=== PATIENT | male | born 1940 | race Caucasian/White ===

== ENCOUNTER 2018-09-08 11:14 | Outpatient (REF) | payer MEDICARE, OTHER, SELFPAY ==
[2018-09-09 11:05] LABS: Campylobacter PCR SEE COMMENTS; Salmonella PCR SEE COMMENTS; Shiga Toxin PCR SEE COMMENTS; Shigella/Enteroinvasive Ecoli SEE COMMENTS
== END 2018-09-08 11:34 ==
LOC: LBN 11:14
PROVIDERS: Visit Provider Nurse Practitioner Family
DX: R19.4 Change in bowel habit (principal)
CPT/HCPCS: 87329; 87505; 87177; 87324

== ENCOUNTER 2018-10-10 08:54 | Outpatient (CLI) | payer MEDICARE, OTHER, SELFPAY ==
[2018-10-13 11:29] LABS: PSA, Diagnostic 9.3 ng/ml (0-6.5)
== END 2018-10-10 09:14 ==
PROVIDERS: Visit Provider Urology
DX: R97.20 Elevated prostate specific antigen [PSA] (principal)
CPT/HCPCS: 36415; 99213; 84153

== ENCOUNTER 2019-03-31 01:48 | Outpatient (CLI) | payer MEDICARE, OTHER, SELFPAY ==
[2019-03-31 11:11] LABS: ALT 17 U/L (12-78); AST 13 U/L (15-37); Albumin 3.5 g/dL (3.4-5.0); Alkaline Phosphatase 67 U/L (46-116); Anion Gap 10.4 mmol/L (3-11); BUN 14 mg/dL (7-18); Bilirubin, Total 0.5 mg/dL (0.2-1.0); CO2 25.6 mmol/L (21.0-32.0); CREATININE 0.67 mg/dL (0.70-1.30); Calcium 8.9 mg/dL (8.5-10.1); Chloride 106 mmol/L (98-107); Glucose 98 mg/dL (70-100); Potassium 4.3 mmol/L (3.5-5.1); Sodium 142 mmol/L (136-145); Total Protein 6.4 g/dL (6.4-8.2)
[2019-03-31 14:25] LABS: Calculated LDL 131; Cholesterol 202 mg/dL (50-200); HDL Cholesterol 41 mg/dL (40-60); Triglyceride 150 mg/dL (30-150)
[2019-04-01 09:40] LABS: PSA, Diagnostic 9.1 ng/ml (0-6.5)
== END 2019-03-31 02:08 ==
PROVIDERS: Urology
DX: E78.5 Hyperlipidemia, unspecified (principal); K21.9 Gastro-esophageal reflux disease without esophagitis; M17.12 Unilateral primary osteoarthritis, left knee; R97.20 Elevated prostate specific antigen [PSA]
CPT/HCPCS: 36415; 80053; 80061; 83721; 84153

== ENCOUNTER → 2019-05-12 13:58 | Outpatient (BNVA) | payer MEDICARE, OTHER, SELFPAY | PROVIDERS: Visit Provider Urology | DX: R97.20 Elevated prostate specific antigen [PSA] (principal); N40.0 Benign prostatic hyperplasia without lower urinary tract symptoms | CPT/HCPCS: 99213 ==

== ENCOUNTER 2019-11-06 11:03 | Outpatient (CLI) | payer MEDICARE, OTHER, SELFPAY ==
[2019-11-09 10:28] LABS: PSA, Diagnostic 9.6 ng/mL (0.0-6.5)
== END 2019-11-06 11:23 ==
PROVIDERS: Visit Provider Urology
DX: R97.20 Elevated prostate specific antigen [PSA] (principal)
CPT/HCPCS: 36415; 84153

== ENCOUNTER → 2019-11-13 07:54 | Outpatient (BNVA) | payer MEDICARE, OTHER, SELFPAY | PROVIDERS: Referring Provider Family Medicine; Visit Provider Urology | DX: R97.20 Elevated prostate specific antigen [PSA] (principal); R39.15 Urgency of urination; R35.0 Frequency of micturition | CPT/HCPCS: 99213 ==

== ENCOUNTER 2020-05-10 01:43 | Outpatient (CLI) | payer MEDICARE, SELFPAY ==
[2020-05-11 09:56] LABS: PSA, Diagnostic 8.3 ng/mL (0.0-6.5)
== END 2020-05-10 02:03 ==
PROVIDERS: PCP Family Medicine; Visit Provider Urology
DX: R97.20 Elevated prostate specific antigen [PSA] (principal)
CPT/HCPCS: 36415; 84153

== ENCOUNTER → 2020-05-13 07:53 | Outpatient (BNVA) | payer MEDICARE, OTHER, SELFPAY | PROVIDERS: PCP Family Medicine; Visit Provider Urology | DX: R39.15 Urgency of urination (principal); R97.20 Elevated prostate specific antigen [PSA] | CPT/HCPCS: 99213 ==

== ENCOUNTER 2020-11-03 03:19 | Outpatient (CLI) | payer MEDICARE, OTHER, SELFPAY ==
[2020-11-03 21:52] LABS: PSA, Diagnostic 10.6 ng/mL (0.0-6.5)
== END 2020-11-03 03:39 ==
PROVIDERS: PCP Family Medicine; Visit Provider Urology
DX: R97.20 Elevated prostate specific antigen [PSA] (principal)
CPT/HCPCS: 36415; 84153

== ENCOUNTER → 2020-11-11 07:48 | Outpatient (BNVA) | payer MEDICARE, OTHER, SELFPAY | PROVIDERS: PCP Family Medicine; Referring Provider Family Medicine; Visit Provider Urology | DX: R35.1 Nocturia (principal); R97.20 Elevated prostate specific antigen [PSA] | CPT/HCPCS: 99213; 99214 ==

== ENCOUNTER 2021-01-16 09:18 | Outpatient (CLI) | payer MEDICARE, OTHER, SELFPAY ==
--- NOTE | 2021-01-16 09:00 | DI.RAD_ITS ---
EXAM: XR SHOULDER LT COMPLETE 2+V CLINICAL HISTORY: pain. TECHNIQUE: 2D digital imaging was performed. COMPARISON: CR RIGHT SHOULDER COMPLETE from 03/11/2017 FINDINGS: Limited two view study of the left shoulder reveals no evidence of fracture. There is slight upward subluxation of the humeral head in the glenoid fossa which may be associated with significant rotator cuff pathology. There also degenerative subarticular cysts in the lateral aspect of the humeral hea d. Moderate degenerative changes are noted in the glenohumeral joint. There are no calcifications i n the subacromial space. There appears to be a deformity in the clavicle which is probably healed fr acture site. The AC joint is not distracted. IMPRESSION: DATA REPOSITORY: RADIATION DOSE DELIVERED:
--- NOTE | 2021-01-16 09:00 | DI.RAD_ITS ---
EXAM: XR KNEE LT 1V CLINICAL HISTORY: preop. TECHNIQUE: 2D digital imaging was performed. COMPARISON: CR LEFT KNEE 3 VIEW COMPLETE from 10/15/2016 FINDINGS: Single lateral view of the left knee compared to 10/15/2016. Narrowing of the medial joint spaces again noted. On this lateral view there is a thin linear wire d ensity measuring 3 cm in length located behind the distal femur as seen on this single lateral view, not evident in October 2018. Additional views are recommended. IMPRESSION: As above. Probable wire like foreign body. Additional views recommended. DATA REPOSITORY: RADIATION DOSE DELIVERED:
--- NOTE | 2021-01-16 09:00 | DI.RAD_ITS ---
EXAM: XR STANDING ALIGNMENT CLINICAL HISTORY: preop. TECHNIQUE: 2D digital imaging was performed. COMPARISON: CR LEFT KNEE 3 VIEW COMPLETE from 10/15/2016 FINDINGS: There is advanced gdgv-so-ijuy narrowing of the medial compartment of the left knee. Small degenerat shreya subarticular cysts are noted in the medial femoral condyle at this level. Lateral compartment of the left knee exhibits normal height. In the opposite knee there is only mild narrowing of the medi al compartment. Moderate degenerative changes are noted in both hips. Ankles appear unremarkable. No osseous lesion s. However, there is a wire like foreign body measuring 3 cm in length located in the soft tissues m edial to the left knee. Additional views recommended. This finding was not evident on left knee ezio in films performed October 2016 IMPRESSION: Advanced narrowing medial compartment of left knee. Wire like foreign body medial aspect left knee level which was not evident in 2017. Additional views recommended. DATA REPOSITORY: RADIATION DOSE DELIVERED:
== END 2021-01-16 09:19 | disposition home or self-care (01) ==
LOC: DIORS 09:18
PROVIDERS: PCP Family Medicine; Referring Provider Family Medicine; Visit Provider Student in an Organized Health Care Education/Training Program
DX: M17.12 Unilateral primary osteoarthritis, left knee (principal); M25.512 Pain in left shoulder; M75.102 Unspecified rotator cuff tear or rupture of left shoulder, not specified as traumatic; M25.312 Other instability, left shoulder
CPT/HCPCS: 99213; 73030; 73560; 77073

== ENCOUNTER 2021-01-23 09:04 | Outpatient (CLI) | payer MEDICARE, OTHER, SELFPAY ==
[2021-01-23 11:14] LABS: HCT 30.6 % (40.0-50.0); HGB 8.2 g/dL (13.5-17.5); MCH 19.1 pg (27.0-33.0); MCHC 26.8 % (32.0-36.0); MCV 71.2 fL (80-95); MPV 10.3 fL (8.0-11.0); Platelet Count 287 10^3/uL (130-400); RDW 18.7 % (11.8-14.1); RDW-SD 47.8 fL; WBC 2.91 10^3/uL (4.4-10.8)
[2021-01-23 11:31] LABS: Anion Gap 8.4 mmol/L (3-11); BUN 16 mg/dL (7-18); CO2 28.6 mmol/L (21.0-32.0); CREATININE 0.7 mg/dL (0.70-1.30); Calcium 9.1 mg/dL (8.5-10.1); Chloride 106 mmol/L (98-107); Glucose 86 mg/dL (74-106); Potassium 4.5 mmol/L (3.5-5.1); Sodium 143 mmol/L (136-145)
[2021-01-23 11:33] LABS: Source Nasal/Nares
[2021-01-23 16:34] LABS: Absolute Basophil Count 0.02 10^3/uL (0.0-0.2); Absolute Eosinophil Count 0.14 10^3/uL (0.0-0.7); Absolute Lymphocyte Count 0.63 10^3/uL (1.2-3.4); Absolute Monocyte Count 0.28 10^3/uL (0.1-0.8); Absolute Neutrophil Count 1.75 10^3/uL (1.2-6.7); Basophils % 0.7; Lymphocytes % 22.3; Monocytes % 9.9; Neutrophils % 62.1
[2021-01-23 16:35] LABS: Iron 20 ug/dL (65-175); Total Iron Binding Capacity 429 ug/dL (250-450); Transferrin Sat 5 % (20-55)
[2021-01-23 16:51] LABS: Ferritin 4 ng/mL (26-388)
[2021-01-23 20:06] LABS: COVID-19 PCR Negative (Negative)
[2021-01-23 21:45] LABS: PSA, Diagnostic 10.7 ng/mL (0.0-6.5)
[2021-01-25 10:36] LABS: ALT 16 U/L (16-63); AST 10 U/L (15-37); Alkaline Phosphatase 64 U/L (46-116); Bilirubin, Direct 0.1 mg/dL (0.0-0.2); Bilirubin, Total 0.3 mg/dL (0.2-1.0); Total Protein 6.6 g/dL (6.4-8.2)
== END 2021-01-23 09:05 | disposition home or self-care (01) ==
LOC: LBO 09:05
PROVIDERS: Urology; PCP Family Medicine; Visit Provider Student in an Organized Health Care Education/Training Program
DX: M25.562 Pain in left knee (principal); M17.12 Unilateral primary osteoarthritis, left knee; D72.819 Decreased white blood cell count, unspecified; D64.9 Anemia, unspecified; R97.20 Elevated prostate specific antigen [PSA]; Z20.822 Contact with and (suspected) exposure to COVID-19; Z01.818 Encounter for other preprocedural examination; Z01.812 Encounter for preprocedural laboratory examination
CPT/HCPCS: 36415; 80048; 80076; 85027; 87635; 82728; 83540; 83550; 84153; 85007; 85025

== ENCOUNTER 2021-01-23 10:21 | Outpatient (CLI) | payer MEDICARE, OTHER, SELFPAY | END 2021-01-23 10:22 | disposition home or self-care (01) | PROVIDERS: PCP Family Medicine; Visit Provider Student in an Organized Health Care Education/Training Program | DX: Z01.818 Encounter for other preprocedural examination (principal); M17.12 Unilateral primary osteoarthritis, left knee ==

== ENCOUNTER 2021-01-24 22:47 | Outpatient (REF) | payer MEDICARE, OTHER, SELFPAY ==
[2021-01-24 23:23] LABS: HCT 30.9 % (40.0-50.0); HGB 8.3 g/dL (13.5-17.5); MCH 19.4 pg (27.0-33.0); MCHC 26.9 % (32.0-36.0); MCV 72.2 fL (80-95); MPV 10.9 fL (8.0-11.0); Platelet Count 303 10^3/uL (130-400); RBC 4.28 10^6/uL (4.36-5.78); RDW 18.5 % (11.8-14.1); WBC 2.96 10^3/uL (4.4-10.8)
== END 2021-01-24 22:48 | disposition home or self-care (01) ==
LOC: LBN 22:47
PROVIDERS: PCP Family Medicine; Visit Provider Family Medicine
DX: D64.9 Anemia, unspecified (principal)
CPT/HCPCS: 85027

== ENCOUNTER 2021-02-01 01:25 | Outpatient (CLI) | payer MEDICARE, OTHER, SELFPAY ==
--- NOTE | 2021-02-01 08:45 | DI.MRI_ITS ---
EXAM: MR UPPER JOINT LT WO CLINICAL HISTORY: LT SHOULDER PAIN AFTER TRAUMA, M25.519,M25.512 TECHNIQUE: Multiplanar multisequence MRI of the shoulder was performed. COMPARISON: CR XR SHOULDER LT COMPLETE 2+V from 01/16/2021 FINDINGS: MARROW:There is no evidence of fracture nor Hill-Sachs deformity. In large degenerative subarticular cysts noted in the lateral aspect the humeral head measuring approximately 3 cm by 2.4 cm. ROTATOR CUFF MECHANISM: AC JOINT/ACROMIUM: Degenerative changes with impingement.. There is no evidence of os acromiale. Supraspinatus: There is a large full-thickness tear with retraction of the musculotendinous junction to the mid aspect of the humeral head. Moderate atrophy. Infraspinatus: Prominent tendinosis signal. Partial tearing at the musculotendinous junction. Howev er, there is no full-thickness tear. Teres Minor: Intact. No evidence of tear nor muscle atrophy. Subscapularis/anterior cuff: Tendinitis signal. No full-thickness tear. No prominent atrophy BICEPS TENDON: Evident within the intertubercular groove but exhibits tearing and the biceps anchor i s not visualized and presumed torn. LABRUM: In superior labrum there is intrasubstance signal abnormality consistent degenerative change, most prominent and anterior oasis superiorly. There is also some tearing of the anterior labrum. A lso tearing of the posterior labrum. Inferior labrum appears relatively intact GLENOHUMERAL JOINT: Small amount of increased joint fluid. There is fluid in the subacromial bursa. Mild degenerative cartilage changes. No osteophytes. Small degenerative subarticular cysts noted i n the superior osseous glenoid. Inferior glenohumeral ligament is intact. QUADRILATERAL SPACE: No evidence of mass in the region of the axillary nerve and dorsal circumflex hu meral vessels. Visualized triceps muscle at this level appears unremarkable. IMPRESSION: 1. High-grade full-thickness tear of the supraspinatus rotator cuff with retraction musculotendinous junction to the mid humeral head level. Moderate muscle atrophy. There is fluid in the subacromial bursa. There is some pinch mint at the level of the AC joint and acromion. 2. Prominent tendinosis signal in the infraspinatus but without a full-thickness tear. Prominent deg enerative subarticular cyst in the greater tuberosity and posterior lateral aspect of the humeral hea d subjacent to the infraspinatus attachment. Tendinosis signal in the anterior cuff-subscapularis. 3. Biceps tendon tear and multilevel labral tears. 4. Degenerative changes in the glenohumeral joint. No osteophytes. DATA REPOSITORY:
== END 2021-02-01 01:45 ==
PROVIDERS: PCP Family Medicine; Visit Provider Student in an Organized Health Care Education/Training Program
DX: M25.512 Pain in left shoulder (principal); M75.102 Unspecified rotator cuff tear or rupture of left shoulder, not specified as traumatic; S46.212A Strain of muscle, fascia and tendon of other parts of biceps, left arm, initial encounter; M19.012 Primary osteoarthritis, left shoulder
CPT/HCPCS: 73221

== ENCOUNTER → 2021-02-02 11:13 | Outpatient (BNVA) | payer MEDICARE, OTHER, SELFPAY | PROVIDERS: PCP Family Medicine; Referring Provider Family Medicine; Visit Provider Surgery | DX: D50.9 Iron deficiency anemia, unspecified (principal); D72.819 Decreased white blood cell count, unspecified; K21.9 Gastro-esophageal reflux disease without esophagitis; G47.33 Obstructive sleep apnea (adult) (pediatric) | CPT/HCPCS: 99213; 99215 ==

== ENCOUNTER 2021-02-02 13:08 | Outpatient (REF) | payer MEDICARE, OTHER, SELFPAY ==
[2021-02-02 14:42] LABS: HCT 31.5 % (40.0-50.0); HGB 8.5 g/dL (13.5-17.5); MCH 19.5 pg (27.0-33.0); MCV 72.2 fL (80-95); MPV 10.5 fL (8.0-11.0); Platelet Count 236 10^3/uL (130-400); RBC 4.36 10^6/uL (4.36-5.78); RDW-SD 49.8 fL; Reticulocyte 2.2 % (0.5-2.4); WBC 3.58 10^3/uL (4.4-10.8)
[2021-02-02 14:45] LABS: Iron 134 ug/dL (65-175); Total Iron Binding Capacity 419 ug/dL (250-450); Transferrin Sat 32 % (20-55)
[2021-02-02 14:53] LABS: Prothrombin Time 9.6 sec (9.3-11.0)
[2021-02-02 14:56] LABS: ALT 17 U/L (16-63); AST 9 U/L (15-37); Albumin 3.8 g/dL (3.4-5.0); Alkaline Phosphatase 68 U/L (46-116); Anion Gap 11.1 mmol/L (3-11); BUN 14 mg/dL (7-18); Bilirubin, Total 0.4 mg/dL (0.2-1.0); C-Reactive Protein 0.23 mg/dL (0.0-0.3); CO2 26.9 mmol/L (21.0-32.0); CREATININE 0.7 mg/dL (0.70-1.30); Calcium 8.9 mg/dL (8.5-10.1); Chloride 105 mmol/L (98-107); Glucose 110 mg/dL (74-106); Potassium 4.1 mmol/L (3.5-5.1); Sodium 143 mmol/L (136-145); Total Protein 7.2 g/dL (6.4-8.2)
[2021-02-02 15:35] LABS: Ferritin 6 ng/mL (26-388); Folate 17.4 ng/mL (8.6-20.0); Vitamin B12 179 pg/mL (193-986)
== END 2021-02-02 13:09 | disposition home or self-care (01) ==
LOC: LBN 13:08
PROVIDERS: PCP Family Medicine; Visit Provider Surgery
DX: R73.01 Impaired fasting glucose (principal); D50.9 Iron deficiency anemia, unspecified; D64.9 Anemia, unspecified; D72.819 Decreased white blood cell count, unspecified; E78.5 Hyperlipidemia, unspecified; K21.9 Gastro-esophageal reflux disease without esophagitis; G47.33 Obstructive sleep apnea (adult) (pediatric); N40.0 Benign prostatic hyperplasia without lower urinary tract symptoms
CPT/HCPCS: 80053; 85027; 82607; 82728; 82746; 83540; 83550; 85045; 85610; 86140

== ENCOUNTER 2021-02-08 04:14 | Outpatient (CLI) | payer MEDICARE, OTHER, SELFPAY ==
[2021-02-08 10:53] LABS: Source Nasal/Nares
[2021-02-08 15:50] LABS: COVID-19 PCR Negative (Negative)
== END 2021-02-08 04:15 | disposition home or self-care (01) ==
LOC: LBO 04:14
PROVIDERS: PCP Family Medicine; Visit Provider Surgery
DX: Z20.822 Contact with and (suspected) exposure to COVID-19 (principal)
CPT/HCPCS: 87635

== ENCOUNTER 2021-02-10 09:05 | Day surgery (SDC) | payer MEDICARE, OTHER, SELFPAY ==
--- NOTE | 2021-02-10 | DI.CT_ITS ---
Exam(s) CT ABDOMEN PELVIS W EXAM: CT ABDOMEN PELVIS W CLINICAL HISTORY: Fe defn anemia TECHNIQUE: Imaging Protocol: Axial computed tomography images with coronal and sagittal reformatted images were created and reviewed CONTRAST MATERIAL: Intravenous: Omnipaque 350 Contrast volume:100 mL Oral: yes / no COMPARISON: No exams were available for comparison FINDINGS: ABDOMEN: Lung Bases: There is scarring or atelectasis in the lung bases. Liver: Normal density. No measurable mass. Portal, Superior Mesenteric, and Splenic Veins: Unremarkable. Gallbladder and Biliary Tract: No radiodense calculus or dilation. Pancreas: Normal density, no abnormal calcifications or inflammatory process. Spleen: Normal. Adrenals: No masses seen. Kidneys: Normal size, contour and axis. No radiodense stones or obstructive uropathy. Numerous bilate ral renal cysts. The largest is in the superior pole of the right kidney and measures 10.0 x 10.3 x 8.3 cm. Abdominal Aorta: Abdominal portion non-dilated. Mild to moderate atherosclerosis. Bowel: No obstruction or bowel wall thickening. Appendix is unremarkable. Diverticulosis of the sigmo id colon is noted but no acute diverticulitis. There is a large hiatal hernia with a large portion o f the stomach above the diaphragm. Peritoneal Cavity: No ascites, collection or mesenteric inflammatory response. No free air. Lymph Nodes: Within normal limits. Bones: Moderately severe degenerative changes are seen in the lumbar spine. Soft Tissues: Unremarkable. PELVIS: Bladder: Symmetric distention, no gross wall thickening. Reproductive Organs: The prostate gland is markedly enlarged measuring 7.1 x 7.2 x 8 cm. Lymph Nodes: Within normal limits. Bones: Degenerative changes in the lumbar spine. IMPRESSION: 1. Polycystic kidneys. 2. Sigmoid diverticulosis but no evidence of acute diverticulitis. 3. Large hiatal hernia. 4. Marked enlarged prostate gland. RADIATION DOSE DELIVERED: 859.25mGy.cm Total DLP DATA REPOSITORY: All CT scans at this facility are submitted to the National Radiology Data Registry (NRDR) Dose Index Registry (DIR) with the [employer] (A[employer]). RADIATION OPTIMIZATION: All CT scans at this facility use at least one of these dose optimization te chniques: automated exposure control; mA and/or kV adjustment per patient size (includes targeted exa ms where dose is matched to clinical indication); or iterative reconstruction.
--- NOTE | 2021-02-10 09:04 | ANES.PREOP_ITS ---
General Info Date of Service Date Performed: 02/10/21 Height: 5 ft 8 in Weight: 79.889 kg Body Mass Index (BMI): 26.7 Surgical Procedure: Operation Date: 02/10/21 09:50 Proposed Procedures Side Surgeon p Colonoscopy/Gastroscopy Janessa Elizalde, DO Meds Allergies and Home Medications Allergies Allergy/AdvReac Type Severity Reaction Status Date / Time No Known Allergies Allergy Verified 02/07/21 14:34 Home Medication Medication Instructions Recorded acetaminophen 1 tab PO PRN 02/05/18 ferrous sulfate 65 mg PO DAILY 02/07/21 vitamin [id number]-[id number] acid 1 tab SUBLINGUAL DAILY 02/07/21 Current Visit Medications: Current Medications Generic Name Dose Route Start Last Admin Trade Name Freq PRN Reason Stop Dose Admin Iron Sucrose 200 mg/ Sodium 110 mls @ 400 mls/hr 02/10/21 06:00 Chloride IVPB 02/10/21 18:00 DIRECTED XAVIER Ringer's Solution 1,000 mls @ 80 mls/hr 02/10/21 06:00 IV 03/11/21 23:59 INFUSION [facility] IV Miscellaneous Supplies 1 each 02/10/21 06:00 Iv Access IV 03/11/21 23:59 DIRECTED XAVIER Sodium Chloride 0 ml 02/10/21 06:00 Normal Saline Flush 10 Ml Syr IV 03/11/21 23:59 PRN PRN Sodium Chloride 0 ml 02/10/21 06:00 Normal Saline 10 Ml Vial IJ 03/11/21 23:59 DIRECTED PRN Sterile Water 0 ml 02/10/21 06:00 Water,Injection,Sterile 10 Ml Vial IJ 03/11/21 23:59 DIRECTED PRN PFSH Active Problems Active Problems: Problem Status Onset Code Fe deficiency anemia D50.9 Leukopenia D72.819 Anemia D64.9 Advanced directives, counseling/discussion Z71.89 Encounter for [employer] (FAA) examination Z02.9 Onychomycosis B35.1 Pain of shoulder after trauma M25.519 Osteoarthritis of left knee M17.12 Rotator cuff tear, left M75.102 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 Bilateral carpal tunnel syndrome G56.03 Closed fracture of clavicle S42.009A Clostridium difficile diarrhea 08/11/15 A04.72 Enteritis due to Giardia species 11/05/15 A07.1 Sciatica of right side 02/05/17 M54.31 Primary osteoarthritis of left knee 10/15/16 M17.12 Obstructive sleep apnea syndrome G47.33 Inflammatory polyps of colon 01/06/16 K51.40 Impaired fasting glucose 10/20/15 R73.01 Hyperlipidemia 06/16/13 E78.5 Hives 08/11/15 L50.9 Hemorrhoids K64.9 Gastroesophageal reflux disease 06/16/13 K21.9 Elevated PSA 09/23/17 R97.20 Degeneration of intervertebral disc Calcaneal spur, right 10/15/16 M77.31 BPH without urinary obstruction N40.0 Medical History Medical History (Updated 02/10/21 @ 09:18 by Matthew Flores) Bilateral carpal tunnel syndrome BPH without urinary obstruction ?of nodule; increasing PSA; S/P biopsy 2006; FM HX-prostate CA Calcaneal spur, right (10/15/16) Carpal tunnel syndrome on both sides Closed fracture of clavicle Clostridium difficile diarrhea (08/11/15) 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 changes; L5-S-1 spondylolithesis Elevated PSA (09/23/17) Enteritis due to Giardia species (08/11/15) Gastroesophageal reflux disease (06/16/13) HH with reflux, s/p dilitation of esophagus Hemorrhoids Hives (08/11/15) ? due to shrimp Hyperlipidemia (06/16/13) Impaired fasting glucose (10/20/15) Inflammatory polyps of colon (01/06/16) [facility] [place]; TRANSVERSE COLON Obstructive sleep apnea syndrome oral appliance uvulopalatopharyngoplasty Primary osteoarthritis of left knee (10/15/16) Sciatica of right side (02/05/17) Surgical History Surgical History (Updated 02/10/21 @ 09:18 by Matthew Flores) Biopsy, Temporal Artery (12/27/11) History of biopsy Hx of tonsillectomy PANCREATIC BIOPSY X 3 pt. states he is un aware of this. UPPP (Uvulopalatopharyngoplasty) Tobacco Smoking/Tobacco Use Status: Never Passive smoking exposure: No Alcohol Alcohol Intake: current Alcohol intake frequency: holidays/special occasions only Substance Use Substance use: Never Substance use type: does not use Vital Signs and Lab Results Lab Results Blood Type / Crossmatch: No Data to Display Complete Blood Count: White Blood Count 3.58 10^3/uL (4.4-10.8) L 02/02/21 12:30 02/02/21 Red Blood Count 4.36 10^6/uL (4.36-5.78) 02/02/21 12:30 02/02/21 Hemoglobin 8.5 g/dL (13.5-17.5) L 02/02/21 12:02/02/21 Hematocrit 31.5 % (40.0-50.0) L 02/02/21 12:02/02/21 Platelet Count 236 10^3/uL (130-400) 02/02/21 12:30 02/02/21 Complete Metabolic Panel: Sodium Level 143 mmol/L (136-145) 02/02/21 12:30 02/02/21 Potassium Level 4.1 mmol/L (3.5-5.1) 02/02/21 12:02/02/21 Chloride Level 105 mmol/L (98-107) 02/02/21 12:02/02/21 Carbon Dioxide Level 26.9 mmol/L (21.0-32.0) 02/02/21 12:02/02/21 Blood Urea Nitrogen 14 mg/dL (7-18) 02/02/21 12:30 02/02/21 Creatinine 0.7 mg/dL (0.70-1.30) 02/02/21 12:30 02/02/21 Magnesium Level 2.0 mg/dL (1.8-2.4) 12/18/11 01:55 12/18/11 Calcium Level 8.9 mg/dL (8.5-10.1) 02/02/21 12:02/02/21 Albumin 3.8 g/dL (3.4-5.0) 02/02/21 12:02/02/21 Glucose Level 110 mg/dL (74-106) H 02/02/21 12:30 02/02/21 C-Reactive Protein 0.23 mg/dL (0.0-0.3) 02/02/21 12:30 02/02/21 Liver Function Panel: Alanine Aminotransferase (ALT/SGPT) 17 U/L (16-63) 02/02/21 12:30 02/02/21 Aspartate Amino Transf (AST/SGOT) 9 U/L (15-37) L 02/02/21 12:30 02/02/21 Coagulation Panel: INR International Normalized Ratio 1.0 (0.9-1.1) 02/02/21 12:30 02/02/21 Prothrombin Time 9.6 sec (9.3-11.0) 02/02/21 12:30 02/02/21 Cardiac Panel: Troponin I < 0.04 ng/mL (0.00-0.06) 12/18/11 01:55 12/18/11 Arterial Blood Gas: No Data to Display Venous Blood Gas: No Data to Display Pancreas Panel: No Data to Display Thyroid Panel: No Data to Display Infectious Disease: Coronavirus (COVID-19)(PCR) Negative (Negative) 02/08/21 10:34 02/08/21 Coronavirus 2019 Source Nasal/nares 02/08/21 10:34 02/08/21 Blood Cultures: No Data to Display Toxicology Panel: No Data to Display Anesthesia Assessment and Plan Anesthesia History Personal History: No History of Anesthesia Complications Family History: No Family History of Anesthesia Complications Exercise Tolerance Exercise Tolerance: Metabolic Equivalents>4 Pertinent Negatives Pertinent Negatives: No Symptoms of GERD, No Major Cardiovascular Symptoms or Complaints, No Major Pulmonary Symptoms or Complaints and No History of CVA/TIA Cardiac & Pulmonary Exam Cardiac Exam: Normal S1/S2 Heart Sounds Pulmonary Exam: Clear Bilateral Breath Sounds Airway Exam Known Difficult Airway: No Mallampati Class: 1 Mouth Opening: Normal (> 3cm) Thyromental Distance: Greater than 3 cm Neck Range of Motion: Full ROM Neck Circumference: Normal Teeth Condition: Normal Dentition Tooth Numberin. Missing ASA Classification ASA Score: ASA 2 Emergency Case?: No NPO Status NPO Status: NPO Clears >2 hours, Solids >8 hours Anesthesia Plan Anesthesia Technique: General Anesthesia Airway Planned: Natural Airway Monitors Used: Standard Monitors
[2021-02-10 09:21] VITALS: BP 120/71; PULSE 65; RESP 16; TEMP 36.4; O2SAT 99
--- NOTE | 2021-02-10 09:42 | W.COLOREPORT ---
Date of service: 02/10/21 Time of Service: 09:42 Colonoscopy Report Date of procedure: 02/10/21 Pre-op diagnosis general: iron defn anemia Surgeon: Janessa Elizalde Anesthesia Type: General:No Airway Complications: None Disposition: same day Prep: Miralax/Dulcolax Retraction Time: 8 Procedure Description: After informed consent was obtained the patient was taken to the procedure room and placed in a left decubitous position. Monitors were applied and a time out was done. The patients name, date of , procedure, allergies to medications and metal in their body was reviewed. The patient was then sedated. Once sedated and comfortable a rectal exam was done. External exam was normal. Internal exam revealed a normal sphincter tone and no palpable masses. The scope was then introduced and retrofelexed. no internal hemorrhoids were identified. His colon is very tortuous. It is also quite floppy and has poor tone. The scope was then advanced to the cecum. I Was unable to drop the scope into the cecum itself. However I could see down into the cecum and there were no abnormalities. Multiple maneuvers were attempted including prone positioning and abdominal pressure, but the scope could not be advanced into the cecum.. The TI and appendiceal orifice were identified. The prep was good. The scope was then slowly retracted over 8 minutes back into the rectum. There are no polyps or masses. He does have minor diverticula confined in the sigmoid colon with no signs of active bleeding or infection. There are no AVMs. There are no masses or other abnormalities to account for his anemia. The scope was removed and the patient was woken up and taken back to Same day surgery in stable condition. The patient tolerated the procedure well and there were no immediate complications. Follow up: The patient should does not require any further colonoscopies, unless they develop changes in bowel habits or other new gastrointestinal complaints.
[2021-02-10] MEDS: Lactated Ringers 1,000 ML 80 ML IV (09:43)
--- NOTE | 2021-02-10 09:43 | ENDO_ITS ---
Date of service: 02/10/21 Time of Service: 09:43 Endoscopy Report DATE OF PROCEDURE: 02/10/21 PRE-OP DIAGNOSIS: anemia POST-OP DIAGNOSIS: other (duodenitis and hiatal hernia ) SURGEON: Janessa Elizalde ANESTHESIA TYPE: General:No Airway ESTIMATED BLOOD LOSS: 0 PATHOLOGY: other COMPLICATIONS: None DISPOSITION: same day PREP: Miralax/Dulcolax PROCEDURE DESCRIPTION: After informed consent was obtained the patient was take to the procedure room and placed in a supine position. Monitors were applied and a time out was done. The patients name, date of , procedure type, allergies to medications and metal in their body was reviewed. A bite block was placed and the patient was sedated. Once sedated and comfortable the gastroscope was advanced through the oropharynx which was grossly normal into the esophagus. The proximal and mid-esophagus were nl. In the distal esophagus there is no esophageal erosions, varices, diverticula or strictures apparent. The esophagus is very tortuous. There is some mild gastritis in the dependent portion/greater curvature. the scope was advanced into the stomach and through the pylorus into the 3rd portion of the duodenum. The duodenum was noted:mild duodenitis. Biopsies were done. All specimens are retrieved and no bleeding is noted. The scope was retracted back into the stomach and biopsies were done to rule out H. pylori. There were no ulcers. The scope was retroflexed. The cardia and fundus were noted to be normal. There moderate/4cm a hiatal hernia noted. The scope was retracted back into the esophagus and biopsies were done of the GE junction to rule out Pickering's. The Z line was regular. The GE junction was at 38 cm. The scope was removed and the patient was woken up and taken back to [facility] in stable condition. Follow up:
--- NOTE | 2021-02-10 09:49 | DSE_ITS ---
Date of service: 02/10/21 Time of Service: 09:49 DS: Diagnosis Discharge Diagnosis (1) Fe deficiency anemia: Status: Acute Discharge Plan Discharge Details Attending Provider: Janessa Elizalde Primary Care Provider: Lobo Mc Home Meds and New Rx's Prescriptions: No Action acetaminophen 500 MG tablet 1 tab PO PRN RF: 0 ferrous sulfate 325 mg (65 mg iron) Tablet 65 mg PO DAILY RF: 0 vitamin W35-aivdx acid 1,000-400 mcg Tablet, Sublingual 1 tab SUBLINGUAL DAILY RF: 0 DS: Data Vitals/I&O Vitals and I&O: Vital Signs Temperature 36.4 C L 02/10/21 09:21 Pulse 65 02/10/21 09:21 Pulse Rhythm Regular 02/10/21 09:21 Respiratory Rate 16 02/10/21 09:21 Respiratory Depth Normal 02/10/21 09:21 Blood Pressure 120/71 02/10/21 09:21 Pulse Oximetry 99 02/10/21 09:21 Oxygen Delivery Method Room Air 02/10/21 09:21 Oxygen Flow Rate 0 02/10/21 09:21 Pain Level 0 02/10/21 09:21 Intake & Output 02/09/21 02/09/21 02/10/21 11:59 23:59 11:59 Weight 79 kg Data Completed and Pending Labs on day of discharge: Labs from last 24 hours 02/10/21 02/10/21 09:22 09:21 Haptoglobin Pending Total Protein (PEP) Pending Albumin % (PEP) Pending [id number] (%) Pending [id number] (%) Pending Beta Globulins (%) Pending Gamma Globulins (%) Pending M-Clayton % Pending PEP Comment Pending [facility] Medical History (Updated 02/10/21 @ 09:18 by Matthew Flores) Bilateral carpal tunnel syndrome BPH without urinary obstruction ?of nodule; increasing PSA; S/P biopsy 2005; FM HX-prostate CA Calcaneal spur, right (10/15/16) Carpal tunnel syndrome on both sides Closed fracture of clavicle Clostridium difficile diarrhea (08/11/15) 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 changes; L5-S-1 spondylolithesis Elevated PSA (09/23/17) Enteritis due to Giardia species (08/11/15) Gastroesophageal reflux disease (06/16/13) HH with reflux, s/p dilitation of esophagus Hemorrhoids Hives (08/11/15) ? due to shrimp Hyperlipidemia (06/16/13) Impaired fasting glucose (10/20/15) Inflammatory polyps of colon (01/06/16) [facility]; TRANSVERSE COLON Obstructive sleep apnea syndrome oral appliance uvulopalatopharyngoplasty Primary osteoarthritis of left knee (10/15/16) Sciatica of right side (02/05/17) Surgical History (Updated 02/10/21 @ 09:18 by Matthew Flores) Biopsy, Temporal Artery (12/27/11) History of biopsy Hx of tonsillectomy PANCREATIC BIOPSY X 3 pt. states he is un aware of this. UPPP (Uvulopalatopharyngoplasty) Family History Mother , 87 Heart disease Hyperlipidemia Stroke Father , 87 Hyperlipidemia Stroke Skin cancer Brother Hyperlipidemia Asthma Brother , 79 Hyperlipidemia Throat cancer Prostate cancer Depression Hypertension Maternal Grandfather No problems noted. Paternal Grandfather No problems noted. Maternal Grandmother No problems noted. Paternal Grandmother No problems noted. Son No problems noted. Son No problems noted. Social History Smoking/Tobacco Use Status: Never Smoking risk assessment performed?: Yes Alcohol Intake: current Alcohol Intake frequency: holidays/special occasions only Drug use: Never Substance use type: does not use Caregiver/Support person: No Household members: spouse Housing: house Communication Needs: None Do you need help understanding health information?: Rarely Pets and animals: No Sexually active: Yes Do you think of yourself as: straight/heterosexual Current gender identity: male What is your relationship status?: How often do you talk on the phone with friends or family?: once per week How often do you get together with friends or relatives?: once per week How often do you attend denominational or sikhism services?: 1-3 times per year Do you belong to any clubs or organized social groups?: yes Panel score (0-1 are the most socially isolated patients): 2 What type of physical activity do you participate in: other Details: yard and house work Duration: > 90 minutes/day Frequency: daily Charley/Congregational: [employer] Special charley needs: No Seatbelt use: always Helmet use: Yes Helmet use: always Drive intox or ride w/intox compressed air pile driver operator: No Do you feel safe at home: Yes Do you feel safe in your relationship?: Yes
--- NOTE | 2021-02-10 09:52 | PDOC.DSDIS_ITS ---
Discharge Plan Disposition Patient Disposition: HOME Condition: Good Discharge Details Reason For Visit: endoscopy Attending Provider: Janessa Elizalde Primary Care Provider: Lobo Mc Home Meds and New Rx's Prescriptions: No Action acetaminophen 500 MG tablet 1 tab PO PRN RF: 0 ferrous sulfate 325 mg (65 mg iron) Tablet 65 mg PO DAILY RF: 0 vitamin J98-[id number] acid 1,000-400 mcg Tablet, Sublingual 1 tab SUBLINGUAL DAILY RF: 0 Discharge Instructions Additional Instructions: DSU Colonoscopy Post- Op Instructions Instructions for Everyone who is given Anesthesia: For your safety, please do the following for the next twenty-four (24) hours: *Do Not operate a motor vehicle (car, truck, motorcycle, etc.) *Do Not drink alcoholic beverages or use any recreational drugs for the first 24 hours or while taking pain medications. The medications in your body may have a reaction that can be dangerous. *Do Not make any important decisions or sign any important papers. Findings:hiatal hernia/mild duodenitis diverticula Follow up: 02/16 1pm w/ Dr. Elizalde 1. No lifting over 20 pounds or strenuous activity for the first 24 hours after your procedure. After 24 hours there are no restrictions on your activity but you may feel fatigued for a few days. 2. After you arrive home you may have a light meal and return to your normal diet as you can tolerate it without feeling sick to your stomach. 3. You may have a bloated, gaseous feeling in your belly (abdomen) after a colonoscopy. Passing gas and belching will help. Walking or lying down on your left side with your knees flexed may relieve the discomfort. Call the office at [phone] (Office) or [phone] (Hospital) right away if you notice any of the following: a.Vomiting of blood or ?coffee ground stools?. b.Rectal bleeding 1Tbsp, blood clots or continuous bleeding. c.Severe belly (abdominal) pain. d.A hard distended belly (abdomen) and an inability to pass gas. 4. Please don?t expect to have a normal BM (bowel movement) for 2-3 days after your procedure. 5. If there are questions regarding the findings of your procedure, please contact your doctor 6. If you are unable to contact your doctor with a problem, contact the [facility] at [phone]. 7. Continue all your regular medications unless directed otherwise. I understand the above instructions and have no questions. Signature of Patient or Adult Escort Name of Responsible Adult Escort Signature of Nurse Date/Time Activity:: as above Diet:: as above Discharge Orders Discharge Orders: Discharge Order (Routine); Ordered 02/09/21 Ordered By: Janessa Elizalde DS: Diagnosis Discharge Diagnosis (1) Fe deficiency anemia: Status: Acute
--- NOTE | 2021-02-10 10:05 | STOM_PTH ---
PATIENT: Jed Carbajal LOC: [facility] U#:[id number] AGE/SX: 80/M ROOM: RE02/10/[address]: Janessa Elizalde : 1940 BED: DIS: 02/10/2021 SPEC #: [id number] RECD: 02/10/21 12:51 STATUS: KARLA RE #: [id number] TREASURE: 02/10/21 10:[address]: Janessa Elizalde DEPT: Surgical Specimen RECD BY: Fadia Lei ENTERED: 02/10/21 12:55 SP TYPE: STOMACH OTHR DR: Lobo Mc MD Tissues: 1 - BIOPSY BOWEL 2 - BIOPSY BOWEL 3 - STOMACH BIOPSY 4 - STOMACH BIOPSY 5 - ESOPHAGUS BIOPSY 6 - ESOPHAGUS BIOPSY Procedures: GROSS AND MICRO LEVEL 4 Comments: [id number]
[2021-02-10 10:28] VITALS: BMI 26.7
[2021-02-10 10:45] VITALS: BP 89/56; PULSE 65; RESP 20; TEMP 36.3; O2SAT 89
--- NOTE | 2021-02-10 10:46 | W.ANESPOSTOP ---
Postoperative Evaluation Date, Time and Location Date Performed: 02/10/21 Time Performed: 10:47 Patient Location: Day Surgery Unit Vital Signs Most Recent Imported Vital Signs: Most Recent Vital Signs Temp Pulse Resp BP Pulse Ox 36.4 C L 65 16 120/71 99 02/10/21 09:21 02/10/21 09:21 02/10/21 09:21 02/10/21 09:21 02/10/21 09:21 Most Recent Manually Entered Vital Signs: Adult Blood Pressure: 103/71 Heart Rate: 66 Respirations: 16 Oxygen Saturation (%): 92 Temperature (C): 36.3 C Pain Score (0-10 Scale): 0 Pain Score Most Recent Pain Score: Most Recent Pain Score Pain Level 0 02/10/21 09:21 Assessment Mental Status: Arousable with meaningful communication Airway and Respiratory Function: Patent airway with normal (patient baseline) respiratory exam Cardiovascular Function: Hemodynamically Stable Hydration Status: Adequately Hydrated Nausea & Vomiting: No Nausea or Vomiting Pain: Pt. Denies Any Pain Peripheral Nerve Block: Patient did not receive a nerve block
[2021-02-10 10:52] VITALS: BP 103/71; PULSE 66; RESP 16; TEMPC 36.3; O2SAT 92
[2021-02-10 10:54] VITALS: BP 103/71; PULSE 58; RESP 14; O2SAT 91
[2021-02-10] MEDS: Breeza Beverage 473 ML BTL PO ×2 (10:57→10:58)
[2021-02-10] MEDS: Omnipaque 350 MG/ML 50 ML BTL PO (10:58)
[2021-02-10 11:01] VITALS: BP 101/60; PULSE 60; RESP 14; O2SAT 93
[2021-02-10] MEDS: IRON SUCROSE COMPLEX 200 MG in Normal Saline 100 ML 400 MG IVPB (11:09)
[2021-02-10 11:12] VITALS: BP 101/49; PULSE 60; RESP 14; TEMP 36.4; O2SAT 96
[2021-02-10 12:45] LABS: HCT 31.9 % (40.0-50.0); HGB 8.7 g/dL (13.5-17.5)
[2021-02-10] MEDS: Omnipaque 350 MG/ML 100 ML BTL IJ (13:51)
[2021-02-10] MEDS: Normal Saline - Diluent 50 ML VIAL IV (13:52)
--- NOTE | 2021-02-10 14:01 | NUR.NOTE ---
To CT and back tolerated well. Up to BR independently. IV access discontinued. Awaiting discharge order.Nursing Note:
[2021-02-13 09:23] LABS: Haptoglobin 163 mg/dL (32-197)
[2021-02-13 14:33] LABS: Albumin 59.9 % (55.8-66.1); Total Protein 6.2 g/dL (6.3-8.2)
== END 2021-02-10 15:00 | disposition home or self-care (01) ==
PROVIDERS: PCP Family Medicine; Visit Provider Surgery
PROC: (CPT 43239; principal; 2021-02-10 09:45)
DX: D50.9 Iron deficiency anemia, unspecified (principal); K29.70 Gastritis, unspecified, without bleeding; K29.80 Duodenitis without bleeding; K44.9 Diaphragmatic hernia without obstruction or gangrene
CPT/HCPCS: 43239; 45378; 88305; 74177; 83010; 84165; 85014; 85018; J1756; J2001; J3490; Q9967

== ENCOUNTER → 2021-02-16 13:05 | Outpatient (BNVA) | payer MEDICARE, OTHER, SELFPAY | PROVIDERS: PCP Family Medicine; Referring Provider Family Medicine; Visit Provider Surgery | DX: Z48.815 Encounter for surgical aftercare following surgery on the digestive system (principal); D51.9 Vitamin B12 deficiency anemia, unspecified; D50.9 Iron deficiency anemia, unspecified; D72.819 Decreased white blood cell count, unspecified | CPT/HCPCS: 99213; 99214 ==

== ENCOUNTER 2021-03-01 02:54 | Outpatient (RCR) | payer MEDICARE, OTHER, SELFPAY ==
[2021-02-23] MEDS: Normal Saline Flush 10 ML SYR IVP (09:34)
[2021-02-23] MEDS: IRON SUCROSE COMPLEX 300 MG in Normal Saline 250 ML 176.667 MG IVPB (09:42)
[2021-03-01] MEDS: IRON SUCROSE COMPLEX 300 MG in Normal Saline 250 ML 176.667 MG IVPB (07:03)
[2021-03-01] MEDS: Normal Saline Flush 10 ML SYR IVP (07:04)
== END 2021-03-06 23:59 | disposition home or self-care (01) ==
LOC: INF 02:54
PROVIDERS: PCP Family Medicine; Visit Provider Surgery
DX: D50.9 Iron deficiency anemia, unspecified (principal)
CPT/HCPCS: 96365; 96366; J1756

== ENCOUNTER 2021-03-08 02:54 | Outpatient (RCR) | payer MEDICARE, OTHER, SELFPAY ==
[2021-03-08] MEDS: Normal Saline Flush 10 ML SYR IVP (07:01)
[2021-03-08] MEDS: IRON SUCROSE COMPLEX 300 MG in Normal Saline 250 ML 176.667 MG IVPB (07:01)
== END 2021-04-05 23:59 | disposition home or self-care (01) ==
LOC: INF 02:54
PROVIDERS: PCP Family Medicine; Visit Provider Surgery
DX: D50.9 Iron deficiency anemia, unspecified (principal)
CPT/HCPCS: 96365; J1756

== ENCOUNTER 2021-03-28 03:14 | Outpatient (CLI) | payer MEDICARE, OTHER, SELFPAY ==
[2021-03-28 10:26] LABS: Abs Immature Grans 0.01 10^3/uL (0.0-0.06); Absolute Basophil Count 0.02 10^3/uL (0.0-0.2); Absolute Eosinophil Count 0.19 10^3/uL (0.0-0.7); Absolute Lymphocyte Count 0.66 10^3/uL (1.2-3.4); Absolute Monocyte Count 0.22 10^3/uL (0.1-0.8); Absolute Neutrophil Count 1.64 10^3/uL (1.2-6.7); Basophils % 0.7; Eosinophils % 6.9; HCT 42.5 % (40.0-50.0); Immature Grans % 0.4; Lymphocytes % 24.1; MCH 25.3 pg (27.0-33.0); MCHC 30.6 % (32.0-36.0); MCV 82.7 fL (80-95); MPV 9.8 fL (8.0-11.0); Neutrophils % 59.9; Nucleated RBC 0 %; Platelet Count 189 10^3/uL (130-400); RBC 5.14 10^6/uL (4.36-5.78); RDW 24.7 % (11.8-14.1); RDW-SD 72.8 fL; WBC 2.74 10^3/uL (4.4-10.8)
[2021-03-28 11:04] LABS: Anisocytosis 1+
[2021-03-28 11:05] LABS: Microcytosis 1+; Polychromasia Present
[2021-03-28 13:53] LABS: Iron 101 ug/dL (65-175); Total Iron Binding Capacity 314 ug/dL (250-450); Transferrin Sat 32 % (20-55)
== END 2021-03-28 03:15 | disposition home or self-care (01) ==
LOC: LBO 03:14
PROVIDERS: PCP Family Medicine; Visit Provider Surgery
DX: D50.9 Iron deficiency anemia, unspecified (principal)
CPT/HCPCS: 36415; 83540; 83550; 85025

== ENCOUNTER → 2021-03-29 09:19 | Outpatient (BNVA) | payer MEDICARE, OTHER, SELFPAY | PROVIDERS: PCP Family Medicine; Referring Provider Family Medicine; Visit Provider Surgery | DX: D51.9 Vitamin B12 deficiency anemia, unspecified (principal); D72.819 Decreased white blood cell count, unspecified; D50.9 Iron deficiency anemia, unspecified | CPT/HCPCS: 99212; 99213 ==

== ENCOUNTER → 2021-05-12 07:54 | Outpatient (BNVA) | payer MEDICARE, OTHER, SELFPAY | PROVIDERS: PCP Family Medicine; Referring Provider Family Medicine; Visit Provider Urology | DX: R39.15 Urgency of urination (principal); R97.20 Elevated prostate specific antigen [PSA] | CPT/HCPCS: 36415; 99213; 99214 ==

== ENCOUNTER 2021-05-12 08:41 | Outpatient (REF) | payer MEDICARE, OTHER, SELFPAY ==
[2021-05-12 18:22] LABS: PSA, Diagnostic 10.7 ng/mL (0.0-6.5)
== END 2021-05-12 08:42 | disposition home or self-care (01) ==
LOC: LBN 08:41
PROVIDERS: PCP Family Medicine; Visit Provider Urology
DX: R97.20 Elevated prostate specific antigen [PSA] (principal)
CPT/HCPCS: 84153

== ENCOUNTER 2021-08-16 13:18 | Outpatient (CLI) | payer MEDICARE, OTHER, SELFPAY ==
[2021-08-16 13:25] LABS: Abs Immature Grans 0.01 10^3/uL (0.0-0.06); Absolute Basophil Count 0.02 10^3/uL (0.0-0.2); Absolute Eosinophil Count 0.18 10^3/uL (0.0-0.7); Absolute Lymphocyte Count 0.96 10^3/uL (1.2-3.4); Absolute Monocyte Count 0.25 10^3/uL (0.1-0.8); Absolute Neutrophil Count 2.72 10^3/uL (1.2-6.7); Basophils % 0.5; Eosinophils % 4.3; HCT 46.2 % (40.0-50.0); Immature Grans % 0.2; Lymphocytes % 23.2; MCH 30.6 pg (27.0-33.0); MCHC 32.5 % (32.0-36.0); MCV 94.3 fL (80-95); MPV 9.9 fL (8.0-11.0); Neutrophils % 65.8; Nucleated RBC 0 %; Platelet Count 211 10^3/uL (130-400); RDW 13.6 % (11.8-14.1); RDW-SD 47.4 fL; WBC 4.14 10^3/uL (4.4-10.8)
[2021-08-16 15:26] LABS: Iron 56 ug/dL (65-175); Total Iron Binding Capacity 215 ug/dL (250-450); Transferrin Sat 26 % (20-55)
[2021-08-16 16:20] LABS: Calcium 8.9 mg/dL (8.5-10.1); Glucose 151 mg/dL (74-106)
[2021-08-16 16:21] LABS: Albumin 3.8 g/dL (3.4-5.0); Alkaline Phosphatase 79 U/L (46-116); BUN 16 mg/dL (7-18); Bilirubin, Total 0.4 mg/dL (0.2-1.0); CREATININE 0.8 mg/dL (0.70-1.30); Chloride 106 mmol/L (98-107); Potassium 3.9 mmol/L (3.5-5.1); Sodium 145 mmol/L (136-145); Total Protein 6.8 g/dL (6.4-8.2)
[2021-08-16 16:22] LABS: ALT 19 U/L (16-63); AST 12 U/L (15-37); Anion Gap 12.3 mmol/L (3-11); CO2 26.7 mmol/L (21.0-32.0); Ferritin 68 ng/mL (26-388); Folate 15.3 ng/mL (8.6-20.0); TSH (W/Ref FT4) 1.39 uIU/mL (0.36-3.74); Vitamin B12 590 pg/mL (193-986)
[2021-08-17 14:49] LABS: Hemoglobin A1C 5.6 % (<5.7)
== END 2021-08-16 13:19 | disposition home or self-care (01) ==
LOC: LBO 13:27
PROVIDERS: PCP Family Medicine; Visit Provider Family Medicine
DX: D72.819 Decreased white blood cell count, unspecified; D64.9 Anemia, unspecified; I10 Essential (primary) hypertension; K51.40 Inflammatory polyps of colon without complications; Z01.818 Encounter for other preprocedural examination
CPT/HCPCS: 36415; 80053; 82607; 82728; 82746; 83036; 83540; 83550; 84443; 85025

== ENCOUNTER 2021-08-21 12:21 | Outpatient (CLI) | payer MEDICARE, OTHER, SELFPAY | END 2021-08-21 12:22 | disposition home or self-care (01) | PROVIDERS: PCP Family Medicine; Visit Provider Family Medicine | DX: R69 Illness, unspecified (principal) ==

== ENCOUNTER → 2021-09-06 12:49 | Outpatient (BNVA) | payer MEDICARE, OTHER, SELFPAY | PROVIDERS: PCP Family Medicine; Referring Provider Family Medicine | DX: M17.12 Unilateral primary osteoarthritis, left knee (principal) | CPT/HCPCS: 99213 ==

== ENCOUNTER 2021-09-11 02:46 | Outpatient (CLI) | payer MEDICARE, OTHER, SELFPAY ==
[2021-09-11 09:04] LABS: HCT 45.3 % (40.0-50.0); HGB 14.6 g/dL (13.5-17.5); MCH 30.7 pg (27.0-33.0); MCHC 32.2 % (32.0-36.0); MCV 95.4 fL (80-95); Platelet Count 180 10^3/uL (130-400); RBC 4.75 10^6/uL (4.36-5.78); RDW 13.1 % (11.8-14.1); RDW-SD 45.9 fL; WBC 3.56 10^3/uL (4.4-10.8)
[2021-09-11 09:46] LABS: Anion Gap 6.9 mmol/L (3-11); BUN 14 mg/dL (7-18); CO2 30.1 mmol/L (21.0-32.0); CREATININE 0.7 mg/dL (0.70-1.30); Calcium 8.7 mg/dL (8.5-10.1); Chloride 104 mmol/L (98-107); Glucose 94 mg/dL (74-106); Potassium 4.4 mmol/L (3.5-5.1); Sodium 141 mmol/L (136-145)
== END 2021-09-11 02:47 | disposition home or self-care (01) ==
LOC: LBO 02:46
PROVIDERS: PCP Family Medicine; Visit Provider Student in an Organized Health Care Education/Training Program
DX: M17.12 Unilateral primary osteoarthritis, left knee; Z01.818 Encounter for other preprocedural examination
CPT/HCPCS: 36415; 80048; 85027

== ENCOUNTER 2021-09-11 03:01 | Outpatient (CLI) | payer MEDICARE, OTHER, SELFPAY ==
[2021-09-11 10:23] LABS: Source Nasal/Nares
[2021-09-11 14:19] LABS: COVID-19 PCR Negative (Negative)
== END 2021-09-11 03:02 | disposition home or self-care (01) ==
LOC: LBO 03:01
PROVIDERS: PCP Family Medicine; Visit Provider Student in an Organized Health Care Education/Training Program
DX: Z20.822 Contact with and (suspected) exposure to COVID-19 (principal)
CPT/HCPCS: 36415; 80048; 85027; 87635

== ENCOUNTER 2021-09-12 05:59 | Day surgery (SDC) | payer MEDICARE, OTHER, SELFPAY ==
[2021-09-12] VITALS (11 sets, daily range): BP systolic 108–132; BP diastolic 68–86; PULSE 50–76; RESP 10–17; TEMP 36.1–36.5; O2SAT 94–959; BMI 25.5
--- NOTE | 2021-09-12 05:00 | W.ANESPRE ---
General Info Date of Service Date Performed: 09/12/21 Height: 5 ft 9 in Weight: 78.471 kg Body Mass Index (BMI): 25.5 Surgical Procedure: Operation Date: 09/12/21 07:40 Proposed Procedures Side Surgeon p Knee Total Arthroplasty Left Richard Iglesias MD Meds Allergies and Home Medications Allergies Allergy/AdvReac Type Severity Reaction Status Date / Time No Known Allergies Allergy Verified 09/12/21 06:27 Home Medication Medication Instructions Recorded ferrous sulfate 65 mg PO DAILY 02/07/21 vitamin K24-wctqs acid 1 tab SUBLINGUAL DAILY 02/07/21 acetaminophen 1,000 mg PO Q8H PRN PRN #90 cap 09/12/21 aspirin 81 mg PO BID #60 tab 09/12/21 celecoxib [Celebrex] 200 mg PO BID #60 cap 09/12/21 gabapentin 300 mg PO QHS #14 cap 09/12/21 oxycodone 5 mg PO Q4H PRN #18 tab 09/12/21 pantoprazole [Protonix] 40 mg PO DAILY #30 tab 09/12/21 Current Visit Medications: Current Medications Generic Name Dose Route Start Last Admin Trade Name Freq PRN Reason Stop Dose Admin Acetaminophen 1,000 mg 09/12/21 06:00 Acetaminophen 500 Mg Tab PO 09/12/21 16:00 PREOP XAVIER Celecoxib 400 mg 09/12/21 06:00 Celecoxib 200 Mg Cap PO 09/12/21 16:00 PREOP XAVIER Gabapentin 300 mg 09/12/21 06:00 Gabapentin 300 Mg Cap PO 09/12/21 16:00 PREOP XAVIER Tranexamic Acid 1,000 mg/ 60 mls @ 360 mls/hr 09/12/21 06:00 Sodium Chloride IVPB 09/12/21 16:00 PREOP XAVIER Tranexamic Acid 1,000 mg/ 60 mls @ 360 mls/hr 09/12/21 06:00 Sodium Chloride IVPB 09/12/21 16:00 INFUSION XAVIER Cefazolin Sodium/Dextrose 2 gm in 50 mls @ 100 mls/hr 09/12/21 06:00 Ancef Duplex IVPB 09/12/21 16:00 PREOP XAVIER PFSH Active Problems Active Problems: Problem Status Onset Code B12 deficiency anemia D51.9 Advanced directives, counseling/discussion Z71.89 Encounter for Federal Aviation Administration (FAA) examination Z02.9 Onychomycosis B35.1 Pain of shoulder after trauma M25.519 Osteoarthritis of left knee M17.12 Rotator cuff tear, left M75.102 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 Anemia D64.9 Leukopenia D72.819 Fe deficiency anemia D50.9 Bilateral carpal tunnel syndrome G56.03 Closed fracture of clavicle S42.009A Clostridium difficile diarrhea 08/11/15 A04.72 Enteritis due to Giardia species 08/11/15 A07.1 Sciatica of right side 02/05/17 M54.31 Primary osteoarthritis of left knee 10/15/16 M17.12 Obstructive sleep apnea syndrome G47.33 Inflammatory polyps of colon 01/06/16 K51.40 Impaired fasting glucose 10/20/15 R73.01 Hyperlipidemia 06/16/13 E78.5 Hives 08/11/15 L50.9 Hemorrhoids K64.9 Gastroesophageal reflux disease 06/16/13 K21.9 Elevated PSA 09/23/17 R97.20 Degeneration of intervertebral disc Calcaneal spur, right 10/15/16 M77.31 BPH without urinary obstruction N40.0 Medical History Active Problem List B12 deficiency anemia (Acute) Advanced directives, counseling/discussion (Acute) Encounter for Federal Aviation Administration (FAA) examination (Acute) Onychomycosis (Acute) Pain of shoulder after trauma (Acute) Osteoarthritis of left knee (Acute) Rotator cuff tear, left (Acute) Rotator cuff insufficiency of left shoulder (Acute) Anemia (Chronic) Leukopenia (Acute) Fe deficiency anemia (Acute) Sciatica of right side (Chronic 02/05/17) Primary osteoarthritis of left knee (Acute 10/15/16) Obstructive sleep apnea syndrome (Chronic) Inflammatory polyps of colon (Chronic 01/06/16) Impaired fasting glucose (Chronic 10/20/15) Hyperlipidemia (Chronic 06/16/13) Gastroesophageal reflux disease (Chronic 06/16/13) Elevated PSA (Acute 09/23/17) Degeneration of intervertebral disc (Chronic) Calcaneal spur, right (Chronic 10/15/16) BPH without urinary obstruction (Acute) Medical History Carpal tunnel syndrome on both sides Surgical History Surgical History Biopsy, Temporal Artery (12/27/11) History of colonoscopy (~02/10/21) History of esophagogastroduodenoscopy (EGD) (~02/10/21) Hx of tonsillectomy PANCREATIC BIOPSY X 3 pt. states he is un aware of this. UPPP (Uvulopalatopharyngoplasty) Tobacco Smoking/Tobacco Use Status: Never Passive smoking exposure: No Alcohol Alcohol Intake: current Alcohol intake frequency: a few times a week Alcohol type: wine Substance Use Substance use: Never Substance use type: does not use Vital Signs and Lab Results Vital Signs Most Recent Vital Signs in EMR: Temp Pulse Resp BP Pulse Ox 36.5 C 64 16 120/84 98 09/12/21 06:09 09/12/21 06:09 09/12/21 06:09 09/12/21 06:09 09/12/21 06:09 Lab Results Blood Type / Crossmatch: No Data to Display Complete Blood Count: White Blood Count 3.56 10^3/uL (4.4-10.8) L 09/11/21 09:00 09/11/21 Red Blood Count 4.75 10^6/uL (4.36-5.78) 09/11/21 09:00 09/11/21 Hemoglobin 14.6 g/dL (13.5-17.5) 09/11/21 09:00 09/11/21 Hematocrit 45.3 % (40.0-50.0) 09/11/21 09:00 09/11/21 Platelet Count 180 10^3/uL (130-400) 09/11/21 09:00 09/11/21 Complete Metabolic Panel: Sodium Level 141 mmol/L (136-145) 09/11/21 09:00 09/11/21 Potassium Level 4.4 mmol/L (3.5-5.1) 09/11/21 09:00 09/11/21 Chloride Level 104 mmol/L (98-107) 09/11/21 09:00 09/11/21 Carbon Dioxide Level 30.1 mmol/L (21.0-32.0) 09/11/21 09:00 09/11/21 Blood Urea Nitrogen 14 mg/dL (7-18) 09/11/21 09:00 09/11/21 Creatinine 0.7 mg/dL (0.70-1.30) 09/11/21 09:00 09/11/21 Estimated GFR/1.73 m2 >= 60.00 (mL/min/1.73m2) 09/11/21 09:00 09/11/21 Calcium Level 8.7 mg/dL (8.5-10.1) 09/11/21 09:00 09/11/21 Albumin 3.8 g/dL (3.4-5.0) 08/16/21 13:22 08/16/21 Glucose Level 94 mg/dL (74-106) 09/11/21 09:00 09/11/21 Hemoglobin A1c 5.6 % (<5.7) 08/16/21 13:20 08/16/21 Liver Function Panel: Alanine Aminotransferase (ALT/SGPT) 19 U/L (16-63) 08/16/21 13:22 08/16/21 Aspartate Amino Transf (AST/SGOT) 12 U/L (15-37) L 08/16/21 13:22 08/16/21 Coagulation Panel: No Data to Display Cardiac Panel: No Data to Display Arterial Blood Gas: No Data to Display Venous Blood Gas: No Data to Display Pancreas Panel: No Data to Display Thyroid Panel: Thyroid Stimulating Hormone (TSH) 1.39 uIU/mL (0.36-3.74) 08/16/21 13:22 08/16/21 Infectious Disease: Coronavirus (COVID-19)(PCR) Negative (Negative) 09/11/21 09:43 09/11/21 Coronavirus 2019 Source Nasal/Nares 09/11/21 09:43 09/11/21 Blood Cultures: No Data to Display Toxicology Panel: No Data to Display Imaging and Studies Imaging and Studies Study information below may be from another EMR and interpreted by another provider. Please see original notes in EMR for more complete details. EKG Summary: 08/2021: Sinus rhythm.IVCD, consider RBBB. Anesthesia Assessment and Plan Anesthesia History Personal History: No History of Anesthesia Complications Family History: No Family History of Anesthesia Complications Exercise Tolerance Exercise Tolerance: Metabolic Equivalents>4 Cardiac & Pulmonary Exam Cardiac Exam: Normal S1/S2 Heart Sounds Pulmonary Exam: Clear Bilateral Breath Sounds Implantable Cardiac Device Does patient have a Pacemaker or an ICD?: No Airway Exam Known Difficult Airway: No Mallampati Class: 1 Mouth Opening: Normal (> 3cm) Thyromental Distance: Greater than 3 cm Neck Range of Motion: Full ROM Neck Circumference: Normal Teeth Condition: Normal Dentition ASA Classification ASA Score: ASA 2 Emergency Case?: No NPO Status NPO Status: NPO Clears >2 hours, Solids >8 hours Anesthesia Plan Resuscitation Status: Full Code Anesthesia Technique: Spinal Anesthesia Airway Planned: Natural Airway Monitors Used: Standard Monitors Preoperative Comments:: 81 yo male for left TKA. Sig PMHx: anemia, GERD (well controlled), denies any other major health history. Previous Anes: no issues. No previous airway history seen.
--- NOTE | 2021-09-12 06:29 | W.PM.DSUDISC ---
Documented by User: JAY Cabral 09/12/21 06:35 Discharge Plan Disposition Patient Disposition: HOME Condition: Good Discharge Details Reason For Visit: Left TKA Attending Provider: Richard Iglesias Primary Care Provider: Lobo Mc Home Meds and New Rx's Prescriptions: New celecoxib [Celebrex] 200 mg capsule 200 mg PO BID Qty: 60 RF: 0 aspirin 81 mg tablet,delayed release (DR/EC) 81 mg PO BID Qty: 60 RF: 0 pantoprazole [Protonix] 40 mg tablet,delayed release (DR/EC) 40 mg PO DAILY Qty: 30 RF: 0 gabapentin 300 mg capsule 300 mg PO QHS Qty: 14 RF: 0 oxycodone 5 mg tablet 5 mg PO Q4H PRNQty: 18 RF: 0 acetaminophen 500 mg capsule 1,000 mg PO Q8H PRN PRNQty: 90 RF: 0 Continued ferrous sulfate 325 mg (65 mg iron) Tablet 65 mg PO DAILY RF: 0 vitamin W53-otpns acid 1,000-400 mcg Tablet, Sublingual 1 tab SUBLINGUAL DAILY RF: 0 Discontinued acetaminophen 500 MG tablet 1 tab PO PRN RF: 0 Discharge Instructions Additional Instructions: Total Knee Discharge Instructions Activity: The most important activity is to walk. You should try to take short walks a few times a day. It is important that when resting you work on keeping the knee straight. Avoid putting a pillow behind the knee as this will encourage flexion. Work on range of motion exercises as provided by Physical Therapy. If you have the [employer] bike coming, this will be your primary tool for exercise after the knee replacement. You should use it and follow the directions for the knee. Utilize the other exercises sparingly based on your symptoms. - Start outpatient physical therapy within 2 weeks. - You should wear the PINKY hose on both legs for 2 weeks. You may remove these at night. You may also use any compression sock in place of the PINKY hose. - Utilize [employer] to review exercises, see videos on exercises and obtain basic information pertaining to your surgery and your recovery. Dressing: Remove the Ariel wrap by 2 days after your surgery and put on the PINKY stocking given to you from the hospital. Keep the surgical dressing (underneath the ARIEL wrap) in place for at least one week. After the first week it may be removed and replaced with light gauze and tape or nothing. The wound and dressing may get wet after 3 days but avoid soaking the dressing or otherwise it will need to be changed. Many people prefer covering the dressing with cling wrap (saran wrap) to minimize it from getting soaked. If it gets wet, just pat dry. If it starts to peel off then it will need to be changed. Medications: - You should take Tylenol and anti-inflammatory Celebrex as your primary pain control medications. If the Celebrex is too expensive or not covered, please call the office for another alternative (Advil/Ibuprofen or Naproxen/Aleve) - You have been prescribed a stronger pain medication Oxycodone for breakthrough pain, take as needed as prescribed. - You have also been prescribed a stomach acid reduction agent Pantoprozole to help reduce stomach acid and reflux. - You have been prescribed Gabapentin to take at night for restlessness and nerve pain. - You will be taking Aspirin 81mg twice a day for DVT prevention unless instructed otherwise. - If you have constipation you should take Colace or Miralax (both [id number]). It takes most people 3-4 days to have a bowel movement. Follow-up: 2 weeks If you have any acute concerns or questions, please do not hesitate to contact the office at [phone]. You may contact Dr. Iglesias with any questions after hours through the hospital at [phone] or on his cell phone at [phone]. Stand Alone Forms: Anesthesia Discharge Inst., Anes.Nerve Block Instructions Referrals: Richard Iglesias MD [ [facility] STAFF PHYSICIAN] - (Dr. Iglesias September 25 at 10:00 AM. Physical therapy September 25 at 2:00 PM. ) Equipment/Supplies: Walker Activity:: Activity as Tolerated Remove Dressings/Wound Care:: Do Not Remove Shower/Bathe:: 72 hours Diet:: As Tolerated Discharge Orders Discharge Orders: Discharge Order (Routine); Ordered 09/12/21 Ordered By: Dorene Miller DS: Diagnosis Discharge Diagnosis (1) Osteoarthritis of left knee: Status: Acute Documented by User: Richard Iglesias MD 09/12/21 12:16 Discharge Plan Disposition Patient Disposition: HOME Condition: Good Discharge Details Reason For Visit: Left TKA Attending Provider: Richard Iglesias Primary Care Provider: Lobo Mc Home Meds and New Rx's Prescriptions: New celecoxib [Celebrex] 200 mg capsule 200 mg PO BID Qty: 60 RF: 0 aspirin 81 mg tablet,delayed release (DR/EC) 81 mg PO BID Qty: 60 RF: 0 pantoprazole [Protonix] 40 mg tablet,delayed release (DR/EC) 40 mg PO DAILY Qty: 30 RF: 0 gabapentin 300 mg capsule 300 mg PO QHS Qty: 14 RF: 0 oxycodone 5 mg tablet 5 mg PO Q4H PRNQty: 18 RF: 0 acetaminophen 500 mg capsule 1,000 mg PO Q8H PRN PRNQty: 90 RF: 0 Continued ferrous sulfate 325 mg (65 mg iron) Tablet 65 mg PO DAILY RF: 0 vitamin A27-cldvd acid 1,000-400 mcg Tablet, Sublingual 1 tab SUBLINGUAL DAILY RF: 0 Discontinued acetaminophen 500 MG tablet 1 tab PO PRN RF: 0 Discharge Instructions Additional Instructions: Total Knee Discharge Instructions Activity: The most important activity is to walk. You should try to take short walks a few times a day. It is important that when resting you work on keeping the knee straight. Avoid putting a pillow behind the knee as this will encourage flexion. Work on range of motion exercises as provided by Physical Therapy. If you have the [employer] bike coming, this will be your primary tool for exercise after the knee replacement. You should use it and follow the directions for the knee. Utilize the other exercises sparingly based on your symptoms. - Start outpatient physical therapy within 2 weeks. - You should wear the PINKY hose on both legs for 2 weeks. You may remove these at night. You may also use any compression sock in place of the PINKY hose. - Utilize [employer] to review exercises, see videos on exercises and obtain basic information pertaining to your surgery and your recovery. Dressing: Remove the Ariel wrap by 2 days after your surgery and put on the PINKY stocking given to you from the hospital. Keep the surgical dressing (underneath the ARIEL wrap) in place for at least one week. After the first week it may be removed and replaced with light gauze and tape or nothing. The wound and dressing may get wet after 3 days but avoid soaking the dressing or otherwise it will need to be changed. Many people prefer covering the dressing with cling wrap (saran wrap) to minimize it from getting soaked. If it gets wet, just pat dry. If it starts to peel off then it will need to be changed. Medications: - You should take Tylenol and anti-inflammatory Celebrex as your primary pain control medications. If the Celebrex is too expensive or not covered, please call the office for another alternative (Advil/Ibuprofen or Naproxen/Aleve) - You have been prescribed a stronger pain medication Oxycodone for breakthrough pain, take as needed as prescribed. - You have also been prescribed a stomach acid reduction agent Pantoprozole to help reduce stomach acid and reflux. - You have been prescribed Gabapentin to take at night for restlessness and nerve pain. - You will be taking Aspirin 81mg twice a day for DVT prevention unless instructed otherwise. - If you have constipation you should take Colace or Miralax (both [id number]). It takes most people 3-4 days to have a bowel movement. Follow-up: 2 weeks If you have any acute concerns or questions, please do not hesitate to contact the office at [phone]. You may contact Dr. Iglesias with any questions after hours through the hospital at [phone] or on his cell phone at [phone]. Stand Alone Forms: Anesthesia Discharge Inst., Anes.Nerve Block Instructions Referrals: Richard Iglesias MD [ [facility] STAFF PHYSICIAN] - (Dr. Iglesias September 25 at 10:00 AM. Physical therapy September 25 at 2:00 PM. ) Equipment/Supplies: Walker Activity:: Activity as Tolerated Remove Dressings/Wound Care:: Do Not Remove Shower/Bathe:: 72 hours Diet:: As Tolerated Discharge Orders Discharge Orders: Discharge Order (Routine); Ordered 09/12/21 Ordered By: Dorene Miller
[2021-09-12] MEDS: Gabapentin 300 MG CAP PO (06:34)
[2021-09-12] MEDS: Acetaminophen 500 MG TAB 1000 MG PO (06:34)
[2021-09-12] MEDS: Celecoxib 200 MG CAP 400 MG PO (06:34)
[2021-09-12] MEDS: Lactated Ringers 1,000 ML 80 ML IV (06:46)
--- NOTE | 2021-09-12 07:20 | W.ANESNERVE ---
Nerve Block Single Injection Procedure Date and Time Date Performed: 09/12/21 Procedure Start: 07:12 Location Where Procedure Performed Procedure Location: Day Surgery Unit Reason Performed: Postoperative Analgesia Requesting Provider: Richard Iglesias Timeout Performed Timeout Performed: No Monitoring Used None Used Sterility Sterility: Hand Hygiene, Surgical Cap, Surgical Mask, Sterile Gloves and Chlorhexidine Sedation Given During Procedure Sedation Given (Indicate Dose Given): No Sedation given Patient Mental Status Patient Mental Status: Awake Nerve Block 1st Nerve Block: Laterality: Left Block Type: Adductor Canal Needle / Catheter Used: 100mm SonoPlex II Local Anesthetic Bolus (Indicate Dose Given): Lidocaine used for local infiltration of skin, Injected in 3-5ml increments after negative blood aspiration, Blood noted on aspiration and Bupivacaine 0.375% Dose:: 10 mL Additives (Indicate Dose Given): None Ultrasound: Sterile probe cover and gel used Ultrasound Image Saved?: Yes Nerve Stimulator: Not Used Paresthesia: None Procedure Tolerated: Patient did not tolerate well Procedure Outcome: Successful Procedure Comment: Significant movement/discomfort with skin local and block needle advancement. On insertion of block needle stated that he had a parasthesia, tip of needle was identified within the vastus medialis.Slow advancement was made to the adductor canal. injection was performed, no parasthesia was noted, but he did complain of pressure. He then stated that he felt like he was going to pass out, which he did. The block was complete at this time, his pulse was noted at ~20, a BP was taken and his MAP was ~80 mmHg. Over 20 seconds or so his HR came up to 30-40, no noted heart block, and MAP of 80, with profuse diaphoresis. after about 1 minute he was awake and conversant stating he felt better, just hot. No blood was noted during aspiration and good local anesthesia spread was noted next to the nerve and muscles - it is believe to be a vasovagal event related and not a LAST event. Of note: His femoral artery in the adductor canal had veins at the 9, 10, and 8 o'clock positions. Performed By: Devan Torres
--- NOTE | 2021-09-12 07:20 | NUR.NOTE ---
Episode of decreased HR and loss of conciousness resolving spontaneously immediately after nerve block. Anesthesia in attendance. See anesthesia note. VS stable at present. Nursing Note:
[2021-09-12] MEDS: ceFAZolin 2 GM/50 ML BAG IVPB (07:45)
[2021-09-12] MEDS: Bupivacaine 0.25% Pres-Free 30 ML VIAL (08:07)
[2021-09-12] MEDS: Ketorolac 30 MG/ML VIAL (08:07)
--- NOTE | 2021-09-12 10:29 | ROE_ITS ---
Date of service: 09/12/21 Time of Service: 09:11 Operative Note Operative Note DATE OF PROCEDURE: 09/12/21 PRE-OP DIAGNOSIS: Left Knee Osteoarthritis POST-OP DIAGNOSIS: same PROCEDURE: Left Total Knee Replacement SURGEON: Richard Iglesias [employer] WELLNESS COORDINATOR: Dorene Miller ANESTHESIA TYPE: Spinal Refer to Anesthesia Record ESTIMATED BLOOD LOSS: 200 PATHOLOGY: none sent TOURNIQUET TIME: 28 COMPLICATIONS: None Patient was transported to: PACU Patient's condition: stable Implants: 1. Depuy Attune Cruciate Retaining Femoral Component, Size 6 2. Depuy Attune Rotating Platform Tibial Component, Size 7 3. Depuy Attune 6x8mm CR,RP Poly 4. Depuy Attune Patellar Component, Size 38mm Indications: I have seen Jed in clinic for symptoms of knee arthritis, confirmed with radiographic findings. He has exhausted nonoperative methods and was having significant limitations in daily function and desired better function and less pain. I discussed the technical details of a knee replacement. I explained the risks of the procedure to include, but not limited to, bleeding, infection, pain, stiffness, fracture, damage to nerves and vessels, damage to muscles and tendons, loosening, need for repeat procedure, blood clot and cardiopulmonary demise. Despite these risks, Jed elected to proceed. Findings: There was significant signs of arthritis throughout the knee especially of the medial compartment. Procedure Description: Jed was greeted in the preoperative holding area where the correct side was identified and marked. The consent was reviewed with the patient and signed. The history and physical was updated. All questions were answered. Preoperative mediacations were administered: Acetaminophen 1000mg, Celebrex 400mg, and Gabapentin 300mg. An adductor canal block was then administered by the anesthesia team in the PACU. Jed was taken back to the operating room. A spinal anesthestic was then administered. The patient was placed into the supine position on the operating room table. A nonsterile tourniquet was placed high onto the leg but only used for cementing. Posts were placed for positioning during the procedure. All bony prominences were well padded. Prophylactic antibiotics in the form of Cefazolin were administered. 1g of Tranxemic Acid was given intravenously within 30 minutes of incision. The left leg was then prepped with Chloraprep and draped in a standard fashion with impervious stockinette and extremity drape. A second prep with Chloraprep was performed prior to placing Ioband. A timeout to confirm correct identity, side and site, procedure, allergies, anesthesia, and medical concerns was performed. With the knee in some flexion, a midline incision was made overlying the knee. Full thickness skin flaps were raised once the extensor mechanism was encountered. These were raised medially and laterally. Any bleeding was controlled with electrocautery. Once the extensor mechanism was fully exposed, a medial parapatellar arthrotomy was performed in a flexed position. All bleeding from the arthrotomy and the geniculate arteries was coagulated. A medial subperiosteal peel was performed with electrocautery to the midcoronal plane. The fat pad was removed while keeping the patellar tendon protected. The anterior distal femur synovium was removed for later visualization. The ACL and PCL were resected and the anterior horn of the lateral meniscus was transected. The knee was then flexed with the patella everted. Large osteophytes from the tibia were removed. Large osteophytes from the femur were removed. Using a step drill, and based on preoperative templating, the femoral canal was entered. This was done with a step drill without any difficulty. The intramedullary distal femoral cut guide was inserted, set to a 6 degree valgus cut and 9mm cut thickness. The distal femoral cut guide was then held in position and pinned. With the soft tissues protected, the distal cut was performed. This was passed over a few times to ensure a planar cut. I then turned attention to the tibia. The extramedullary guide was placed onto the leg. The distal aspect was slid medial to adjust for position of center of ankle and stay in line with shaft of the tibia. Approximately 3-5 degrees of posterior slope was kept in the proximal cutting guide. The center of the guide was aligned with the PCL. The stylus was used to assess cut thickness. The medial side, most involved side, was set for a 4mm cut. This was then held in position and pinned into place with 2 additional pins and a cross pin for stability. The medial and lateral collateral ligaments were protected and the cut was performed. With this completed, it was assessed and noted to be of appropriate dimensions. The guide was removed. A spacer block was inserted and the knee was brought into extension. The 7mm spacer block provided full extension, without hyperextension and with stability of both the medial and lateral collateral ligaments was assessed. The pins from the femur and the tibia were then removed. The distal femur was then sized. The anterior stylus was placed onto the lateral ridge of the anterior femur. This indicated a size 6 femur. The external rotation of the guide was adjusted to 3 degrees to match the epicondylar axis, perpendicular to Bollinger?s line. The 4-in-1 cutting guide was the placed. The posterior medial femur cut was evaluated and appeared of good thickness. The spacer block was inserted underneath the cutting guide and stability was confirmed in 90 degrees of flexion. An asmita wing was used to confirm appropriate position of the anterior cut to avoid notching. This cutting guide was ensured to be flush on the cut surface and then pinned into place with headed pins. While protecting the soft tissues, quad tendon, and collateral ligaments, the anterior and posterior cuts were performed with a saw. The central two pins were removed and the posterior and anterior chamfers were cut next. The notch-cutting guide was placed. This was pinned to lateralize the femoral component as much as possible while keeping it flush on the cut surface. This was then pinned into position. A reciprocating saw was used to make the small notch cut. A trial CR femoral component was then inserted, impacted down to the cut surfaces, and the lug holes were drilled. A provisional trial tibial component was placed and the knee was brought through range of motion. The polyethylene was trialed until there was good flexion and extension with excel lent stability to the medial and lateral collaterals. The patella was tracking without thumbs. The tibial cut surface was fully exposed. The medial and lateral menisci were removed. The tibia was then sized as a 7. The tibia had been previously marked during trialing to correspond to the center of the tibial component to help with rotation. The trial was aligned to this aaron, approximately rotated to the medial 1/3rd of the tibial tubercle. The trial was pinned into place. The tibia was prepared with a reamer and a keel punch. The knee was then brought into extension and the patella was measured as 26mm. Using the patellar clamp and cut guide, this was resected to a flat surface with at least 13mm of thickness remaining. The size 38 patella fit the best. This was oriented and then clamped into position. The lugs were drilled. The trial components were removed. The final components, except for the polyethylene were opened on the back table. The periosteal and capsular tissues, especially posteriorly, around the knee were then systematically injected with a periarticular cocktail consisting of 50cc 0.25% Marcaine, 30mg Ketorolac, 20cc of Exparal and 50cc of injectable saline. The tourniquet was then inflated to 275mmHg. The knee was thoroughly irrigated with a pulse lavage and dried. On the back table, with the implants opened, the cement was mixed. 2 batches of antibiotic laden medium viscosity cement were prepared with vacuum assistance. After the cement was ready it was placed on to the back side of the tibial component. A small amount was placed onto the posterior flange of the femur. Cement was manual pressurized and impregnated into the cut surface of the tibia. The tibial component was then inserted into the cut surface and impacted into position. Excess cement was removed and the component was reimpacted. Again, excess cement was removed and our attention was then turned to the femur. The femoral cut surface was once again dried and cement was manually impacted into the cut surface. The femoral component was lined with the lug holes and impacted. Excess cement was removed. It was ensured to be down against the cut surface. The trial polyethylene was then inserted and the leg was brought out into full extension for the duration of the cement curing process, approximately 18min. Cement was lastly manually impacted into the cut surface of the patella and the patellar button was clamped into position and held. During this process attention was turned to the gutters of the knee and for all interfaces for any excess cement. While the cement was hardening, the knee was irrigated with Irrisept chlorhexadine solution. It was allowed to sit in the knee for 3 minutes. After the cement had finally cured, approximately 18min, the clamp was removed from the patella and the knee was taken through range of motion. A size 8mm polyethylene component provided the best range of motion and stability with less than 2mm gapping with medial and lateral stress and full extension without significant hyperextension. The patella was tracking with a no-thumbs technique. The trial poly was removed and once again the knee was checked for any loose, excess, or errant cement. The poly component was then inserted into position after cleaning and drying the tibial tray. The capsule was then reapproximated with a No. 1 Vicryl at multiple locations. The capsule was finally closed with a No. 2 Stratafix, barbed suture. The tourniquet was then released and the arthrotomy appeared watertight without significant bleeding. The second dosing of 1g TXA was started. Deep tissues were then reapproximated with 0 Vicryl and 2-0 Vicryl. The skin was closed with a running 3-0 Monocryl in a subcuticular fashion. This was reinforced with skin glue. A Mepilex silver dressing was applied along with a [id number] MELY wrap. A CryoCuff was applied. Jed was transferred to the hospital bed without difficulty an suffering no apparent complication. Jed has a good prognosis. Physical therapy will start today and without restrictions, weight-bearing as tolerated. Aspirin 81mg BID will be used for DVT prophylaxis.
--- NOTE | 2021-09-12 11:52 | PT.INIE ---
PT Notes Visit Reasons: Left TKA Physical Therapy Inpatient Initial Evaluation Date: 09/12/21 Referring Doctor: Richard Iglesias MD PT Orders: PT CONSULT Precautions: Fall. Standard. Patient Profile/Admitting Diagnosis: L TKA PMHX: Active Problem List (Updated 08/21/21 @ 12:08 by Miguel Angel Jeong MD) B12 deficiency anemia (Acute) Advanced directives, counseling/discussion (Acute) Encounter for [employer] ([employer]) examination (Acute) Onychomycosis (Acute) Pain of shoulder after trauma (Acute) Osteoarthritis of left knee (Acute) Rotator cuff tear, left (Acute) Rotator cuff insufficiency of left shoulder (Acute) Anemia (Chronic) Leukopenia (Acute) Fe deficiency anemia (Acute) Sciatica of right side (Chronic 02/05/17) Primary osteoarthritis of left knee (Acute 10/15/16) Obstructive sleep apnea syndrome (Chronic) Inflammatory polyps of colon (Chronic 01/06/16) Impaired fasting glucose (Chronic 10/20/15) Hyperlipidemia (Chronic 06/16/13) Gastroesophageal reflux disease (Chronic 06/16/13) Elevated PSA (Acute 09/23/17) Degeneration of intervertebral disc (Chronic) Calcaneal spur, right (Chronic 10/15/16) BPH without urinary obstruction (Acute) Medical History (Updated 08/21/21 @ 12:08 by Miguel Angel Jeong MD) Carpal tunnel syndrome on both sides Surgical History (Updated 02/15/21 @ 13:14 by Cristina Garcia RN) Biopsy, Temporal Artery (12/27/11) History of colonoscopy (~02/10/21) History of esophagogastroduodenoscopy (EGD) (~02/10/21) Hx of tonsillectomy PANCREATIC BIOPSY X 3 pt. states he is un aware of this. UPPP (Uvulopalatopharyngoplasty) Social History/Home Situation: Pt lives in a two story home with his and dog Equipment Owned/DME: [employer] with [employer] Subjective: Cleared by nursing to see patient and patient is agreeable to PT. Patient received semi-fowlers in no acute distress. Objective: General Observation: Pt alert and reports fatigue. Mental Status: A&O x3 Pain: Pt report 0/10 pain at rest Vitals: BP: 132/84 semi-fowlers; post ambulation BP 123/79 HR: 87 SpO2: 97% ROM: Right Upper Extremity: Shoulder Flexion WFL. Shoulder abduction WFL. Elbow flexion WFL. Wrist flexion WFL. Opening and closing of hand WFL. Left Upper Extremity: Shoulder Flexion WFL. Shoulder abduction WFL. Elbow flexion WFL. Wrist flexion WFL. Opening and closing of hand WFL. Right Lower Extremity: Hip flexion WFL. Hip abduction WFL. Knee flexion WFL. Ankle dorsiflexion WFL. Ankle plantarflexion WFL. Left Lower Extremity: Hip flexion WFL. Hip abduction WFL. Knee flexion 110deg, knee extension to lacking 1deg. Ankle dorsiflexion WFL. Ankle plantarflexion WFL. Strength: Right Upper Extremity: Shoulder flexors WFL. Shoulder abductors WFL. Elbow flexors WFL. Elbow extensors WFL. [employer] Shift Supervisor strong. Left Upper Extremity: Shoulder flexors WFL. Shoulder abductors WFL. Elbow flexors WFL. Elbow extensors WFL. [employer] Shift Supervisor strong. Right Lower Extremity: Hip flexors 5/5. Hip abductors 5/5. Knee flexors 5/5. Knee extensors 5/5. Ankle dorsiflexors 5/5. Ankle plantarflexors 5/5. Left Lower Extremity: Hip flexors 5/5. Hip abductors 5/5. Knee flexors at least 3/5. Knee extensors at least 3/5. Ankle dorsiflexors 5/5. Ankle plantarflexors 5/5. Sensation: Intact as to pain and pressure on bilateral lower extremities. Bed Mobility/Transfers: Rolling: I Supine to sit: I Sit to supine: I Sit to stand: I Stand to sit: I Bed to chair: ND utilizing [facility] Chair to bed: ND utilizing [facility] Gait: Ambulated 2x40ft with FWW and antalgic gait with reduced stance time and heavy use of BUEs with LLE stance phase. Reciprocal gait pattern. Stairs: Ascent/descent of 12 stairs with B rails and instruction for completion in home environment with unilateral rail and cane. Balance: Static Sitting: WNL Dynamic Sitting: WNL Static Standing: NT Dynamic Standing: NT Special Tests: Mobility Limitations Standardized Measure [facility] 6 clicks Basic Mobility Inpatient Short Form: Raw Score: 24 CMS Score: 0% Informed Consent/Education: Patient instructed in purpose of PT consult and plan of care. Assessment: Patient presents with clinical signs and symptoms consistent with current/admitting diagnoses that have resulted to mobility limitations, gait instability, generalized weakness, and impairment of motor control as demonstrated by the following impairment level findings: 1. Decreased strength to LLE major muscle groups 2. Impaired activity tolerance 3. Limitation of joint range of motion in the LLE Impairments are contributing to the following functional limitations: 1. Inability to safely ambulate without assistive device and physical assistance 2. Increase completion time for mobility ADL performance Patient is assessed as a low complexity based on the following: History: 81 year old male identifying person with impairment level findings, functional limitations, and past medical history as indicated above Examination: Demonstrable impairment in strength and mobility level with underlying impairments and functional limitations as documented above Presentation: Pt presentation consistent with s/p day 0 L TKA without complication. Decision Making: low complexity Treatment ([id number] - 5min): Pt given verbal/visual/tactile cuing for the following exercises with written and visual instructions for HEP: Heel slides with AAROM using belt: 1x10 with 5s hold at end range flexion and 5s quad set at end range extension Knee extension stretch: 1x30s Knee flexion stretch seated: 1x30s DISCHARGE RECOMMENDATIONS: From a mobility perspective, pt is appropriate for DC to home environment with OP PT follow-up as scheduled. TREATMENT CODE/TIME: (35 minutes), [id number] Thank you for the opportunity to participate in the care of this patient.
--- NOTE | 2021-09-12 12:40 | W.ANESPOSTOP ---
Postoperative Evaluation Date, Time and Location Date Performed: 09/12/21 Time Performed: 12:40 Patient Location: Day Surgery Unit Vital Signs Most Recent Imported Vital Signs: Most Recent Vital Signs Temp Pulse Resp BP Pulse Ox 36.5 C 69 16 123/79 98 09/12/21 10:45 09/12/21 11:20 09/12/21 11:20 09/12/21 11:20 09/12/21 11:20 Pain Score Most Recent Pain Score: Most Recent Pain Score Pain Level 0 09/12/21 10:45 Assessment Mental Status: Awake (Alert & Oriented to Patient Baseline) Airway and Respiratory Function: Patent airway with normal (patient baseline) respiratory exam Cardiovascular Function: Hemodynamically Stable Hydration Status: Adequately Hydrated Nausea & Vomiting: No Nausea or Vomiting Pain: Pain is tolerable per patient Peripheral Nerve Block: Regional nerve block not resolved at time of post operative discharge
== END 2021-09-12 13:20 | disposition home or self-care (01) ==
PROVIDERS: PCP Family Medicine; Visit Provider Student in an Organized Health Care Education/Training Program
PROC: (CPT 27447; principal; 2021-09-12 07:30)
DX: M17.12 Unilateral primary osteoarthritis, left knee (principal); G47.33 Obstructive sleep apnea (adult) (pediatric); D50.9 Iron deficiency anemia, unspecified; R73.01 Impaired fasting glucose; G89.18 Other acute postprocedural pain
CPT/HCPCS: 27447; C1776; 76942; 97161; J0690; J1100; J1885; J2405

== ENCOUNTER 2021-09-25 10:14 | Outpatient (CLI) | payer MEDICARE, OTHER, SELFPAY ==
--- NOTE | 2021-09-25 09:45 | DI.RAD_ITS ---
Exam(s) XR KNEE LT 1V XR STANDING ALIGNMENT EXAM: XR STANDING ALIGNMENT CLINICAL HISTORY: 1ST POST OP L TKA. TECHNIQUE: 2D digital imaging was performed. Standing AP views were performed from the pelvis throu gh the ankles. COMPARISON: CR XR STANDING ALIGNMENT from 01/16/2021 FINDINGS: BONES: No acute fracture is present. No bony destructive lesion is seen. The left femoral head projec ts approximately 10 millimeters superior to the right. JOINTS: Knees: Left knee prosthesis.Mild degenerative changes medial femoral tibial joint space of th e right knee. The ankle joint show mild degenerative changes. There are moderate bilateral degenerative changes of both hips. SOFT TISSUE: Normal. IMPRESSION: Approximately 10 millimeter leg length discrepancy. DATA REPOSITORY: RADIATION DOSE DELIVERED:
== END 2021-09-25 10:15 | disposition home or self-care (01) ==
LOC: DIORS 10:14
PROVIDERS: PCP Family Medicine; Referring Provider Family Medicine; Visit Provider Physician Assistant Surgical
DX: Z96.652 Presence of left artificial knee joint (principal); Z47.1 Aftercare following joint replacement surgery
CPT/HCPCS: 73560; 77073

== ENCOUNTER → 2021-10-24 09:04 | Outpatient (BNVA) | payer MEDICARE, OTHER, SELFPAY | PROVIDERS: PCP Family Medicine; Referring Provider Family Medicine; Visit Provider Student in an Organized Health Care Education/Training Program | DX: Z47.1 Aftercare following joint replacement surgery (principal); Z96.652 Presence of left artificial knee joint ==

== ENCOUNTER → 2021-11-10 07:44 | Outpatient (BNVA) | payer MEDICARE, OTHER, SELFPAY | PROVIDERS: PCP Family Medicine; Visit Provider Urology | DX: R35.1 Nocturia (principal); R97.20 Elevated prostate specific antigen [PSA] | CPT/HCPCS: 99213 ==

== ENCOUNTER 2021-11-10 17:47 | Outpatient (REF) | payer MEDICARE, OTHER, SELFPAY ==
[2021-11-13 10:49] LABS: PSA, Diagnostic 11.7 ng/mL (0.0-6.5)
== END 2021-11-10 17:48 | disposition home or self-care (01) ==
LOC: LBN 17:47
PROVIDERS: PCP Family Medicine; Visit Provider Urology
DX: R97.20 Elevated prostate specific antigen [PSA] (principal)
CPT/HCPCS: 84153

== ENCOUNTER → 2021-12-07 09:22 | Outpatient (BNVA) | payer MEDICARE, OTHER, SELFPAY | PROVIDERS: PCP Family Medicine; Visit Provider Student in an Organized Health Care Education/Training Program | DX: Z96.652 Presence of left artificial knee joint (principal) ==

== ENCOUNTER → 2021-12-26 07:57 | Outpatient (BNVA) | payer MEDICARE, OTHER, SELFPAY | PROVIDERS: PCP Family Medicine; Visit Provider Urology | DX: R35.1 Nocturia (principal); R97.20 Elevated prostate specific antigen [PSA] | CPT/HCPCS: 99214 ==

== ENCOUNTER 2022-01-17 11:33 | Outpatient (CLI) | payer MEDICARE, OTHER, SELFPAY ==
--- NOTE | 2022-01-17 09:15 | DI.RAD_ITS ---
Exam(s) XR SHOULDER LT COMPLETE 2+V EXAM: XR SHOULDER LT COMPLETE 2+V CLINICAL HISTORY: left shoulder pain. TECHNIQUE: 2D digital imaging was performed. Two views. COMPARISON: CR XR SHOULDER LT COMPLETE 2+V from 01/16/2021 MR MR UPPER JOINT LT WO from 02/01/2021 FINDINGS: BONES: Old healed fracture deformity distal clavicle. Mild spurring at the tip of the acromion. Mil d spurring at the greater and lesser tuberosities and margin of the glenoid. No acute fracture is pr esent. No bony destructive lesion is seen. JOINTS: No dislocation present. Glenohumeral joint space is well maintained. SOFT TISSUE: Normal. IMPRESSION: Old distal clavicle fracture. Mild degenerative changes. DATA REPOSITORY: RADIATION DOSE DELIVERED:
--- NOTE | 2022-01-17 09:30 | DI.RAD_ITS ---
Exam(s) XR SHOULDER RT COMPLETE 2+V EXAM: XR SHOULDER RT COMPLETE 2+V CLINICAL HISTORY: right shoulder pain. TECHNIQUE: 2D digital imaging was performed. Two views. COMPARISON: CR RIGHT SHOULDER COMPLETE from 03/11/2017 FINDINGS: BONES: No acute fracture is present. No bony destructive lesion is seen. JOINTS: No dislocation present. Prominent spurring the AC joint, not optimally profiled. Findings a ppear more severe when compared with the previous exam. Glenohumeral joint space is well maintained. There is spurring at the greater and lesser tuberosities. SOFT TISSUE: Normal. IMPRESSION: Severe degenerative changes of the AC joint. DATA REPOSITORY: RADIATION DOSE DELIVERED:
== END 2022-01-17 11:34 | disposition home or self-care (01) ==
LOC: DIORS 11:33
PROVIDERS: PCP Family Medicine; Referring Provider Family Medicine; Visit Provider Student in an Organized Health Care Education/Training Program
DX: M12.812 Other specific arthropathies, not elsewhere classified, left shoulder (principal); M75.102 Unspecified rotator cuff tear or rupture of left shoulder, not specified as traumatic; M12.811 Other specific arthropathies, not elsewhere classified, right shoulder
CPT/HCPCS: 99214; 73030

== ENCOUNTER → 2022-03-02 07:57 | Outpatient (BNVA) | payer MEDICARE, OTHER, SELFPAY | PROVIDERS: PCP Family Medicine; Referring Provider Family Medicine; Visit Provider Urology | DX: R35.1 Nocturia (principal); R39.12 Poor urinary stream; R97.20 Elevated prostate specific antigen [PSA] | CPT/HCPCS: 51798; 99214 ==

== ENCOUNTER → 2022-05-15 15:32 | Outpatient (BNVA) | payer MEDICARE, OTHER, SELFPAY | PROVIDERS: PCP Family Medicine; Referring Provider Family Medicine; Visit Provider Urology | DX: N40.0 Benign prostatic hyperplasia without lower urinary tract symptoms (principal); R35.0 Frequency of micturition; R39.15 Urgency of urination; R35.1 Nocturia; R97.20 Elevated prostate specific antigen [PSA]; Z87.898 Personal history of other specified conditions | CPT/HCPCS: 36415; 99214 ==

== ENCOUNTER 2022-05-15 20:21 | Outpatient (REF) | payer MEDICARE, OTHER, SELFPAY ==
[2022-05-16 20:47] LABS: PSA, Diagnostic 12.9 ng/mL (<=6.5)
== END 2022-05-15 20:22 | disposition home or self-care (01) ==
LOC: LBN 20:21
PROVIDERS: PCP Family Medicine; Visit Provider Urology
DX: R97.20 Elevated prostate specific antigen [PSA] (principal)
CPT/HCPCS: 84153

== ENCOUNTER → 2022-05-17 00:22 | Outpatient (CLI) | payer MEDICARE, OTHER, SELFPAY ==
--- NOTE | 2022-05-17 13:20 | DI.CT_ITS ---
Exam(s) CT UPPER EXTREMITY LT WO EXAM: CT UPPER EXTREMITY LT WO CLINICAL HISTORY: Surgery planning,ROTATOR CUFF ARTHROPATHY,M12.812,M75.102 TECHNIQUE: Imaging Protocol: Axial computed tomography images with coronal and sagittal reformatted images were created and reviewed. CONTRAST MATERIAL: None COMPARISON: CR XR SHOULDER LT COMPLETE 2+V from 01/17/2022 CR XR SHOULDER RT COMPLETE 2+V from 01/17/2022 FINDINGS: No evidence of fracture. There is superior subluxation of the humeral head in the glenoid fossa with almost complete eliminati on of the subacromial space, these findings consistent with chronic full-thickness rotator cuff patho logy/tear. There are advanced osteoarthritic degenerative changes with narrowing of the glenohumeral joint space and degenerative subarticular cysts on both sides of the joint. The most prominent degenerative sub articular cysts in the humeral head are actually on the lateral aspect of the humeral head subjacent to the infraspinatus insertional aspect on the posterior greater tuberosity and posterolateral aspect of humeral head. Multiple small degenerative cysts are also seen at the subscapularis insertional a spect on the lesser tuberosity as well as within the osseous glenoid. There is no goddard-type osteoph yte on the inferior articular surface of the humeral head. There is mild-moderate degenerative raymond e in the AC joint . IMPRESSION: 1. Moderate degenerative changes in the glenohumeral joint. 2. Indirect evidence of chronic full-thickness tearing of the rotator cuff mechanism with upward subl uxation of the humeral head in the glenoid fossa and significant diminution of the subacromial space. 3. Confluent degenerative subarticular cysts in the lateral and posterolateral aspect of the humeral head. Smaller degenerative subarticular cysts in the lesser tuberosity as well as in the osseous gle noid. RADIATION DOSE DELIVERED: 712.39mGy.cm Total DLP DATA REPOSITORY: All CT scans at this facility are submitted to the National Radiology Data Registry (NRDR) Dose Index Registry (DIR) with the [employer] [place] [employer] ([employer]). RADIATION OPTIMIZATION: All CT scans at this facility use at least one of these dose optimization te chniques: automated exposure control; mA and/or kV adjustment per patient size (includes targeted exa ms where dose is matched to clinical indication); or iterative reconstruction.
== END ==
PROVIDERS: PCP Family Medicine; Visit Provider Student in an Organized Health Care Education/Training Program
DX: M19.012 Primary osteoarthritis, left shoulder (principal); M75.102 Unspecified rotator cuff tear or rupture of left shoulder, not specified as traumatic; S43.002A Unspecified subluxation of left shoulder joint, initial encounter; X58.XXXA Exposure to other specified factors, initial encounter
CPT/HCPCS: 73200

== ENCOUNTER → 2022-06-13 07:57 | Outpatient (BNVA) | payer MEDICARE, OTHER, SELFPAY | PROVIDERS: PCP Family Medicine; Referring Provider Family Medicine; Visit Provider Student in an Organized Health Care Education/Training Program | DX: M75.102 Unspecified rotator cuff tear or rupture of left shoulder, not specified as traumatic (principal); M12.812 Other specific arthropathies, not elsewhere classified, left shoulder | CPT/HCPCS: 99214 ==

== ENCOUNTER 2022-07-24 03:41 | Outpatient (CLI) | payer MEDICARE, OTHER, SELFPAY ==
[2022-07-24 09:17] LABS: Abs Immature Grans 0.01 10^3/uL (0.0-0.06); Absolute Basophil Count 0.01 10^3/uL (0.0-0.2); Absolute Eosinophil Count 0.24 10^3/uL (0.0-0.7); Absolute Lymphocyte Count 0.77 10^3/uL (1.2-3.4); Absolute Monocyte Count 0.25 10^3/uL (0.1-0.8); Absolute Neutrophil Count 2.58 10^3/uL (1.2-6.7); Basophils % 0.3; Eosinophils % 6.2; HCT 45.7 % (40.0-50.0); HGB 14.8 g/dL (13.5-17.5); Immature Grans % 0.3; Lymphocytes % 19.9; MCH 30.2 pg (27.0-33.0); MCHC 32.4 % (32.0-36.0); MCV 93 fL (80-95); Monocytes % 6.5; Neutrophils % 66.8; Platelet Count 200 10^3/uL (130-400); RDW-SD 44.3 fL; WBC 3.86 10^3/uL (4.4-10.8)
[2022-07-24 09:30] LABS: PTT Activated 26.3 sec (21.0-27.5); Prothrombin Time 9.8 sec (9.3-11.0)
[2022-07-24 09:51] LABS: ALT 16 U/L (16-63); AST 12 U/L (15-37); Albumin 3.7 g/dL (3.4-5.0); Alkaline Phosphatase 76 U/L (46-116); Anion Gap 5.2 mmol/L (3-11); BUN 18 mg/dL (7-18); Bilirubin, Total 0.7 mg/dL (0.2-1.0); CO2 28.8 mmol/L (21.0-32.0); CREATININE 0.7 mg/dL (0.70-1.30); Calcium 9.1 mg/dL (8.5-10.1); Chloride 105 mmol/L (98-107); Estimated GFR 93.73 (mL/min/1.73m2); Glucose 113 mg/dL (74-106); Potassium 4.1 mmol/L (3.5-5.1); Sodium 139 mmol/L (136-145); Total Protein 7.2 g/dL (6.4-8.2)
== END 2022-07-24 03:42 | disposition home or self-care (01) ==
LOC: LBO 03:41
PROVIDERS: PCP Family Medicine; Visit Provider Student in an Organized Health Care Education/Training Program
DX: M25.512 Pain in left shoulder (principal); M75.102 Unspecified rotator cuff tear or rupture of left shoulder, not specified as traumatic; M12.812 Other specific arthropathies, not elsewhere classified, left shoulder; L50.8 Other urticaria; K51.40 Inflammatory polyps of colon without complications; Z01.818 Encounter for other preprocedural examination; Z01.812 Encounter for preprocedural laboratory examination
CPT/HCPCS: 36415; 80053; 85025; 85610; 85730

== ENCOUNTER → 2022-09-11 08:12 | Outpatient (BNVA) | payer MEDICARE, OTHER, SELFPAY | PROVIDERS: PCP Family Medicine; Referring Provider Family Medicine; Visit Provider Student in an Organized Health Care Education/Training Program | DX: M75.102 Unspecified rotator cuff tear or rupture of left shoulder, not specified as traumatic (principal); M12.811 Other specific arthropathies, not elsewhere classified, right shoulder; M12.812 Other specific arthropathies, not elsewhere classified, left shoulder | CPT/HCPCS: 99214 ==

== ENCOUNTER 2022-09-21 08:49 | Outpatient (CLI) | payer MEDICARE, OTHER, SELFPAY ==
--- NOTE | 2022-09-21 08:15 | DI.RAD_ITS ---
Exam(s) XR KNEE LT 2V AP,LAT EXAM: XR KNEE LT 2V AP,LAT CLINICAL HISTORY: left knee f/u. TECHNIQUE: 2D digital imaging was performed. COMPARISON: CR XR KNEE LT 1V from 09/25/2021 FINDINGS: Two views: Stable position alignment of the components of the prosthesis. No fracture or loosening evident. Again noted is a thin long radiopaque foreign body in the posterior medial knee region. Unchanged in size and position. This measures 3 cm length by less than 1 millimeter diameter. IMPRESSION: DATA REPOSITORY: RADIATION DOSE DELIVERED:
== END 2022-09-21 08:50 | disposition home or self-care (01) ==
LOC: DIORS 08:50
PROVIDERS: PCP Family Medicine; Referring Provider Family Medicine; Visit Provider Student in an Organized Health Care Education/Training Program
DX: Z96.652 Presence of left artificial knee joint (principal)
CPT/HCPCS: 99213; 73560

== ENCOUNTER 2022-09-27 05:50 | Day surgery (SDC) | payer MEDICARE, SELFPAY ==
[2022-09-27] VITALS (17 sets, daily range): BP systolic 76–142; BP diastolic 53–92; PULSE 53–68; RESP 13–20; TEMP 36.2–36.7; O2SAT 94–99; BMI 24.7
--- NOTE | 2022-09-27 04:22 | W.ANESPRE ---
General Info Date of Service Date Performed: 09/27/22 Height: 5 ft 9.5 in Weight: 77 kg Body Mass Index (BMI): 24.7 Surgical Procedure: Operation Date: 09/27/22 07:40 Proposed Procedure Side Surgeon p Shoulder Reverse Total Arthroplasty, Bicep Tenodesis and any other indicated procedures Left Chinedu Baird MD Meds Allergies and Home Medications Allergies Allergy/AdvReac Type Severity Reaction Status Date / Time No Known Allergies Allergy Verified 09/21/22 08:59 Home Medication Medication Instructions Recorded vitamin B12 1,000 mcg-folic acid 1 tab sublingual DAILY 02/07/21 400 mcg sublingual tablet acetaminophen 500 mg capsule 1,000 mg PO Q8H PRN PRN #90 caps 09/12/21 Current Visit Medications: Current Medications Generic Name Dose Route Start Last Admin Trade Name Freq PRN Reason Stop Dose Admin Ringer's Solution 1,000 mls @ 30 mls/hr 09/27/22 06:00 IV 10/26/22 23:59 INFUSION XAVIER Cefazolin Sodium/Dextrose 2 gm in 50 mls @ 100 mls/hr 09/27/22 06:00 Ancef Duplex IVPB 10/26/22 23:59 PREOP XAVIER Tranexamic Acid 1,000 mg/ 60 mls @ 360 mls/hr 09/27/22 06:00 Sodium Chloride IVPB 09/27/22 18:00 PREOP XAVIER IV Miscellaneous Supplies 1 each 09/27/22 06:00 Iv Access IV 10/26/22 23:59 DIRECTED XAVIER Sodium Chloride 0 ml 09/27/22 06:00 Normal Saline Flush 10 Ml Syr IV 10/26/22 23:59 PRN PRN Sodium Chloride 0 ml 09/27/22 06:00 Normal Saline 10 Ml Vial IJ 10/26/22 23:59 DIRECTED PRN Sterile Water 0 ml 09/27/22 06:00 Water,Injection,Sterile 10 Ml Vial IJ 10/26/22 23:59 DIRECTED PRN PFSH Active Problems Active Problems: Problem Status Onset Code BPH without urinary obstruction N40.0 Calcaneal spur, right 10/15/16 M77.31 Degeneration of intervertebral disc Elevated PSA 09/23/17 R97.20 Gastroesophageal reflux disease 06/16/13 K21.9 Hemorrhoids K64.9 Hives 11/05/15 L50.9 Hyperlipidemia 06/16/13 E78.5 Impaired fasting glucose 10/20/15 R73.01 Inflammatory polyps of colon 01/06/16 K51.40 Obstructive sleep apnea syndrome G47.33 Primary osteoarthritis of left knee 10/15/16 M17.12 Sciatica of right side 02/05/17 M54.31 Enteritis due to Giardia species 08/11/15 A07.1 Clostridium difficile diarrhea 08/11/15 A04.72 Closed fracture of clavicle S42.009A Bilateral carpal tunnel syndrome G56.03 Advanced directives, counseling/discussion Z71.89 Encounter for Federal [employer] Administration (FAA) examination Z02.9 Onychomycosis B35.1 Anemia D64.9 Leukopenia D72.819 Fe deficiency anemia D50.9 B12 deficiency anemia D51.9 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 states he is un aware of this. UPPP (Uvulopalatopharyngoplasty) Tobacco Smoking/Tobacco Use Status: Never Passive smoking exposure: No Alcohol Alcohol Intake: current Alcohol intake frequency: a few times a week Alcohol type: wine Substance Use Substance use: Never Substance use type: does not use Vital Signs and Lab Results Vital Signs Most Recent Vital Signs in EMR: Temp Pulse Resp BP Pulse Ox 36.6 C 66 18 132/72 98 09/27/22 06:08 09/27/22 06:08 09/27/22 06:08 09/27/22 06:08 09/27/22 06:08 Lab Results Blood Type / Crossmatch: No Data to Display Complete Blood Count: No Data to Display Complete Metabolic Panel: No Data to Display Liver Function Panel: No Data to Display Coagulation Panel: No Data to Display Cardiac Panel: No Data to Display Arterial Blood Gas: No Data to Display Venous Blood Gas: No Data to Display Pancreas Panel: No Data to Display Thyroid Panel: No Data to Display Infectious Disease: No Data to Display Blood Cultures: No Data to Display Toxicology Panel: No Data to Display Imaging and Studies Imaging and Studies Study information below may be from another EMR and interpreted by another provider. Please see original notes in EMR for more complete details. EKG Summary: 08/2021: Sinus rhythm.IVCD, consider RBBB. Anesthesia Assessment and Plan Anesthesia History Personal History: No History of Anesthesia Complications Family History: No Family History of Anesthesia Complications Exercise Tolerance Exercise Tolerance: Metabolic Equivalents>4 Cardiac & Pulmonary Exam Cardiac Exam: Normal S1/S2 Heart Sounds Pulmonary Exam: Clear Bilateral Breath Sounds Implantable Cardiac Device Does patient have a Pacemaker or an ICD?: No Airway Exam Known Difficult Airway: No Mallampati Class: 1 Mouth Opening: Normal (> 3cm) Thyromental Distance: Greater than 3 cm Neck Range of Motion: Full ROM Neck Circumference: Normal Teeth Condition: Normal Dentition ASA Classification ASA Score: ASA 2 Emergency Case?: No NPO Status NPO Status: NPO Clears >2 hours, Solids >8 hours Anesthesia Plan Resuscitation Status: Full Code Anesthesia Technique: General Anesthesia Airway Planned: Endotracheal Tube Pain Management: Surgeon and patient request nerve block Monitors Used: Standard Monitors and Arterial Line (+/-) Preoperative Comments:: 81 yo male for reverse total shoulder. Sig PMHx: anemia, GERD (well controlled), BPH, DJD lumbar spine, JUAN, sciatica, never smoker, occ EtOH. Previous Anes: - 2011 temporal artery biopsy with igel 4 - Last anes here was spinal for TKA. intraop was unremarkable, however he states there was an issue with the nerve block. Nerve block note states Significant movement/discomfort with skin local and block needle advancement. On insertion of block needle stated that he had a parasthesia, tip of needle was identified within the vastus medialis. Slow advancement was made to the adductor canal. Injection was performed, no parasthesia was noted, but he did complain of pressure. He then stated that he felt like he was going to pass out, which he did. The block was complete at this time, his pulse was noted at ~20, a BP was taken and his MAP was ~80 mmHg. Over 20 seconds or so his HR came up to 30-40, no noted heart block, and MAP of 80, with profuse diaphoresis. after about 1 minute he was awake and conversant stating he felt better, just hot. No blood was noted during aspiration and good local anesthesia spread was noted next to the nerve and muscles - it is believe to be a vasovagal event related and not a LAST event.
[2022-09-27] MEDS: Lactated Ringers 1,000 ML 30 ML IV (07:01)
--- NOTE | 2022-09-27 07:02 | W.ANESNERVE ---
Nerve Block Single Injection Procedure Date and Time Date Performed: 09/27/22 Procedure Start: 07:15 Location Where Procedure Performed Procedure Location: Day Surgery Unit Reason Performed: Postoperative Analgesia Requesting Provider: Chinedu Baird Timeout Performed Timeout Performed: Yes Monitoring Used ECG, Blood Pressure and SpO2 Sterility Sterility: Hand Hygiene, Surgical Cap, Surgical Mask, Sterile Gloves and Chlorhexidine Sedation Given During Procedure Sedation Given (Indicate Dose Given): Versed IV Dose:: 0.5 mg and Ketamine IV Dose:: 5 mg Patient Mental Status Patient Mental Status: Awake Nerve Block 1st Nerve Block: Laterality: Left Block Type: Interscalene Needle / Catheter Used: 100mm SonoPlex II Local Anesthetic Bolus (Indicate Dose Given): Lidocaine used for local infiltration of skin, Bupivacaine 0.5% Dose:: 15 mL and Exparel Dose:: 10 mL Additives (Indicate Dose Given): None Ultrasound: Sterile probe cover and gel used Ultrasound Image Saved?: Yes Nerve Stimulator: Supplement to Ultrasound use and No twitch or parasthesia noted < 0.5 mA Paresthesia: None Procedure Tolerated: No Complications Procedure Outcome: Successful Performed By: Devan Torres
[2022-09-27] MEDS: ceFAZolin 2 GM/50 ML BAG IVPB (07:37)
[2022-09-27] MEDS: Norepinephrine in D5W 8 MG/250 ML BAG 7.219 MG IV (07:40)
--- NOTE | 2022-09-27 08:00 | ROE_ITS ---
Date of service: 09/27/22 Time of Service: 07:30 Operative Note Operative Note DATE OF PROCEDURE: 09/27/22 PRE-OP DIAGNOSIS: Left: 1. Rotator cuff arthropathy 2. Long head of the biceps tendinopathy POST-OP DIAGNOSIS: same PROCEDURE: Left: 1. Reverse total shoulder arthroplasty, CPT # 85699 2. Open biceps tenodesis, CPT # 76985 The design assistant was medically required as this procedure involves retraction, protection of neurovascular structures, and manipulation of multiple instruments and implants at the same time, which cannot be done without a skilled design assistant. SURGEON: Chinedu Baird MATERIAL HANDLING TECHNICIAN: Linette Savage ANESTHESIA TYPE: Local By Surgeon, General LMA/ETT and Primary Nerve Block Refer to Anesthesia Record ESTIMATED BLOOD LOSS: 75 COMPLICATIONS: None Patient was transported to: PACU Patient's condition: stable Implants: [employer] modular glenoid system baseplate 24 mm +2 lateralized [employer] modular glenoid system central post 20 mm [employer] modular glenoid system peripheral locking screws 32 mm inferior, 32 mm superior, 16 mm posterior, 16 mm anterior [employer] modular glenoid system glenosphere 42 +4 mm lateralized [employer] humeral stem 135 degrees size 9 [employer] suture cup size 42 posterior offset [employer] spacer size 42 +6 mm [employer] humeral insert size 42 +3 mm constrained Indications: Please see complete medical record for details. Findings: Significant long head biceps tenosynovitis and high-grade partial tearing at the joint, largely chronically deficient anterior, superior, and posterior rotator cuff, and anterior-superior escape Procedure Description: In the operating room, general anesthesia was induced. The patient was positioned beachchair on the operating room table. All bony prominences were well-padded. Preoperative antibiotics were administered. The shoulder was prepped and draped in the usual sterile fashion for shoulder arthroplasty. The correct patient, procedure, and side of the procedure were all verified prior to incision. The deltopectoral approach was taken to the anterior shoulder. Care was taken to bluntly dissect the interval between the deltoid and pectoralis major muscles and to identify the cephalic vein within its fat stripe. The the vein was mobilized laterally. Subdeltoid space and conjoined tendon were freed of adhesions. The long head of the biceps tendon was identified just lateral to the lesser tuberosity. The uppermost margin of the pectoralis major tendon was released from the proximal humerus. The long head of the biceps tendon was tenodesed in situ using SutureTape in a lairdq-hp-wdqbi fashion securing it superior margin the pectoralis major tendon. The biceps tendon was amputated and followed proximally to identify the rotator interval. There was significant scar tissue anteriorly and superiorly, but essentially completely devoid deficient rotator cuff. Bursitis and adhesions were removed exposing the glenohumeral joint. The greater tuberosity was debrided of remnant cuff and fibrinous material. Appropriate coagulation was achieved especially interiorly. The anatomic neck was cut using an oscillating saw with the humeral head bone brought back table in case there was a need for future bone grafting. The proximal humeral protection plate was used to provisionally confirm suture cup and glenosphere size. Attention was then turned to the glenoid and retractors were placed and a circumferential release performed using the long head of the biceps remnant to remove soft tissue about the glenoid rim. Care was taken inferiorly to work on bone only between 5 and 7:00 o'clock and bluntly elevate tissues inferiorly. The VIP guide was placed on the glenoid and used to confirm placement and trajectory of the central guidepin. The guidepin was inserted and advanced just through the far cortex ensuring adequate central fixation length. Depth gauge was used to confirm length. The glenosphere sizer was used to confirm positioning and glenosphere size. The backside of the baseplate reamer and underside of glenosphere reamers were then used. There was appropriate eccentric reaming inferiorly and anteriorly. The central post drill was used. The baseplate was impacted and fully compressed onto the glenoid surface. The locking guide was then used to drill and place appropriately lengthed inferior, superior, anterior, and posterior screws. The ymbc-brk-zkazwjwra reamer was used to confirm adequate peripheral reaming. The glenosphere was applied with the carbon sequestration plant engineer and then impacted to engage the Hernandez taper. It was then locked with appropriate countersinking of the setscrew. The glenosphere was inspected and found to have good fit, appropriate positioning, and no soft tissue or bony impingement. Attention was then turned back to the proximal humerus, which was delivered from the wound and maintained in external rotation. Reamers were started appropriately posterior to the bicipital groove taking care to maintain in line approach with the humeral canal. Sequential reaming was done from size 5 up to size 7. Next, the broaches were sequentially used to open the proximal humerus starting with a size 5 and going up to size 9 and sunk to the appropriate depth while maintaining approximately 30 degrees retroversion. There was good metaphyseal fit and rotational control of the proximal humerus with this size. The posterior offset guide was used to ream for the suture cup. The humeral trial cup was connected. Trialing was commenced with +3 mm liner. The shoulder was reduced and taken through range of motion. Trial components were built up to +6mm spacer and +3mm liner to achieve good stability and appropriate tension on the deltoid and conjoined tension. The trial components were removed from the proximal humerus. The wound was copiously irrigated with normal saline. The the proximal humeral stem and suture cup were assembled and brought over the proximal humerus. A small amount of vancomycin powder was distributed in the proximal humerus. The humeral component and suture cup were impacted into place. The trial spacer and liner were added, and the shoulder was reduced and range of motion, stability, and tension confirmed to be most appropriate with a constrained liner given the lack of soft tissue and rotator cuff stability and chronic superior migration. The final spacer and liner were then connected, and range of motion, stability, and tension confirmed. The shoulder was copiously irrigated with Betadine and normal saline. Vancomycin powder was distributed deeply about the shoulder and through subcutaneous tissues. The deltopectoral interval was well approximated. Subcutaneous tissue was irrigated then closed using 2-0 Monocryl in a buried interrupted fashion. Skin was closed using 3-0 Monocryl in a buried subcuticular fashion. Skin glue was applied to the incision. A silver impr egnated bandage was placed over the incision. The extremity was placed into a shoulder immobilizer. The patient awoke from anesthesia without complication and was taken to the recovery room in stable condition.
[2022-09-27] MEDS: Bupivacaine 0.25% Pres-Free W/EPI 30 ML VIAL (08:14)
--- NOTE | 2022-09-27 10:00 | DI.RAD_ITS ---
Exam(s) XR SHOULDER LT COMPLETE 2+V EXAM: XR SHOULDER LT COMPLETE 2+V CLINICAL HISTORY: Portable in PACU postop. TECHNIQUE: 2D digital imaging was performed. Three views. Portable COMPARISON: CT CT UPPER EXTREMITY LT WO from 05/17/2022 FINDINGS: The projections are somewhat limited due to upper right semi-erect technique. Patient is status post placement of a reverse shoulder prosthesis. The alignment appears satisfactory. DATA REPOSITORY: RADIATION DOSE DELIVERED:
--- NOTE | 2022-09-27 11:27 | W.ANESPOSTOP ---
Postoperative Evaluation Date, Time and Location Date Performed: 09/27/22 Time Performed: 11:28 Patient Location: PACU Vital Signs Most Recent Imported Vital Signs: Most Recent Vital Signs Temp Pulse Resp BP Pulse Ox 36.7 C 65 15 134/83 97 09/27/22 07:22 09/27/22 07:22 09/27/22 07:22 09/27/22 07:22 09/27/22 07:22 Pain Score Most Recent Pain Score: Most Recent Pain Score Pain Level 0 09/27/22 07:22 Assessment Mental Status: Awake (Alert & Oriented to Patient Baseline) Airway and Respiratory Function: Patent airway with normal (patient baseline) respiratory exam Cardiovascular Function: Hemodynamically Stable Hydration Status: Adequately Hydrated Nausea & Vomiting: No Nausea or Vomiting Pain: Pain is tolerable per patient Peripheral Nerve Block: Regional nerve block not resolved at time of post operative discharge
[2022-09-27] MEDS: ceFAZolin 1 GM/50 ML BAG IVPB (15:13)
--- NOTE | 2022-09-27 15:27 | PDOC.DSDIS_ITS ---
Date of service: 09/27/22 Time of Service: 17:00 Discharge Plan Disposition Patient Disposition: Home Condition: Stable Discharge Details Admit Date/Time: 09/27/22 05:50 Admit Provider: Chinedu Baird Attending Provider: Chinedu Baird Primary Care Provider: Lobo Mc Home Meds and New Rx's Prescriptions: New naproxen 250 mg tablet 250 - 500 mg PO BID PRNQty: 40 0RF Rx Instructions: take with a meal aspirin 81 mg tablet,delayed release (DR/EC) 81 mg PO DAILY 7 Days Qty: 7 0RF oxycodone 5 mg tablet 5 - 10 mg PO Q4H MDD 30 mg PRN (Reason: moderate to severe pain) Qty: 18 0RF Bio-K plus 50 billion cell capsule,delayed release(DR/EC) 1 cap PO DAILY 7 Days Qty: 7 0RF Continued vitamin Z82-oknwb acid 1,000-400 mcg Tablet, Sublingual 1 tab SUBLINGUAL DAILY acetaminophen 500 mg capsule 1,000 mg PO Q8H PRN PRNQty: 90 0RF Discharge Instructions Additional Instructions: Surgery: Left reverse total shoulder arthroplasty (constrained liner) with biceps tenodesis Activity: Do not lift anything heavier than a coffee. You should keep your arm at your side in a neutral position at all times except for gentle range of motion exercises, physical therapy, and essential activities. You should use the sling whenever you are out of the house. You may have to adjust the abduction pillow or remove it for comfort. At home it is best to remove the sling and rest the arm on a pillow at your side or support the operative side with your other hand. A physical therapy prescription will be sent electronically to start in about 3 weeks. Reverse TSA Protocol: Postoperative Weeks 0-6 ?Immobilization: Sling may be removed for therapeutic exercises, resting in bed or chair, and bathing ?Motion exercises: Pendulum exercises, elbow range- of-motion exercises, wrist wddhj-vm-jcugmu exercises, and senior technical program manager strengthening ?Restrictions: No active internal rotation or backwards extension Postoperative Weeks 6-12 ?Immobilization: Sling discontinued ?Motion exercises: Shoulder passive range of motion, advancing to active- assisted range of motion, and finally active range of motion with a goal of forward flexion to 90? and external rotation of 20? ?Strengthening exercises: Light, resisted forward flexion, external rotation, and abduction limited to isometric exercises and therapy bands with concentric motions only. Continue senior technical program manager strengthening ?Restrictions: No resisted internal rotation or backwards extension. No scapular retraction exercises with therapy bands Postoperative Months 3-12 ?Motion exercises: Increase auzqh-ez-rseygc exercises to achieve full motion, with passive stretching at end ranges ?Strengthening: Begin resisted, internal rotation and backwards extension initially with isometric exercises advancing to light therapy bands and then weights. Advance other shoulder strengthening exercises to include the rotator cuff, deltoid, and scapular stabilizers. Advance to functional strengthening, including plyometric exercises and core strengthening. Prescriptions: Aspirin 81 mg take 1 daily to prevent a blood clot for 2 weeks Naproxen 250 mg take 1-2 every 12 hours with a meal as needed for moderate pain Oxycodone 5 mg take 1-2 every 4-6 hours as needed for severe pain Probiotic take 1 daily to reduce risk of c diff for 7 days You may use hlog-zae-eioeqzn Tylenol (acetaminophen) as needed for mild pain. These pain medications may be taken all at once or in different combinations as needed. Also, recommend Colace (docusate) as a stool softener as surgery and pain medicine cause constipation. You may try foqs-jgf-afraxfu diphenhydramine (Benadryl) 25-50 mg nightly as a sleep aid Dressings: Leave dressing in place until follow-up. Keep clean and dry at all times. No showers please. Follow-up: 10-[address] Baird October 10, 2022 @ 10:00 am You may take off the leg compression stockings this evening at home. You may also leave them on a few days longer if you have a history of leg swelling or edema. Please call the office during business hours with any questions or concerns. Let us know right away if you develop any redness, drainage, fevers, chest pain, or trouble breathing. Do not drink alcohol or drive for at least 24 hours after anesthesia. Stand Alone Forms: Anesthesia Discharge Inst., Nerve Block InstructionsGualberto (DSU) Activity:: RTSA protocl Equipment/Supplies:: Sling Diet:: As Tolerated Discharge Orders Discharge Orders: Discharge Order (Routine); Ordered 09/27/22 Ordered By: Chinedu Baird DS: Diagnosis Discharge Diagnosis (1) Rotator cuff tear arthropathy of left shoulder: Status: Acute
== END 2022-09-27 15:45 | disposition home or self-care (01) ==
LOC: PDS 13:19 → DSU 15:52
PROVIDERS: PCP Family Medicine; Visit Provider Student in an Organized Health Care Education/Training Program
PROC: (CPT 23472; principal; 2022-09-27 07:30)
DX: M75.102 Unspecified rotator cuff tear or rupture of left shoulder, not specified as traumatic (principal); M75.22 Bicipital tendinitis, left shoulder
CPT/HCPCS: 23472; C1713; 76942; 73030; C1781; J0131; J0690; J1100; J2250; J2405; J2704

== ENCOUNTER 2022-10-10 10:10 | Outpatient (CLI) | payer MEDICARE, OTHER, SELFPAY ==
--- NOTE | 2022-10-10 10:00 | DI.RAD_ITS ---
Exam(s) XR SHOULDER LT COMPLETE 2+V EXAM: XR SHOULDER LT COMPLETE 2+V INDICATION: rotator cuff tear arthropathy of left shoulder f/u. COMPARISON: CR XR SHOULDER LT COMPLETE 2+V from 09/27/2022 TECHNIQUE: 2D digital imaging was performed. Two views. FINDINGS: There has been no change in the alignment of the reverse shoulder prosthesis. There are no abnormal bony lucencies. DATA REPOSITORY: RADIATION DOSE DELIVERED:
== END 2022-10-10 10:11 | disposition home or self-care (01) ==
LOC: DIORS 10:10
PROVIDERS: PCP Family Medicine; Referring Provider Family Medicine; Visit Provider Student in an Organized Health Care Education/Training Program
DX: Z47.89 Encounter for other orthopedic aftercare; Z96.612 Presence of left artificial shoulder joint
CPT/HCPCS: 73030

== ENCOUNTER → 2022-11-16 08:21 | Outpatient (BNVA) | payer MEDICARE, SELFPAY | PROVIDERS: PCP Family Medicine; Visit Provider Urology ==

== ENCOUNTER 2022-11-16 09:01 | Outpatient (CLI) | payer MEDICARE, SELFPAY | END 2022-11-16 09:02 | disposition home or self-care (01) | LOC: LBO 09:02 | PROVIDERS: PCP Family Medicine; Visit Provider Urology | DX: R97.20 Elevated prostate specific antigen [PSA] (principal) | CPT/HCPCS: 99214 ==

== ENCOUNTER 2022-11-16 09:41 | Outpatient (REF) | payer MEDICARE, SELFPAY ==
[2022-11-16 21:11] LABS: PSA, Diagnostic 11.9 ng/mL (<=6.5)
== END 2022-11-16 09:42 | disposition home or self-care (01) ==
LOC: LBN 09:41
PROVIDERS: PCP Family Medicine; Visit Provider Urology
DX: R97.20 Elevated prostate specific antigen [PSA] (principal)
CPT/HCPCS: 84153

== ENCOUNTER 2022-11-28 09:38 | Outpatient (CLI) | payer MEDICARE, SELFPAY ==
--- NOTE | 2022-11-28 09:15 | DI.RAD_ITS ---
Exam(s) XR SHOULDER LT COMPLETE 2+V EXAM: XR SHOULDER LT COMPLETE 2+V CLINICAL HISTORY: left shoulder f/u. TECHNIQUE: 2D digital imaging was performed. Two images were obtained. AP and Y views were obtained . COMPARISON: CR XR SHOULDER LT COMPLETE 2+V from 10/10/2022 FINDINGS: BONES: There are stable post operative changes present. No fracture or dislocation. JOINTS: The orthopedic hardware is in good position. No evidence of hardware loosening. There are d egenerative changes at the acromioclavicular joint. SOFT TISSUE: Normal. IMPRESSION: Stable postoperative changes. DATA REPOSITORY: RADIATION DOSE DELIVERED:
== END 2022-11-28 09:39 | disposition home or self-care (01) ==
LOC: DIORS 09:38
PROVIDERS: PCP Family Medicine; Referring Provider Family Medicine; Visit Provider Student in an Organized Health Care Education/Training Program
DX: M12.811 Other specific arthropathies, not elsewhere classified, right shoulder; M12.812 Other specific arthropathies, not elsewhere classified, left shoulder; Z47.89 Encounter for other orthopedic aftercare
CPT/HCPCS: 73030

== ENCOUNTER 2023-01-29 10:06 | Outpatient (CLI) | payer MEDICARE, SELFPAY ==
--- NOTE | 2023-01-29 09:40 | DI.RAD_ITS ---
Exam(s) XR SHOULDER LT COMPLETE 2+V EXAM: XR SHOULDER LT COMPLETE 2+V CLINICAL HISTORY: LEFT SHOULDER F/U. TECHNIQUE: 2D digital imaging was performed. Two images were obtained. AP and Y views were obtained . COMPARISON: CR XR SHOULDER LT COMPLETE 2+V from 11/28/2022 FINDINGS: BONES: There are stable post operative changes present. No fracture or dislocation. JOINTS: The orthopedic hardware is in good position. No evidence of hardware loosening. Mild degene rative changes are seen at the acromioclavicular joint. SOFT TISSUE: Normal. IMPRESSION: Stable postoperative changes. DATA REPOSITORY: RADIATION DOSE DELIVERED:
== END 2023-01-29 10:07 | disposition home or self-care (01) ==
LOC: DIORS 10:06
PROVIDERS: PCP Family Medicine; Referring Provider Family Medicine; Visit Provider Student in an Organized Health Care Education/Training Program
DX: M75.101 Unspecified rotator cuff tear or rupture of right shoulder, not specified as traumatic (principal); Z96.612 Presence of left artificial shoulder joint; Z47.1 Aftercare following joint replacement surgery; M12.811 Other specific arthropathies, not elsewhere classified, right shoulder
CPT/HCPCS: 99213; 73030

== ENCOUNTER 2023-05-10 01:57 | Outpatient (CLI) | payer MEDICARE, SELFPAY ==
[2023-05-13 08:22] LABS: PSA, Diagnostic 11.2 ng/mL (<=6.5)
== END 2023-05-10 01:58 | disposition home or self-care (01) ==
LOC: LBO 01:58
PROVIDERS: PCP Family Medicine; Visit Provider Urology
DX: R97.20 Elevated prostate specific antigen [PSA] (principal)
CPT/HCPCS: 36415; 84153

== ENCOUNTER → 2023-05-17 08:25 | Outpatient (BNVA) | payer MEDICARE, SELFPAY | PROVIDERS: PCP Family Medicine; Visit Provider Urology | DX: R97.20 Elevated prostate specific antigen [PSA] (principal) | CPT/HCPCS: 99213 ==

== ENCOUNTER 2023-07-09 10:24 | Outpatient (CLI) | payer MEDICARE, SELFPAY ==
--- NOTE | 2023-07-09 10:03 | DI.RAD_ITS ---
Exam(s) XR SHOULDER LT COMPLETE 2+V EXAM: XR SHOULDER LT COMPLETE 2+V CLINICAL HISTORY: RTSA follow up. TECHNIQUE: 2D digital imaging was performed. Three views. COMPARISON: CR XR SHOULDER LT COMPLETE 2+V from 01/29/2023 FINDINGS: There has been no change in the alignment of the reverse shoulder prosthesis. There are no surroundi ng suspicious bony lucencies. DATA REPOSITORY: RADIATION DOSE DELIVERED:
== END 2023-07-09 10:25 | disposition home or self-care (01) ==
LOC: DIORS 10:25
PROVIDERS: PCP Family Medicine; Referring Provider Family Medicine; Visit Provider Student in an Organized Health Care Education/Training Program
DX: M12.812 Other specific arthropathies, not elsewhere classified, left shoulder (principal); M75.102 Unspecified rotator cuff tear or rupture of left shoulder, not specified as traumatic; M75.101 Unspecified rotator cuff tear or rupture of right shoulder, not specified as traumatic; M12.811 Other specific arthropathies, not elsewhere classified, right shoulder; Z96.612 Presence of left artificial shoulder joint
CPT/HCPCS: 99213; 73030

== ENCOUNTER 2023-09-20 09:20 | Outpatient (CLI) | payer MEDICARE, SELFPAY ==
--- NOTE | 2023-09-20 08:45 | DI.RAD_ITS ---
Exam(s) XR KNEE LT 2V AP,LAT EXAM: XR KNEE LT 2V AP,LAT CLINICAL HISTORY: ANNUAL F/U L TKA. TECHNIQUE: 2D digital imaging was performed. Two views. COMPARISON: CR XR KNEE LT 2V AP,LAT from 09/21/2022 FINDINGS: BONES: No acute fracture is present. No bony destructive lesion is seen. JOINTS: Stable appearance of total knee prosthesis. The knee is normally aligned. A joint effusion i s seen. SOFT TISSUE: Mild anterior swelling. Linear opacity again noted the posteromedial soft tissues. IMPRESSION: Stable appearance of total knee prosthesis. DATA REPOSITORY: RADIATION DOSE DELIVERED:
== END 2023-09-20 09:21 | disposition home or self-care (01) ==
LOC: DIORS 09:20
PROVIDERS: PCP Family Medicine; Referring Provider Family Medicine; Visit Provider Student in an Organized Health Care Education/Training Program
DX: Z96.652 Presence of left artificial knee joint (principal); Z47.1 Aftercare following joint replacement surgery
CPT/HCPCS: 99213; 73560

== ENCOUNTER 2023-11-18 15:16 | Outpatient (CLI) | payer MEDICARE, SELFPAY ==
[2023-11-18 13:22] LABS: TSH (W/Ref FT4) 1.47 uIU/mL (0.36-3.74); Vitamin B12 418 pg/mL (193-986)
[2023-11-18 18:19] LABS: PSA, Diagnostic 14.1 ng/mL (<=6.5)
[2023-11-19 10:42] LABS: Syphilis Serology (RPR) Negative (Negative)
== END 2023-11-18 15:17 | disposition home or self-care (01) ==
LOC: LBO 15:20
PROVIDERS: PCP Family Medicine; Visit Provider Urology
DX: R97.20 Elevated prostate specific antigen [PSA] (principal); E03.9 Hypothyroidism, unspecified; R41.3 Other amnesia; E11.51 Type 2 diabetes mellitus with diabetic peripheral angiopathy without gangrene
CPT/HCPCS: 36415; 82607; 83036; 84153; 84443; 86592

== ENCOUNTER 2023-11-19 15:41 | Outpatient (REF) | payer MEDICARE, SELFPAY ==
--- NOTE | 2023-11-19 13:15 | LIPBX_PTH ---
PATIENT: Jed Carbajal LOC: [facility] U#:[id number] AGE/SX: 83/M ROOM: RE11/19/[address]: Bari Zhang MD : [id number] BED: DIS: 11/19/2023 SPEC #: [id number] RECD: 11/19/23 18:05 STATUS: KARLA REQ #: [id number] TREASURE: 11/19/23 13:[address]: Bari Zhang DEPT: Surgical Specimen RECD BY: Fadia Lei ENTERED: 11/19/23 18:06 SP TYPE: LIPBX OTHR DR: Lobo Mc MD Tissues: 1 - LIP BIOPSY/RESECTION Procedures: GROSS AND MICRO LEVEL 4 Comments: [id number]
== END 2023-11-19 15:42 | disposition home or self-care (01) ==
LOC: LBN 15:41
PROVIDERS: PCP Family Medicine; Visit Provider Otolaryngology
DX: Z47.1 Aftercare following joint replacement surgery (principal); Z96.652 Presence of left artificial knee joint
CPT/HCPCS: 88305

== ENCOUNTER → 2023-11-22 08:20 | Outpatient (BNVA) | payer MEDICARE, SELFPAY | PROVIDERS: PCP Family Medicine; Visit Provider Urology | DX: N40.1 Benign prostatic hyperplasia with lower urinary tract symptoms (principal); R35.1 Nocturia; R97.20 Elevated prostate specific antigen [PSA] | CPT/HCPCS: 99213 ==

== ENCOUNTER 2024-02-14 01:41 | Outpatient (CLI) | payer MEDICARE, SELFPAY ==
[2024-02-14 18:56] LABS: PSA, Diagnostic 13.3 ng/mL (<=6.5)
== END 2024-02-14 01:42 | disposition home or self-care (01) ==
LOC: LBO 01:42
PROVIDERS: PCP Family Medicine; Visit Provider Urology
DX: R97.20 Elevated prostate specific antigen [PSA] (principal)
CPT/HCPCS: 36415; 84153

== ENCOUNTER → 2024-02-21 07:46 | Outpatient (BNVA) | payer MEDICARE, SELFPAY | PROVIDERS: PCP Family Medicine; Referring Provider Family Medicine; Visit Provider Urology | DX: N40.1 Benign prostatic hyperplasia with lower urinary tract symptoms (principal); R35.0 Frequency of micturition; R97.20 Elevated prostate specific antigen [PSA] | CPT/HCPCS: 99214 ==

== ENCOUNTER 2024-05-05 14:18 | Outpatient (CLI) | payer MEDICARE, SELFPAY ==
--- NOTE | 2024-05-05 13:07 | DI.RAD_ITS ---
Exam(s) XR SHOULDER LT COMPLETE 2+V EXAM: XR SHOULDER LT COMPLETE 2+V CLINICAL HISTORY: F/U LEFT RTSA. TECHNIQUE: 2D digital imaging was performed. Three views. COMPARISON: CR XR SHOULDER LT COMPLETE 2+V from 07/09/2023 FINDINGS: BONES: Stable appearance of reverse shoulder prosthesis. No bony destructive lesion is seen. JOINTS: No dislocation present. Stable alignment of reverse shoulder prosthesis. Mild spurring at A C joint. SOFT TISSUE: Normal. IMPRESSION: Stable appearance of shoulder prosthesis. DATA REPOSITORY: RADIATION DOSE DELIVERED:
== END 2024-05-05 14:19 | disposition home or self-care (01) ==
LOC: DIORS 14:18
PROVIDERS: PCP Family Medicine; Referring Provider Family Medicine; Visit Provider Student in an Organized Health Care Education/Training Program
DX: M75.102 Unspecified rotator cuff tear or rupture of left shoulder, not specified as traumatic (principal); M12.812 Other specific arthropathies, not elsewhere classified, left shoulder; T84.028A Dislocation of other internal joint prosthesis, initial encounter; Z96.612 Presence of left artificial shoulder joint
CPT/HCPCS: 99213; 73030

== ENCOUNTER → 2024-05-08 00:13 | Outpatient (CLI) | payer MEDICARE, SELFPAY ==
--- NOTE | 2024-05-08 06:45 | DI.CT_ITS ---
Exam(s) CT UPPER EXTREMITY LT WO EXAM: CT UPPER EXTREMITY LT WO CLINICAL HISTORY: PAIN, SURGICAL PLANNING, RTC ARTHROPATHY LT SHOULDER, M75.102, M12.812. TECHNIQUE: Imaging Protocol: Axial computed tomography images with coronal and sagittal reformatted images were created and reviewed. COMPARISON: CT CT UPPER EXTREMITY LT WO from 05/17/2022 CR XR SHOULDER LT COMPLETE 2+V from 05/05/2024 FINDINGS: Bones: There is no evidence of fracture or dislocation. Total shoulder prosthesis again noted. This creates artifact. Alignment is satisfactory. No gross cellulitic or osteomyelitic changes are identified. No lytic or sclerotic lesions are identified. Joints: The AC joint shows minimal spurring. Soft Tissues: Is obscured by artifact. IMPRESSION: Shoulder prosthesis creates artifact. Alignment appears satisfactory. RADIATION DOSE DELIVERED: Total DLP Total DLP DATA REPOSITORY: All CT scans at this facility are submitted to the National Radiology Data Registry (NRDR) Dose Index Registry (DIR) with the [employer] (ACR). RADIATION OPTIMIZATION: All CT scans at this facility use at least one of these dose optimization te chniques: automated exposure control; mA and/or kV adjustment per patient size (includes targeted exa ms where dose is matched to clinical indication); or iterative reconstruction.
== END ==
PROVIDERS: PCP Family Medicine; Visit Provider Student in an Organized Health Care Education/Training Program
DX: M75.102 Unspecified rotator cuff tear or rupture of left shoulder, not specified as traumatic (principal); M12.812 Other specific arthropathies, not elsewhere classified, left shoulder
CPT/HCPCS: 73200

== ENCOUNTER → 2024-05-19 10:46 | Outpatient (BNVA) | payer MEDICARE, SELFPAY | PROVIDERS: PCP Family Medicine; Referring Provider Family Medicine; Visit Provider Student in an Organized Health Care Education/Training Program | DX: M75.102 Unspecified rotator cuff tear or rupture of left shoulder, not specified as traumatic (principal); M12.812 Other specific arthropathies, not elsewhere classified, left shoulder; M75.101 Unspecified rotator cuff tear or rupture of right shoulder, not specified as traumatic; M12.811 Other specific arthropathies, not elsewhere classified, right shoulder; T84.028A Dislocation of other internal joint prosthesis, initial encounter; Z96.612 Presence of left artificial shoulder joint | CPT/HCPCS: 99214 ==

== ENCOUNTER 2024-06-02 03:00 | Outpatient (CLI) | payer MEDICARE, SELFPAY ==
[2024-06-02 09:21] LABS: ESR 11 mm/hr (0-20)
[2024-06-02 09:22] LABS: Absolute Basophil Count 0.01 10^3/uL (0.0-0.2); Absolute Eosinophil Count 0.27 10^3/uL (0.0-0.7); Absolute Monocyte Count 0.26 10^3/uL (0.1-0.8); Absolute Neutrophil Count 1.81 10^3/uL (1.2-6.7); Basophils % 0.3 %; Eosinophils % 9.2 %; HGB 11.6 g/dL (13.5-17.5); Lymphocytes % 20.3 %; MCH 25.7 pg (27.0-33.0); MCHC 30.5 % (32.0-36.0); MCV 84 fL (80-95); MPV 9.2 fL (8.0-11.0); Monocytes % 8.8 %; Neutrophils % 61.4 %; Platelet Count 208 10^3/uL (130-400); RBC 4.51 10^6/uL (4.36-5.78); RDW 16.3 % (11.8-14.1); RDW-SD 49.8 fL; WBC 2.95 10^3/uL (4.4-10.8)
[2024-06-02 09:50] LABS: C-Reactive Protein 0.92 mg/dL (<or=0.5)
== END 2024-06-02 03:01 | disposition home or self-care (01) ==
LOC: LBO 03:00
PROVIDERS: PCP Family Medicine; Visit Provider Student in an Organized Health Care Education/Training Program
DX: T84.028A Dislocation of other internal joint prosthesis, initial encounter (principal); Z96.612 Presence of left artificial shoulder joint; M12.812 Other specific arthropathies, not elsewhere classified, left shoulder; M75.102 Unspecified rotator cuff tear or rupture of left shoulder, not specified as traumatic
CPT/HCPCS: 36415; 85652; 85025; 86140

== ENCOUNTER 2024-07-09 05:47 | Day surgery (SDC) | payer MEDICARE, SELFPAY ==
[2024-07-09] VITALS (37 sets, daily range): BP systolic 105–145; BP diastolic 41–89; PULSE 50–67; RESP 9–30; TEMP 36–36.6; O2SAT 93–100; BMI 25.5
--- NOTE | 2024-07-09 06:16 | W.ANESPRE ---
General Info Date of Service Date Performed: 07/09/24 Height: 5 ft 8 in Weight: 76.204 kg Body Mass Index (BMI): 25.5 Surgical Procedure: Operation Date: 07/09/24 07:40 Proposed Procedure Side Surgeon p Shoulder Revision Reverse Total Arthroplasty Left Chinedu Baird MD Meds Allergies and Home Medications Allergies Allergy/AdvReac Type Severity Reaction Status Date / Time oxycodone AdvReac Intermediate Agitation Verified 07/09/24 06:11 Home Medication ?Medication ?Instructions ?Recorded vitamin B12 1,000 mcg-folic acid 1 tab sublingual DAILY 02/07/21 400 mcg sublingual tablet L. acidophilus,casei,rhamnosus 50 1 cap PO DAILY 14 days #14 caps 07/09/24 billion cell capsule,delayed release (Bio-K plus) acetaminophen 500 mg tablet 500 mg PO ONCE 07/09/24 (Acetaminophen Extra Strength) amoxicillin 500 mg capsule 500 mg PO TID prevent infection 14 07/09/24 days #42 caps naproxen 250 mg tablet 250 mg PO BID PRN moderate pain 07/09/24 and swelling #40 tabs tramadol 50 mg tablet 50 mg PO Q8H PRN severe pain #9 07/09/24 tabs Current Visit Medications: Current Medications Generic Name Dose Route Start Last Admin Trade Name Freq PRN Reason Stop Dose Admin Ringer's Solution 1,000 mls @ 30 mls/hr 07/09/24 06:00 IV 08/07/24 23:59 INFUSION XAVIER Cefazolin Sodium/Dextrose 2 gm in 50 mls @ 100 mls/hr 07/09/24 06:00 Ancef Duplex IVPB 08/07/24 23:59 PREOP XAVIER Tranexamic Acid/Sodium Chloride 1,000 mg in 100 mls @ 600 mls/hr 07/09/24 06:00 IVPB 08/07/24 23:59 PREOP XAVIER IV Miscellaneous Supplies 1 each 07/09/24 06:00 Iv Access IV 08/07/24 23:59 DIRECTED XAVIER Sodium Chloride 0 ml 07/09/24 06:00 Normal Saline Flush 10 Ml Syr IV 08/07/24 23:59 PRN PRN Sodium Chloride 0 ml 07/09/24 06:00 Normal Saline 10 Ml Vial IJ 08/07/24 23:59 DIRECTED PRN Sterile Water 0 ml 07/09/24 06:00 Water,Injection,Sterile 10 Ml Vial IJ 08/07/24 23:59 DIRECTED PRN [facility] Active Problems Active Problems: Problem Status Onset Code 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 Acute T84.028A, Z96.612 Toe pain, right Acute M79.674 Actinic keratosis Acute L57.0 Oral lesion Acute K13.70 Memory loss Acute R41.3 Rotator cuff tear arthropathy of right shoulder Acute M75.101, M12.811 Rotator cuff tear arthropathy of left shoulder Acute M75.102, M12.812 BPH without urinary obstruction Acute N40.0 Calcaneal spur, right Chronic M77.31 Degeneration of intervertebral disc Chronic Elevated PSA Acute 09/23/17 R97.20 Gastroesophageal reflux disease Chronic 06/16/13 K21.9 Hemorrhoids Resolved K64.9 Hives Resolved 08/11/15 L50.9 Hyperlipidemia Chronic 06/16/13 E78.5 Impaired fasting glucose Chronic 10/20/15 R73.01 Inflammatory polyps of colon Chronic 01/06/16 K51.40 Obstructive sleep apnea syndrome Chronic G47.33 Primary osteoarthritis of left knee Resolved 10/15/16 M17.12 Sciatica of right side Chronic 02/05/17 M54.31 Enteritis due to Giardia species Resolved 08/11/15 A07.1 Clostridium difficile diarrhea Resolved 08/11/15 A04.72 Closed fracture of clavicle Resolved S42.009A Bilateral carpal tunnel syndrome Resolved G56.03 Advanced directives, counseling/discussion Acute Z71.89 Encounter for [employer] (FAA) examination Acute Z02.9 Onychomycosis Acute B35.1 Anemia Chronic D64.9 Leukopenia Acute D72.819 Fe deficiency anemia Acute D50.9 B12 deficiency anemia Acute D51.9 History of total left knee replacement Acute 09/12/21 Z96.652 Nocturia Acute R35.1 History of urinary urgency Acute Z87.898 Medical History Medical History History of Mohs micrographic surgery for skin cancer R side of mouth/cheek Carpal tunnel syndrome on both sides Surgical History Surgical History History of knee replacement (09/12/21) left History of esophagogastroduodenoscopy (EGD) (~02/10/21) History of colonoscopy (~02/10/21) Hx of tonsillectomy UPPP (Uvulopalatopharyngoplasty) PANCREATIC BIOPSY X 3 pt. states he is un aware of this. Biopsy, Temporal Artery (12/27/11) Tobacco Smoking/Tobacco Use Status: Never Passive smoking exposure: No Second hand exposure: Yes Alcohol Alcohol Intake: current Alcohol intake frequency: a few times a month Alcohol type: beer and wine Substance Use Substance use: Never Substance use type: does not use Vital Signs and Lab Results Vital Signs Most Recent Vital Signs in EMR: Temp Pulse Resp BP Pulse Ox 36.3 C L 56 L 14 124/73 100 07/09/24 06:18 07/09/24 06:18 07/09/24 06:18 07/09/24 06:18 07/09/24 06:18 Lab Results Blood Type / Crossmatch: No Data to Display Complete Blood Count: No Data to Display Complete Metabolic Panel: No Data to Display Liver Function Panel: No Data to Display Coagulation Panel: No Data to Display Cardiac Panel: No Data to Display Arterial Blood Gas: No Data to Display Venous Blood Gas: No Data to Display Pancreas Panel: No Data to Display Thyroid Panel: No Data to Display Infectious Disease: No Data to Display Blood Cultures: No Data to Display Toxicology Panel: No Data to Display Imaging and Studies Imaging and Studies Study information below may be from another EMR and interpreted by another provider. Please see original notes in EMR for more complete details. EKG Summary: 07/03/22 Conclusion Sinus rhythm...normal P axis, V-rate 50- 99 RBBB Anesthesia Assessment and Plan Anesthesia History Personal History: No History of Anesthesia Complications Family History: No Family History of Anesthesia Complications Exercise Tolerance Exercise Tolerance: Metabolic Equivalents>4 Pertinent Negatives Pertinent Negatives: No Symptoms of GERD, No Major Cardiovascular Symptoms or Complaints, No Major Pulmonary Symptoms or Complaints and No History of CVA/TIA Cardiac & Pulmonary Exam Cardiac Exam: Normal S1/S2 Heart Sounds Pulmonary Exam: Clear Bilateral Breath Sounds Implantable Cardiac Device Does patient have a Pacemaker or an ICD?: No Airway Exam Known Difficult Airway: No Mallampati Class: 1 Mouth Opening: Normal (> 3cm) Thyromental Distance: Greater than 3 cm Neck Range of Motion: Full ROM Neck Circumference: Normal Teeth Condition: Normal Dentition ASA Classification ASA Score: ASA 2 Emergency Case?: No NPO Status NPO Status: NPO Clears >2 hours, Solids >8 hours Anesthesia Plan Resuscitation Status: Full Code Anesthesia Technique: General Anesthesia Airway Planned: Endotracheal Tube Pain Management: Surgeon and patient request nerve block Monitors Used: Standard Monitors, Arterial Line (Possible A-line placement ) and SedLine Preoperative Comments:: Previous anesthetics G1V with [place] 3, EZ mask. Plan GETA, interscalene block sedline, adequate IV access, +/- A-line
[2024-07-09] MEDS: Lactated Ringers 1,000 ML 30 ML IV (06:50)
--- NOTE | 2024-07-09 07:06 | W.PM.DSUDISC ---
Date of service: 07/09/24 Time of Service: 11:00 Discharge Plan Disposition Patient Disposition: Home Condition: Stable Discharge Details Attending Provider: Chinedu Baird Primary Care Provider: Lobo Mc Home Meds and New Rx's Prescriptions: New naproxen 250 mg tablet 250 mg PO BID PRN (Reason: moderate pain and swelling) Qty: 40 0RF tramadol 50 mg tablet 50 mg PO Q8H PRN (Reason: severe pain) Qty: 9 0RF amoxicillin 500 mg capsule 500 mg PO TID 14 Days Qty: 42 0RF Bio-K plus 50 billion cell capsule,delayed release(DR/EC) 1 cap PO DAILY 14 Days Qty: 14 0RF Rx Instructions: Use while on antibiotic Continued vitamin G69-rhbrk acid 1,000-400 mcg Tablet, Sublingual 1 tab SUBLINGUAL DAILY acetaminophen [Acetaminophen Extra Strength] 500 mg tablet 500 mg PO ONCE Discharge Instructions Additional Instructions: Surgery: Left revision reverse total shoulder arthroplasty (up-sized glenosphere, increased humeral length, constrained) Activity: Do not lift anything heavier than a coffee. You should keep your arm at your side in a relatively neutral position at all times except for gentle range of motion exercises, physical therapy, and essential activities. You should use the sling whenever you are out of the house. At home it is best to remove the sling and rest the arm on a pillow at your side or support the operative side with your other hand. A physical therapy prescription will be sent electronically to start in about 3 weeks. Accelerated Reverse TSA Protocol. Prescriptions: Amoxicillin 500 mg take 1 three times daily for 14 days to prevent infection Bio-K plus (probiotic) take 1 daily while on antibiotic Naproxen 250 mg take 1 every 12 hours with a meal as needed for moderate pain Tramadol 50 mg take 1 every 8 hours as needed for severe pain You may use [id number] Tylenol (acetaminophen) as needed for mild pain. These pain medications may be taken all at once or in different combinations as needed. Also, recommend Colace (docusate) as a stool softener as surgery and pain medicine cause constipation. You may try [id number] diphenhydramine (Benadryl) 25-50 mg nightly as a sleep aid Dressings: Leave dressing in place until follow-up. Keep clean and dry at all times. No showers please. Follow-up: 10-[address] Baird You may take off the leg compression stockings this evening at home. You may also leave them on a few days longer if you have a history of leg swelling or edema. Please call the office during business hours with any questions or concerns. Let us know right away if you develop any redness, drainage, fevers, chest pain, or trouble breathing. Do not drink alcohol or drive for at least 24 hours after anesthesia. 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
--- NOTE | 2024-07-09 07:26 | W.PM.OP ---
Date of service: 07/09/24 Time of Service: 07:30 Operative Note Operative Note DATE OF PROCEDURE: 07/09/24 PRE-OP DIAGNOSIS: Left reverse total shoulder arthroplasty instability POST-OP DIAGNOSIS: same PROCEDURE: Left revision reverse total shoulder arthroplasty, CPT # 39428: Glenoid and humeral components The administrative assistant front desk was medically required as this procedure involves retraction, protection of neurovascular structures, and manipulation of multiple instruments and implants at the same time, which cannot be done without a skilled administrative assistant front desk. SURGEON: Chinedu Baird SENIOUR INSIGHT MANAGER: Latonia Morales ANESTHESIA TYPE: Local By Surgeon, General LMA/ETT and Primary Nerve Block Refer to Anesthesia Record ESTIMATED BLOOD LOSS: 50 PATHOLOGY: other (3x tissue & 2x hardware for cultures) COMPLICATIONS: None Patient was transported to: PACU Patient's condition: stable Implants: [employer] modular glenoid system baseplate 24 mm +2 lateralized -> stayed in [employer] modular glenoid system central post 20 mm -> stayed in [employer] modular glenoid system peripheral locking screws 32 mm inferior, 32 mm superior, 16 mm posterior, 16 mm anterior -> stayed in [employer] modular glenoid system glenosphere 42 +4 mm lateralized -> removed and changed to 45 +4mm lat [employer] humeral stem 135 degrees size 9 -> stayed in [employer] Re[employer] suture cup size 42 posterior offset -> stayed in [employer] spacer size 42 +6 mm -> removed and changed to 42 +12mm [employer] humeral insert size 42 +3 mm constrained -> removed and changed to 42 +3mm constrained combo 45 Indications: Please see complete medical record for details. Findings: Significant anterior instability in mid flexion abduction with moderate instability with the arm at the side as well. No signs of infection, impinging tissue, or hardware failure. Procedure Description: In the operating room, general anesthesia was induced. The patient was positioned beachchair on the operating room table. All bony prominences were well-padded. Preoperative antibiotics were administered. The shoulder was prepped and draped in the usual sterile fashion for shoulder arthroplasty. The correct patient, procedure, and side of the procedure were all verified prior to incision. The previously used deltopectoral incision was marked and preinjected with 0.25% bupivacaine 30 cc containing epinephrine. Sharp dissection was used to reopen skin followed by blunt dissection, which readily was able to reopen the interval and mobilized the cephalic vein laterally again. Deeply, there was an impressive pseudocapsule about the shoulder replacement, which was otherwise devoid largely of rotator cuff. The capsule at the junction of the glenoid and humeral components was incised, no purulence or overt signs of infection encountered. This capsule was incised anteriorly and superiorly and resected to expose the hardware as needed and prevent future impingement. Care was left to maintain capsular structures more anteriorly inferiorly and posteriorly to preserve stability as best possible from soft tissue. 2 samples tissue of this anterior capsule removed and placed into specimen cups. External rotation expose the glenosphere, which was easily removed after unlocking the setscrew and using the extractor. Some fibrinous tissue from the setscrew socket was sent as a third tissue culture. The screw and glenosphere were sent as a fourth culture, hardware. The proximal humerus was then delivered from the wound and external rotation and the plastic liner removed with a rongeur and set as a final fifth culture, also hardware. The titanium spacer was then easily removed after unlocking it setscrew. There was no real soft tissue or anything concerning to removed from the baseplate or suture cup. These glenoid and humeral components were well-fixed to bone and healed solidly. Hemostasis was then obtained and the wound thoroughly inspected and lightly debrided of some additional redundant capsule superiorly. The wound was thoroughly irrigated with Betadine and then normal saline. All surgical team members changed gloves. Trialing was then done with the new components with the larger 45 mm numbness through trial attached to the baseplate and the +6 mm spacer with a +3 mm combo liner. Stability was improved, but humeral length was increased?built up to +12 mm spacer and +3 mm regular, liner to achieve good stability and more appropriate tension on the deltoid and conjoined tendon. The trial components were removed, the wound was copiously irrigated again with normal saline. The final glenosphere was attached, impacted, and locked with appropriate countersinking of the setscrew. Carefully, the proximal humerus was delivered again and the final spacer attached with its setscrew. The combo liner was then attached, constrained chosen due to instability. The shoulder was then, as expected, quite difficult to reduce. Once reduced, range of motion, stability, and tension confirmed to be excellent. The shoulder was copiously irrigated with Betadine and normal saline. Vancomycin powder was distributed deeply about the shoulder and through subcutaneous tissues. The deltopectoral interval was well approximated. Subcutaneous tissue was irrigated then closed using 2-0 Monocryl in a buried interrupted fashion. Skin was closed using 3-0 Monocryl in a buried subcuticular fashion. Skin glue was applied to the incision. A silver impregnated bandage was placed over the incision. The extremity was placed into a shoulder immobilizer. The patient awoke from anesthesia without complication and was taken to the recovery room in stable condition.
--- NOTE | 2024-07-09 07:34 | W.ANESNERVE ---
Nerve Block Single Injection Procedure Date and Time Date Performed: 07/09/24 Procedure Start: 07:15 Location Where Procedure Performed Procedure Location: Day Surgery Unit Reason Performed: Postoperative Analgesia Requesting Provider: Chinedu Baird Timeout Performed Timeout Performed: Yes Monitoring Used ECG, Blood Pressure, SpO2 and See EMR for corresponding vital signs Sterility Sterility: Hand Hygiene, Surgical Cap, Surgical Mask, Sterile Gloves and Chlorhexidine Sedation Given During Procedure Sedation Given (Indicate Dose Given): Versed IV Dose:: 1mg Patient Mental Status Patient Mental Status: Sedate with meaningful communication Nerve Block 1st Nerve Block: Laterality: Left Block Type: Interscalene Ultrasound Image Saved?: Yes Needle / Catheter Used: 80mm SonoPlex II Local Anesthetic Bolus (Indicate Dose Given): Lidocaine used for local infiltration of skin, Injected in 3-5ml increments after negative blood aspiration, Bupivacaine 0.5% Dose:: 10ml and Exparel Dose:: 10ml Additives (Indicate Dose Given): None Ultrasound: Sterile probe cover and gel used Nerve Stimulator: Supplement to Ultrasound use and No twitch or parasthesia noted < 0.5 mA Paresthesia: Left Paresthesia Duration: Transient Procedure Tolerated: No Complications and Patient tolerated well Procedure Outcome: Successful Performed By: Avinash Antony Supervised By: Matthew Gutiérrez
[2024-07-09] MEDS: ceFAZolin 2 GM/50 ML BAG IVPB (07:49)
[2024-07-09] MEDS: TRANEXAMIC ACID/SOD. CHL. 1,000 MG/100 ML BAG 600 MG IVPB (08:00)
[2024-07-09] MEDS: Bupivacaine 0.25% Pres-Free W/EPI 30 ML VIAL (08:30)
--- NOTE | 2024-07-09 11:30 | DI.RAD_ITS ---
Exam(s) XR SHOULDER LT COMPLETE 2+V EXAM: XR SHOULDER LT COMPLETE 2+V INDICATION: Post-op. COMPARISON: CR XR SHOULDER LT COMPLETE 2+V from 05/05/[address] UPPER EXTREMITY LT WO from 05/08/2024 TECHNIQUE: 2D digital imaging was performed. Two views. Portable FINDINGS: Air is seen in the soft tissues above the level of the glenohumeral joint prosthesis. the prosthesi s appears grossly unchanged given differences in projection. DATA REPOSITORY: RADIATION DOSE DELIVERED:
[2024-07-09] MEDS: Lactobacillus Acidophilus CAP 1 CAP PO (12:01)
[2024-07-09] MEDS: ceFAZolin 1 GM/50 ML BAG IVPB (12:02)
[2024-07-09] MEDS: Normal Saline Flush 10 ML SYR IV (12:08)
--- NOTE | 2024-07-09 14:26 | W.ANESPOSTOP ---
Postoperative Evaluation Date, Time and Location Date Performed: 07/09/24 Time Performed: 14:26 Patient Location: Day Surgery Unit Vital Signs Most Recent Imported Vital Signs: Most Recent Vital Signs Temp Pulse Resp BP Pulse Ox 36.0 C L 57 L 20 114/67 97 07/09/24 11:55 07/09/24 11:55 07/09/24 11:55 07/09/24 11:55 07/09/24 11:55 Pain Score Most Recent Pain Score: Most Recent Pain Score Pain Level 0 07/09/24 11:55 Assessment Mental Status: Awake (Alert & Oriented to Patient Baseline) Airway and Respiratory Function: Patent airway with normal (patient baseline) respiratory exam Cardiovascular Function: Hemodynamically Stable Hydration Status: Adequately Hydrated Nausea & Vomiting: No Nausea or Vomiting Pain: Pt. Denies Any Pain Peripheral Nerve Block: Regional nerve block not resolved at time of post operative discharge
== END 2024-07-09 13:25 | disposition home or self-care (01) ==
PROVIDERS: PCP Family Medicine; Visit Provider Student in an Organized Health Care Education/Training Program
PROC: (CPT 23472; principal; 2024-07-09 07:30)
DX: T84.028A Dislocation of other internal joint prosthesis, initial encounter (principal); Z96.612 Presence of left artificial shoulder joint; M25.312 Other instability, left shoulder
CPT/HCPCS: 23474; 76942; 87077; 87181; 73030; 87070; 87075; 87186; 87205; C9290; J0131; J0665; J0690; J1100; J2250; J2371; J2405; J2704; J3370

== ENCOUNTER 2024-07-21 15:25 | Outpatient (CLI) | payer MEDICARE, SELFPAY ==
--- NOTE | 2024-07-21 09:30 | DI.RAD_ITS ---
Exam(s) XR SHOULDER LT COMPLETE 2+V EXAM: XR SHOULDER LT COMPLETE 2+V CLINICAL HISTORY: evaluate s/p surgery. TECHNIQUE: 2D digital imaging was performed. Two images were obtained. Grashey and Y views were obt ained. COMPARISON: CR XR SHOULDER LT COMPLETE 2+V from 07/09/2024 FINDINGS: BONES: There are stable post operative changes of a left total reverse shoulder replacement present. No fracture or dislocation. JOINTS: The orthopedic hardware is in good position. No evidence of hardware loosening. SOFT TISSUE: Normal. IMPRESSION: Stable left total reverse shoulder replacement. DATA REPOSITORY: RADIATION DOSE DELIVERED:
== END 2024-07-21 15:26 | disposition home or self-care (01) ==
LOC: DIORS 15:25
PROVIDERS: PCP Family Medicine; Visit Provider Student in an Organized Health Care Education/Training Program
DX: T84.028A Dislocation of other internal joint prosthesis, initial encounter (principal); Z96.612 Presence of left artificial shoulder joint
CPT/HCPCS: 73030

== ENCOUNTER → 2024-08-04 09:47 | Outpatient (BNVA) | payer MEDICARE, SELFPAY | PROVIDERS: PCP Family Medicine; Referring Provider Family Medicine; Visit Provider Student in an Organized Health Care Education/Training Program | DX: Z47.89 Encounter for other orthopedic aftercare (principal); T84.028A Dislocation of other internal joint prosthesis, initial encounter; Z96.612 Presence of left artificial shoulder joint | CPT/HCPCS: 99024 ==

== ENCOUNTER 2024-08-11 08:54 | Outpatient (CLI) | payer MEDICARE, SELFPAY ==
[2024-08-11 12:38] LABS: Hemoglobin A1C 6.1 % (<5.7)
[2024-08-11 19:11] LABS: PSA, Diagnostic 13.7 ng/mL (<=6.5)
== END 2024-08-11 08:55 | disposition home or self-care (01) ==
LOC: LOS 08:55
PROVIDERS: PCP Family Medicine; Referring Provider Family Medicine; Visit Provider Family Medicine
DX: E11.51 Type 2 diabetes mellitus with diabetic peripheral angiopathy without gangrene (principal); I70.209 Unspecified atherosclerosis of native arteries of extremities, unspecified extremity; C61 Malignant neoplasm of prostate; Z11.59 Encounter for screening for other viral diseases
CPT/HCPCS: 36415; 83036; 84153

== ENCOUNTER → 2024-08-21 07:44 | Outpatient (BNVA) | payer MEDICARE, SELFPAY | PROVIDERS: PCP Family Medicine; Visit Provider Urology | DX: R35.0 Frequency of micturition (principal); R39.15 Urgency of urination; R97.20 Elevated prostate specific antigen [PSA] | CPT/HCPCS: 99213 ==

== ENCOUNTER 2024-09-01 15:32 | Outpatient (CLI) | payer MEDICARE, SELFPAY ==
--- NOTE | 2024-09-01 09:00 | DI.RAD_ITS ---
Exam(s) XR SHOULDER LT COMPLETE 2+V EXAM: XR SHOULDER LT COMPLETE 2+V CLINICAL HISTORY: F/U LEFT RTSA. TECHNIQUE: 2D digital imaging was performed. Two images were obtained. Grashey and Y views were obt ained. COMPARISON: CR XR SHOULDER LT COMPLETE 2+V from 07/21/2024 FINDINGS: BONES: There are stable post operative changes of a left total reverse shoulder arthroplasty present. No fracture or dislocation. JOINTS: The orthopedic hardware is in good position. No evidence of hardware loosening. SOFT TISSUE: Normal. IMPRESSION: Stable left reverse total shoulder arthroplasty. DATA REPOSITORY: RADIATION DOSE DELIVERED:
== END 2024-09-01 15:33 | disposition home or self-care (01) ==
LOC: DIORS 15:32
PROVIDERS: PCP Family Medicine; Visit Provider Student in an Organized Health Care Education/Training Program
DX: Z47.1 Aftercare following joint replacement surgery (principal); T84.028A Dislocation of other internal joint prosthesis, initial encounter; Z96.612 Presence of left artificial shoulder joint
CPT/HCPCS: 99024; 73030

== ENCOUNTER 2024-10-30 13:04 | Emergency (ER) | payer MEDICARE, SELFPAY ==
[2024-10-30 13:05] VITALS: BP 125/72; PULSE 74; RESP 16; TEMP 36.8; O2SAT 97
--- NOTE | 2024-10-30 13:31 | W.ED.GENAD ---
Discharge Plan Disposition Patient Disposition: Home Condition: Stable Discharge Details Clinical Impression: Fracture of ankle, lateral malleolus, closed Primary Care Provider: Lobo Mc ED Provider: Guerline Jones Home Meds and New Rx's Prescriptions: No Action vitamin Q40-rwvfk acid 1,000-400 mcg Tablet, Sublingual 1 tab SUBLINGUAL DAILY acetaminophen [Acetaminophen Extra Strength] 500 mg tablet 500 mg PO ONCE Discharge Instructions Instructions: How to Use Crutches, Ankle Fracture ED Additional Instructions: It appears you have broken a bone in your ankle on the outside where you are hurting, Please stay off your foot is much as possible. Please use the crutches as discussed. Keep the walking boot on except for bathing until you follow-up with orthopedics. Please follow-up with orthopedics within the next week they will call you for an appointment. If you do not hear from them by Saturday or Saturday please give them a call. Please take Tylenol or Ibuprofen with food every 4-6 hours as needed for pain and swelling. Keep your leg elevated above the level of your heart while you are sitting or laying down. Referrals: Richard Iglesias MD [ [id number] STAFF PHYSICIAN] - 1 week HPI General Mode of arrival: ambulatory. Date/Time Provider Initiated Documentation: 10/30/24 13:09. Limitations to Documentation: no limitations. Information obtained by: patient, RN notes reviewed and old records reviewed. HPI Narrative: 84-year-old male presents to the ER with a chief complaint of right ankle pain and foot swelling and contusion after a mechanical trip and fall on the ice in his driveway yesterday. He did take aspirin and Tylenol today. He reports pain and swelling have improved but he does have increased pain with weightbearing. He does have swelling noted bruising noted laterally, tenderness with palpation to the lateral malleolus and medial malleolus. Distal CMS is intact denies any lower leg pain denies any hip pain back pain did not hit his head no other associated symptoms at this time. Related Data Home Medications ?Medication ?Instructions ?Recorded ?Confirmed vitamin B12 1,000 mcg-folic acid 1 tab sublingual DAILY 02/07/21 10/30/24 400 mcg sublingual tablet acetaminophen 500 mg tablet 500 mg PO ONCE 07/09/24 10/30/24 (Acetaminophen Extra Strength) Allergies Allergy/AdvReac Type Severity Reaction Status Date / Time oxycodone AdvReac Intermediate Agitation Verified 10/30/24 13:10 General Stated Complaint: Orthopedic NEFTALI: 4 Review of Systems All systems reviewed & are unremarkable except as noted in HPI and below Musculoskeletal Musculoskeletal: Reports as per HPI, Reports abnormal gait, Reports arthralgias and Reports joint swelling Neurologic Neurologic: Reports abnormal gait Exam Extrem General: normal to inspection and normal exam except as noted Right lower extremity: ankle Details: tenderness Location: of the lateral malleolus, of the anterior talofibular ligament and anterolaterally, swelling and ecchymosis (Right lateral foot) and foot Course Vital Signs Vital signs: Vital Signs Temperature 36.8 C 10/30/24 13:05 Pulse 74 10/30/24 13:05 Respiratory Rate 16 10/30/24 13:05 Blood Pressure 125/72 10/30/24 13:05 Pulse Oximetry 97 10/30/24 13:05 Temperature 36.8 C 10/30/24 13:05 Temperature Source Temporal Artery Scan 10/30/24 13:05 Pulse 74 10/30/24 13:05 Respiratory Rate 16 10/30/24 13:05 Blood Pressure 125/72 10/30/24 13:05 Blood Pressure Position Sitting 10/30/24 13:05 Pulse Oximetry 97 10/30/24 13:05 Oxygen Delivery Method Room Air 10/30/24 13:05 Oxygen Flow Rate 0 10/30/24 13:05 Pain Level 7 10/30/24 13:05 Medical Decision Making 84-year-old male presents to the ER with a chief complaint of right ankle pain and foot swelling and contusion after a mechanical trip and fall on the ice in his driveway yesterday. He did take aspirin and Tylenol today. He reports pain and swelling have improved but he does have increased pain with weightbearing. He does have swelling noted bruising noted laterally, tenderness with palpation to the lateral malleolus and medial malleolus. Distal CMS is intact denies any lower leg pain denies any hip pain back pain did not hit his head no other associated symptoms at this time. XR ankle and foot ordered. X-ray shows lateral malleolar fracture and avulsion fracture of the medial aspect of the talus. Patient placed in a tall walking boot and instructed on crutch use. He states that he does have crutches at home and does not want them here. Discussed follow-up with orthopedics he verbalized understanding, discussed nonweightbearing status. Patient placed on the care management list to follow-up with orthopedics. This text was generated using [employer] system, please disregard any oddities of phrase or misspellings. Imaging Data Radiologic Study: Imaging: X-Ray Radiologist's impression: EXAM: XR ANKLE RT COMPLETE CLINICAL HISTORY: Fall, pain. TECHNIQUE: 2D digital imaging was performed. Three views of the ankle and foot. COMPARISON: CR XR FOOT RT COMPLETE from 10/30/2024 FINDINGS: BONES: Nondisplaced oblique fracture through the lateral malleolus extending to the level of the ankle mortise. Additional linear fracture fragment seen avulsed from the medial aspect of the talus. No additional fractures are seen in the foot. No bony destructive lesion is seen. Heel spurs. JOINTS: The ankle mortise is normally aligned. SOFT TISSUE: Marked soft tissue swelling around the malleoli, greatest laterally. Vascular calcifications. IMPRESSION: Lateral malleolar fracture. Avulsion fracture at the medial aspect of the talus. 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 01/06/16) [facility] [place]; TRANSVERSE COLON Obstructive sleep apnea syndrome (Chronic) oral appliance uvulopalatopharyngoplasty Sciatica of right side (Chronic 02/05/17) Advanced directives, counseling/discussion (Acute) Encounter for [employer] ([employer]) examination (Acute) Onychomycosis (Acute) Anemia (Chronic) 08/2021- resolved , Hct-46 Leukopenia (Acute) 08/2021- [id number] Fe deficiency anemia (Acute) B12 deficiency anemia (Acute) History of total left knee replacement (Acute 09/12/21) Nocturia (Acute) History of urinary urgency (Acute) Medical History History of Mohs micrographic surgery for skin cancer R side of mouth/cheek Carpal tunnel syndrome on both sides Surgical History History of knee replacement (09/12/21) left History of esophagogastroduodenoscopy (EGD) (~02/10/21) History of colonoscopy (~02/10/21) Hx of tonsillectomy UPPP (Uvulopalatopharyngoplasty) PANCREATIC BIOPSY X 3 pt. states he is un aware of this. Biopsy, Temporal Artery (12/27/11) Family History Mother , 87 Heart disease Hyperlipidemia Stroke Father , 87 Hyperlipidemia Stroke Skin cancer Brother Hyperlipidemia Asthma Brother , 79 Hyperlipidemia Throat cancer Prostate cancer Depression Hypertension Maternal Grandfather No problems noted. Paternal Grandfather No problems noted. Maternal Grandmother No problems noted. Paternal Grandmother No problems noted. Son No problems noted. Son No problems noted. Social History Smoking/Tobacco Use Status: Never Second Hand Exposure: Yes Smoking risk assessment performed?: Yes Alcohol Intake: current Alcohol Intake frequency: holidays/special occasions only Alcohol type: beer and wine Drug use: Never Substance use type: does not use Details: alcohol: t-10 Caregiver/Support person: No Household members: spouse Housing: house Number of Children: 2 number of grandchildren: 3 Communication Needs: None Education Level: vocational Do you need help understanding health information?: Rarely current occupation: retired Pets and animals: Yes Pets and animals: dog(s) Sexually active: No Do you think of yourself as: straight/heterosexual Current gender identity: male What is your relationship status?: How often do you talk on the phone with friends or family?: once per week How often do you get together with friends or relatives?: three or more times per week How often do you attend faith or yazdanism services?: 1-3 times per year Do you belong to any clubs or organized social groups?: yes Panel score (0-1 are the most socially isolated patients): 3 What type of physical activity do you participate in: walking and other Details: yard work Duration: 15-30 minutes/day Frequency: 5-6 times per week Charley/Jewish: Synagogue Special charley needs: No Agree to transfusion: Yes Seatbelt use: always Helmet use: No Drive intox or ride w/intox bookmobile driver: No Working smoke detector in home: Yes Carbon monox detector in home: Yes Firearms in home: Yes Firearms unloaded and locked: Yes (loaded and locked) Do you feel safe at home: Yes Do you feel safe in your relationship?: Yes Victim of physical abuse: No Victim of emotional abuse: No Victim of sexual abuse: No Would you like helpful sources: No Additional Social history: [place]
--- NOTE | 2024-10-30 13:56 | DI.RAD_ITS ---
Exam(s) XR ANKLE RT COMPLETE XR FOOT RT COMPLETE EXAM: XR ANKLE RT COMPLETE CLINICAL HISTORY: Fall, pain. TECHNIQUE: 2D digital imaging was performed. Three views of the ankle and foot. COMPARISON: CR XR FOOT RT COMPLETE from 10/30/2024 FINDINGS: BONES: Nondisplaced oblique fracture through the lateral malleolus extending to the level of the ankl e mortise. Additional linear fracture fragment seen avulsed from the medial aspect of the talus. No additional fractures are seen in the foot. No bony destructive lesion is seen. Heel spurs. JOINTS: The ankle mortise is normally aligned. SOFT TISSUE: Marked soft tissue swelling around the malleoli, greatest laterally. Vascular calcifica tions. IMPRESSION: Lateral malleolar fracture. Avulsion fracture at the medial aspect of the talus. DATA REPOSITORY: RADIATION DOSE DELIVERED:
--- NOTE | 2024-10-31 15:12 | NUR.NOTE ---
Accessed Pt chart to document injury on the [facility] Paperwork
--- NOTE | 2024-11-19 07:11 | NUR.NOTE ---
Accessed Pt chart to print the provider notes for [facility].
--- NOTE | 2024-11-20 17:18 | NUR.NOTE ---
Nursing Note: Chart accessed for investigation of patient feed back
== END 2024-10-30 14:32 | disposition home or self-care (01) ==
PROVIDERS: Emergency Provider Registered Nurse Emergency; PCP Family Medicine
DX: S82.61XA Displaced fracture of lateral malleolus of right fibula, initial encounter for closed fracture (principal); W00.0XXA Fall on same level due to ice and snow, initial encounter
CPT/HCPCS: 99284; 73610; 73630; 99283

== ENCOUNTER → 2024-11-03 10:53 | Outpatient (BNVA) | payer MEDICARE, SELFPAY | PROVIDERS: PCP Family Medicine; Referring Provider Family Medicine; Visit Provider Student in an Organized Health Care Education/Training Program | DX: S82.61XD Displaced fracture of lateral malleolus of right fibula, subsequent encounter for closed fracture with routine healing (principal); W19.XXXD Unspecified fall, subsequent encounter | CPT/HCPCS: 99214 ==

== ENCOUNTER 2024-11-24 15:31 | Outpatient (CLI) | payer MEDICARE, SELFPAY ==
--- NOTE | 2024-11-24 08:15 | DI.RAD_ITS ---
Exam(s) XR SHOULDER LT COMPLETE 2+V EXAM: XR SHOULDER LT COMPLETE 2+V CLINICAL HISTORY: F/U LEFT RTSA. TECHNIQUE: 2D digital imaging was performed. Two images were obtained. Grashey and Y views were obt ained. COMPARISON: CR XR SHOULDER LT COMPLETE 2+V from 09/01/2024 FINDINGS: BONES: There are stable post operative changes of a left reverse total shoulder arthroplasty present. No fracture or dislocation. JOINTS: The orthopedic hardware is in good position. No evidence of hardware loosening. SOFT TISSUE: Note is again made of a hiatal hernia. IMPRESSION: Stable left reverse total shoulder arthroplasty. DATA REPOSITORY: RADIATION DOSE DELIVERED:
== END 2024-11-24 15:32 | disposition home or self-care (01) ==
LOC: DIORS 15:32
PROVIDERS: PCP Family Medicine; Visit Provider Student in an Organized Health Care Education/Training Program
DX: T84.028A Dislocation of other internal joint prosthesis, initial encounter (principal); Z96.612 Presence of left artificial shoulder joint
CPT/HCPCS: 99213; 73030

== ENCOUNTER 2024-12-01 14:44 | Outpatient (CLI) | payer MEDICARE, SELFPAY ==
--- NOTE | 2024-12-01 13:45 | DI.RAD_ITS ---
Exam(s) XR ANKLE RT COMPLETE EXAM: XR ANKLE RT COMPLETE CLINICAL HISTORY: F/U FRACTURE. TECHNIQUE: 2D digital imaging was performed of the right ankle. Three images were obtained. AP, la teral and oblique views were obtained. COMPARISON: CR XR ANKLE RT COMPLETE from 10/30/2024 FINDINGS: BONES: There is no significant change in alignment of the oblique fracture of the distal right fibula . The medial aspect of the fracture lies at the level of the ankle joint. Minimal lateral displacem ent of the distal fracture is seen. There is callus formation about the fracture suggesting some int erval healing. No bony destructive lesion is seen. There is a small enthesophyte at the posterior ca lcaneus. There is a moderate-sized plantar calcaneal spur. JOINTS: The ankle mortise is normally aligned. SOFT TISSUE: There is soft tissue swelling about the ankle. The linear density at the medial aspect of the talus is again seen and is unchanged. IMPRESSION: Stable alignment of the distal fibular fracture. DATA REPOSITORY: RADIATION DOSE DELIVERED:
== END 2024-12-01 14:45 | disposition home or self-care (01) ==
LOC: DIORS 14:44
PROVIDERS: PCP Family Medicine; Referring Provider Family Medicine; Visit Provider Student in an Organized Health Care Education/Training Program
DX: S82.61XD Displaced fracture of lateral malleolus of right fibula, subsequent encounter for closed fracture with routine healing; W19.XXXD Unspecified fall, subsequent encounter
CPT/HCPCS: 99213; 73610

== ENCOUNTER 2024-12-22 11:26 | Outpatient (CLI) | payer MEDICARE, SELFPAY ==
[2024-12-22 19:35] LABS: PSA, Diagnostic 13.1 ng/mL (<=6.5)
[2024-12-22 20:26] LABS: Hepatitis C Ab w Rflx HCV PCR Negative (Negative)
== END 2024-12-22 11:27 | disposition home or self-care (01) ==
LOC: LBO 11:27
PROVIDERS: PCP Family Medicine; Visit Provider Urology
DX: R97.20 Elevated prostate specific antigen [PSA] (principal); Z11.59 Encounter for screening for other viral diseases
CPT/HCPCS: 36415; 86803; 84153

== ENCOUNTER → 2024-12-29 09:47 | Outpatient (BNVA) | payer MEDICARE, SELFPAY | PROVIDERS: PCP Family Medicine; Visit Provider Urology | DX: R97.20 Elevated prostate specific antigen [PSA] (principal) | CPT/HCPCS: 99213 ==

== ENCOUNTER 2025-01-05 11:08 | Outpatient (CLI) | payer MEDICARE, SELFPAY ==
--- NOTE | 2025-01-05 07:45 | DI.RAD_ITS ---
Exam(s) XR ANKLE RT COMPLETE EXAM: XR ANKLE RT COMPLETE CLINICAL HISTORY: F/U FRACTURE. TECHNIQUE: 2D digital imaging was performed of the right ankle. Three images were obtained. AP, la teral and oblique views were obtained. COMPARISON: CR XR ANKLE RT COMPLETE from 12/01/2024 FINDINGS: BONES: There has been no change in alignment of the fracture involving the distal fibula. Portions o f the fracture line are still visualized. No new fracture is identified. No bony destructive lesion is seen. There is a plantar calcaneal spur. There is an enthesophyte at the posterior calcaneus. JOINTS: The ankle mortise is normally aligned. SOFT TISSUE: The soft tissue swelling around the ankle has decreased. IMPRESSION: Stable alignment of the distal right fibular fracture. DATA REPOSITORY: RADIATION DOSE DELIVERED:
== END 2025-01-05 11:09 | disposition home or self-care (01) ==
LOC: DIORS 11:40
PROVIDERS: PCP Family Medicine; Referring Provider Family Medicine; Visit Provider Student in an Organized Health Care Education/Training Program
DX: S82.61XD Displaced fracture of lateral malleolus of right fibula, subsequent encounter for closed fracture with routine healing (principal); X58.XXXD Exposure to other specified factors, subsequent encounter; R60.0 Localized edema
CPT/HCPCS: 99213; 73610

== ENCOUNTER 2025-06-15 08:20 | Outpatient (CLI) | payer MEDICARE, SELFPAY ==
[2025-06-15 19:56] LABS: PSA, Diagnostic 13.7 ng/mL (<=6.5)
== END 2025-06-15 08:21 | disposition home or self-care (01) ==
LOC: LBO 08:20
PROVIDERS: PCP Family Medicine; Visit Provider Urology
DX: R97.20 Elevated prostate specific antigen [PSA] (principal)
CPT/HCPCS: 36415; 84153

== ENCOUNTER 2025-06-16 09:23 | Emergency (ER) | payer MEDICARE, SELFPAY ==
[2025-06-16 09:28] VITALS: BP 169/98; PULSE 91; RESP 18; TEMP 36.5; O2SAT 97
[2025-06-16 09:58] LABS: Abs Immature Grans 0.03 10^3/uL (0.0-0.06); HCT 35.4 % (40.0-50.0); HGB 10.5 g/dL (13.5-17.5); Immature Grans % 0.5 %; MCH 22.7 pg (27.0-33.0); MCHC 29.7 % (32.0-36.0); MCV 77 fL (80-95); MPV 10.2 fL (8.0-11.0); Platelet Count 203 10^3/uL (130-400); RBC 4.62 10^6/uL (4.36-5.78); RDW 18.5 % (11.8-14.1); RDW-SD 50.1 fL; WBC 5.66 10^3/uL (4.4-10.8)
[2025-06-16 10:16] LABS: ALT 16 U/L (16-63); AST 14 U/L (15-37); Albumin 3.7 g/dL (3.4-5.0); Alkaline Phosphatase 82 U/L (46-116); Anion Gap 7.9 mmol/L (3-11); BUN 14 mg/dL (7-18); Bilirubin, Total 0.3 mg/dL (0.2-1.0); CO2 32.1 mmol/L (21.0-32.0); Calcium 9.3 mg/dL (8.5-10.1); Chloride 105 mmol/L (98-107); Estimated GFR 75.14 (mL/min/1.73m2); Glucose 135 mg/dL (74-106); Lipase 21 U/L (<78); Potassium 3.9 mmol/L (3.5-5.1); Sodium 145 mmol/L (136-145); Total Protein 7.2 g/dL (6.4-8.2)
--- NOTE | 2025-06-16 10:16 | W.ED.GENAD ---
Discharge Plan Disposition Patient Disposition: Home Condition: Stable Discharge Details Clinical Impression: Benign prostatic hyperplasia with urinary retention, Constipation Primary Care Provider: Lobo Mc ED Provider: Gene Adamson Home Meds and New Rx's Prescriptions: Continued vitamin [id number] acid 1,000-400 mcg Tablet, Sublingual 1 tab SUBLINGUAL DAILY acetaminophen [Acetaminophen Extra Strength] 500 mg tablet 500 mg PO ONCE Discharge Instructions Instructions: Benign prostatic hyperplasia (enlarged prostate), Urinary Retention, Constipation, Adult ED Additional Instructions: You were seen in the emergency department for your constipation and urinary retention due to enlarged prostate, please use MiraLAX at home to care constipation, we had to place a Bee catheter that should remain in place to prevent any complications of urinary retention for a few days. Please follow-up with the urology office for when they may remove it for a trial of voluntary voiding. Please do not hesitate to return to the ER for any emergent concerns Referrals: Lobo Mc MD [Primary Care Provider, Medicine] Reuben Serrano MD [ [facility] STAFF PHYSICIAN, Urology] Discharge Data Discharge Date/Time-TO BE ENTERED AT DEPARTURE: 06/16/25 15:16 HPI General Date/Time Provider Initiated Documentation: 06/16/25 09:40. HPI Narrative: 84 year-old male presents to ED today by POV/ambulating with his with a chief complaint of constipation for the past 2 days- and having difficulty urinating- not having any urine today, has not tried laxative. Quality described as generalized abdominal cramping, no radiation to vomiting, chest pain, shortness of breath, fever, black/bloody diarrhea. Severity is described as mild to moderate. Palliating factors include nothing attempted. Provoking factors include nothing specific. Patient not anticoagulated. Related Data Home Medications ?Medication ?Instructions ?Recorded ?Confirmed vitamin B12 1,000 mcg-folic acid 1 tab sublingual DAILY 02/07/21 06/16/25 400 mcg sublingual tablet acetaminophen 500 mg tablet 500 mg PO ONCE 07/09/24 06/16/25 (Acetaminophen Extra Strength) Allergies Allergy/AdvReac Type Severity Reaction Status Date / Time oxycodone AdvReac Intermediate Agitation Verified 01/05/25 08:01 General Stated Complaint: Urinary NEFTALI: 3 Review of Systems All systems reviewed & are unremarkable except as noted in HPI and below Exam Narrative Exam Narrative: GENERAL APPEARANCE: Well-nourished, non-toxic, awake and alert, atraumatic, no acute distress. SKIN: Warm, pink, dry, intact, without rashes/lesions/ulcerations. HEAD: Normocephalic, atraumatic, normal hair distribution for gender/age. EYES: Normal conjunctiva, no exudates on lids/lashes. ENT: Nares patent, no circumoral cyanosis, no facial swelling NECK: Supple, trachea midline, painless cervical ROM. LUNGS/CHEST: Lungs CTA bilaterally- no rhonchi/rales/wheezes diffusely, non-labored respirations, normal A/P diameter, symmetrical expansion, no chest wall deformity HEART (CV/PV): Regular rate and rhythm without murmur, no peripheral edema, no JVD. ABDOMEN: Soft, non-distended, no guarding, diffuse tenderness without peritoneal signs, suprapubic firmness. : no penile lesions, no scrotal swelling MSK: Normal ROM, no swelling/deformity to bilateral UEs or LEs, moving all extremities without weakness, no cyanosis, spine midline without tenderness, normal curvature. NEURO: Mental Status AAOx4 - alert to person, place, time, events No facial droop, no forehead involvement. Motor: No focal weakness - strength 5/5 in bilateral UEs and LEs, proximal and distal, symmetric. Sensory: sensation intact to light touch globally. Gait normal: patient ambulated without ataxia into ED room. PSYCH: euthymic, cooperative, pleasant, appropriate speech Course Vital Signs Vital signs: Vital Signs Temperature 36.5 C 06/16/25 09:28 Pulse 91 H 06/16/25 09:28 Respiratory Rate 18 06/16/25 09:28 Blood Pressure 169/98 H 06/16/25 09:28 Pulse Oximetry 97 06/16/25 09:28 Temperature 36.5 C 06/16/25 09:28 Pulse 91 H 06/16/25 09:28 Respiratory Rate 18 06/16/25 09:28 Blood Pressure 169/98 H 06/16/25 09:28 Pulse Oximetry 97 06/16/25 09:28 Oxygen Delivery Method Room Air 06/16/25 09:28 Oxygen Flow Rate 0 06/16/25 09:28 Pain Level 9 06/16/25 09:28 Lab/Test Results Lab/Test Results: Laboratory Tests Range/Units 06/16/25 09:45 WBC (4.4-10.8) 10^3/uL 5.66 RBC (4.36-5.78) 10^6/uL 4.62 Hgb (13.5-17.5) g/dL 10.5 L Hct (40.0-50.0) % 35.4 L MCV (80-95) fL 77 L MCH (27.0-33.0) pg 22.7 L MCHC (32.0-36.0) % 29.7 L RDW (11.8-14.1) % 18.5 H Plt Count (130-400) 10^3/uL 203 MPV (8.0-11.0) fL 10.2 Immature Gran % % 0.5 Neutrophils % % 88.6 Lymphocytes % % 3.9 Monocytes % % 6.4 Eosinophils % % 0.4 Basophils % % 0.2 Nucleated RBC % (0.0-0.3) % 0.0 Absolute Neutrophils (1.2-6.7) 10^3/uL 5.02 Absolute Lymphocytes (1.2-3.4) 10^3/uL 0.22 L Absolute Monocytes (0.1-0.8) 10^3/uL 0.36 Absolute Eosinophils (0.0-0.7) 10^3/uL 0.02 Absolute Basophils (0.0-0.2) 10^3/uL 0.01 VBG Lactate (<or=2.0) mmol/L 2.2 H* Medical Decision Making This dictation utilizes [id number] dictation software and may contain unedited grammatical errors. 84 year-old male presents to ED today by POV/ambulating with his with a chief complaint of constipation for the past 2 days- and having difficulty urinating- not having any urine today, has not tried laxative. Quality described as generalized abdominal cramping, no radiation to vomiting, chest pain, shortness of breath, fever, black/bloody diarrhea. Severity is described as mild to moderate. Palliating factors include nothing attempted. Provoking factors include nothing specific. Patients' medical history: Memory loss, hemorrhoids, GERD, BPH, anemia. Family and social history: Noncontributory. Pertinent exam findings / vital signs include diffuse abdominal tenderness without focal tenderness or peritoneal signs, no CVA tenderness percussion bilaterally, benign cardiopulmonary status, nontoxic and afebrile. Differential / pathologies of concern include constipation, obstructive uropathy, UTI, small bowel obstruction. Diagnostic studies of: - CBC, CMP, lactate, lipase, UA, CT ABD/pelvis with contrast. - CBC shows no leukocytosis, baseline anemia - Lactate 2.2 - CMP is unremarkable - Lipase negative - UA shows no signs of infection - CT shows a markedly enlarged prostate ED Course/Assessment/Plan: 84-year-old male presents with generalized abdominal pain and constipation as well as urinary retention, has not attempted any stool softeners or laxatives. His bladder scan showed copious amounts of urine and catheter was placed which drained 800 mL, -there was a coud? that did not have a balloon that was placed that eventually fell out, we did trial the patient on a voluntary void here in the emergency department which she did not pass, we placed a Bee catheter and recommend follow-up with urology for trial of voluntary voiding, recommend stool softeners and laxatives for constipation. Findings not consistent with small bowel obstruction, urinary tract infection, toxic presentation or sepsis. Disposition of constipation, benign prostatic hyperplasia with urinary retention. Patient verbalized understanding of the plan and return to ED criteria and engaged in shared decision making. Medical Records Medical records reviewed: Yes I reviewed the patient's medical records. Imaging Data Radiologic Study: Attestation: I personally reviewed and interpreted this imaging study as follows: Imaging: CT Scan Radiologist's impression: EXAM: CT ABDOMEN PELVIS W CLINICAL HISTORY: ABD pain, constipation, urinary retention. TECHNIQUE: Imaging Protocol: Axial computed tomography images with coronal and sagittal reformatted images were created and reviewed CONTRAST MATERIAL: Intravenous: Omnipaque 350 Contrast volume:75 ml Oral: no COMPARISON: CT CT ABDOMEN PELVIS W from 02/10/2021 FINDINGS: ABDOMEN and PELVIS: Lung Bases: No acute findings. Large hiatal hernia containing the majority of the stomach. A portion of the pancreas as well as mesenteric vessels also are herniated above the level of the diaphragm. No evidence of obstruction. Vessels are patent.. Liver: Normal density. No suspicious mass. Gallbladder and biliary tract: No radiodense calculus. No wall thickening or pericholecystic fluid. No biliary dilation. Pancreas: Normal density. No abnormal calcifications or inflammatory process. No evidence of mass. Spleen: Normal. Kidneys: Normal size, contour and axis. No radiodense stones. No obstructive uropathy. Multiple bilateral renal cysts are again noted. No suspicious masses seen. Adrenal glands: No masses seen. Vasculature: Abdominal aorta non-dilated. Soft tissues: Unremarkable. Bladder: Empty. Unable to be evaluated. Bowel: No obstruction. No bowel wall thickening. Appendix normal. Diverticulosis of the descending and sigmoid colon. No evidence of diverticulitis. Normal quantity of stool. Peritoneal cavity: No ascites. No focal collection. No mesenteric inflammatory response. No free air. Bones: Unremarkable severe degenerative changes of the lumbar spine. Bilateral L5 spondylolysis and mild L5-S1 spondylolisthesis. Reproductive organs: Unremarkable markedly enlarged prostate, 7.4 by 7.1 x 8.6 cm. Catheter within the urethra seen to the level of the base of the penis. Focal correlation recommended. Lymph nodes: No pathologically enlarged lymph nodes. IMPRESSION:: No acute abnormality in the abdomen or pelvis. Markedly enlarged prostate. A catheter is present within the penile urethra. Lab Data Lab results reviewed: Yes I reviewed the patient's lab results. Labs: Laboratory Tests Range/Units 06/16/25 06/16/25 09:45 10:15 WBC (4.4-10.8) 10^3/uL 5.66 RBC (4.36-5.78) 10^6/uL 4.62 Hgb (13.5-17.5) g/dL 10.5 L Hct (40.0-50.0) % 35.4 L MCV (80-95) fL 77 L MCH (27.0-33.0) pg 22.7 L MCHC (32.0-36.0) % 29.7 L RDW (11.8-14.1) % 18.5 H Plt Count (130-400) 10^3/uL 203 MPV (8.0-11.0) fL 10.2 Immature Gran % % 0.5 Neutrophils % % 88.6 Lymphocytes % % 3.9 Monocytes % % 6.4 Eosinophils % % 0.4 Basophils % % 0.2 Nucleated RBC % (0.0-0.3) % 0.0 Absolute Neutrophils (1.2-6.7) 10^3/uL 5.02 Absolute Lymphocytes (1.2-3.4) 10^3/uL 0.22 L Absolute Monocytes (0.1-0.8) 10^3/uL 0.36 Absolute Eosinophils (0.0-0.7) 10^3/uL 0.02 Absolute Basophils (0.0-0.2) 10^3/uL 0.01 VBG Lactate (<or=2.0) mmol/L 2.2 H* Sodium (136-145) mmol/L 145 Potassium (3.5-5.1) mmol/L 3.9 Chloride (98-107) mmol/L 105 Carbon Dioxide (21.0-32.0) mmol/L 32.1 H Anion Gap (3-11) mmol/L 7.9 BUN (7-18) mg/dL 14 Creatinine (0.70-1.30) mg/dL 1.0 Est GFR (CKD-EPI 2020) (mL/min/1.73m2) 75.14 Glucose (74-106) mg/dL 135 H Calcium (8.5-10.1) mg/dL 9.3 Total Bilirubin (0.2-1.0) mg/dL 0.3 AST (15-37) U/L 14 L ALT (16-63) U/L 16 Alkaline Phosphatase (46-116) U/L 82 Total Protein (6.4-8.2) g/dL 7.2 Albumin (3.4-5.0) g/dL 3.7 Lipase (<78) U/L 21 Urine Color (Yellow) Yellow Urine Clarity (Clear) Sl Cloudy Urine pH (5-8) 7.5 Ur Specific [place] (1.005-1.025) 1.020 Urine Protein (Neg-Trace) mg/dL Negative Urine Ketones (Negative) mg/dL Negative Urine Blood (Negative) Small H Urine Nitrite (Negative) Negative Urine Bilirubin (Negative) Negative Urine Urobilinogen (Up to 0.2) mg/dL 1.0 H Ur Leukocyte Esterase (Negative) Negative Urine RBC (0-2) HPF 3-5 H Urine WBC (0-5) HPF Negative Ur Epithelial Cells (Negative) HPF Rare Urine Crystals (Negative) HPF Moderate Amorphous Urine Bacteria (Negative) HPF Negative Urine Casts (Negative) LPF Negative Urine Mucus (Negative) Negative Ur Culture Indicated? 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) Advanced directives, counseling/discussion (Acute) Encounter for [employer] (FAA) examination (Acute) Onychomycosis (Acute) Anemia (Chronic) 08/2021- resolved , Hct-46 Leukopenia (Acute) 08/2021- [id number] Fe deficiency anemia (Acute) B12 deficiency anemia (Acute) History of total left knee replacement (Acute 09/12/21) Nocturia (Acute) History of urinary urgency (Acute) Medical History History of Mohs micrographic surgery for skin cancer R side of mouth/cheek Carpal tunnel syndrome on both sides Surgical History History of knee replacement (09/12/21) left History of esophagogastroduodenoscopy (EGD) (~02/10/21) History of colonoscopy (~02/10/21) Hx of tonsillectomy UPPP (Uvulopalatopharyngoplasty) PANCREATIC BIOPSY X 3 pt. states he is un aware of this. Biopsy, Temporal Artery (12/27/11) Family History Mother , 87 Heart disease Hyperlipidemia Stroke Father , 87 Hyperlipidemia Stroke Skin cancer Brother Hyperlipidemia Asthma Brother , 79 Hyperlipidemia Throat cancer Prostate cancer Depression Hypertension Maternal Grandfather No problems noted. Paternal Grandfather No problems noted. Maternal Grandmother No problems noted. Paternal Grandmother No problems noted. Son No problems noted. Son No problems noted. Social History Smoking/Tobacco Use Status: Never Second Hand Exposure: Yes Smoking risk assessment performed?: Yes Alcohol Intake: current Alcohol Intake frequency: a few times a month Alcohol type: beer and wine Drug use: Never Substance use type: does not use Details: alcohol: t-10 Caregiver/Support person: No Household members: spouse Housing: house Number of Children: 2 number of grandchildren: 3 Communication Needs: None Education Level: vocational Do you need help understanding health information?: Rarely current occupation: retired Pets and animals: Yes Pets and animals: dog(s) Sexually active: No Do you think of yourself as: straight/heterosexual Current gender identity: male What is your relationship status?: How often do you talk on the phone with friends or family?: once per week How often do you get together with friends or relatives?: three or more times per week How often do you attend mormonism or jainism services?: 1-3 times per year Do you belong to any clubs or organized social groups?: yes Panel score (0-1 are the most socially isolated patients): 3 What type of physical activity do you participate in: walking and other Details: yard work Duration: 15-30 minutes/day Frequency: 5-6 times per week Charley/Pentecostal: Morteza Special charley needs: No Agree to transfusion: Yes Seatbelt use: always Helmet use: No Drive intox or ride w/intox chain saw driver: No Working smoke detector in home: Yes Carbon monox detector in home: Yes Firearms in home: Yes Firearms unloaded and locked: Yes (loaded and locked) Do you feel safe at home: Yes Do you feel safe in your relationship?: Yes Victim of physical abuse: No Victim of emotional abuse: No Victim of sexual abuse: No Would you like helpful sources: No Additional Social history: CRYSTAL
[2025-06-16 10:25] LABS: Glucose Negative (Negative)
[2025-06-16 10:35] LABS: C & S Indicated? No; WBC Negative HPF (0-5)
[2025-06-16] MEDS: Normal Saline - Diluent 50 ML VIAL IJ (11:10)
[2025-06-16] MEDS: Normal Saline Flush 10 ML SYR IVP (11:10)
[2025-06-16] MEDS: Omnipaque 350 MG/ML 100 ML BTL IJ (11:11)
--- NOTE | 2025-06-16 11:28 | DI.CT_ITS ---
Exam(s) CT ABDOMEN PELVIS W EXAM: CT ABDOMEN PELVIS W CLINICAL HISTORY: ABD pain, constipation, urinary retention. TECHNIQUE: Imaging Protocol: Axial computed tomography images with coronal and sagittal reformatted images were created and reviewed CONTRAST MATERIAL: Intravenous: Omnipaque 350 Contrast volume:75 ml Oral: no COMPARISON: CT CT ABDOMEN PELVIS W from 02/10/2021 FINDINGS: ABDOMEN and PELVIS: Lung Bases: No acute findings. Large hiatal hernia containing the majority of the stomach. A portion of the pancreas as well as mesenteric vessels also are herniated above the level of the diaphragm. No evidence of obstruction. Vessels are patent.. Liver: Normal density. No suspicious mass. Gallbladder and biliary tract: No radiodense calculus. No wall thickening or pericholecystic fluid. No biliary dilation. Pancreas: Normal density. No abnormal calcifications or inflammatory process. No evidence of mass. Spleen: Normal. Kidneys: Normal size, contour and axis. No radiodense stones. No obstructive uropathy. Multiple bilateral renal cysts are again noted. No suspicious masses seen. Adrenal glands: No masses seen. Vasculature: Abdominal aorta non-dilated. Soft tissues: Unremarkable. Bladder: Empty. Unable to be evaluated. Bowel: No obstruction. No bowel wall thickening. Appendix normal. Diverticulosis of the descending and sigmoid colon. No evidence of diverticulitis. Normal quantity of stool. Peritoneal cavity: No ascites. No focal collection. No mesenteric inflammatory response. No free air. Bones: Unremarkable severe degenerative changes of the lumbar spine. Bilateral L5 spondylolysis and mild L5-S1 spondylolisthesis. Reproductive organs: Unremarkable markedly enlarged prostate, 7.4 by 7.1 x 8.6 cm. Catheter within the urethra seen to the level of the base of the penis. Focal correlation recommended. Lymph nodes: No pathologically enlarged lymph nodes. IMPRESSION:: No acute abnormality in the abdomen or pelvis. Markedly enlarged prostate. A catheter is present within the penile urethra. RADIATION DOSE DELIVERED: 421.61mGy.cm Total DLP DATA REPOSITORY: All CT scans at this facility are submitted to the National Radiology Data Registry (NRDR) Dose Index Registry (DIR) with the [employer] (ACR). RADIATION OPTIMIZATION: All CT scans at this facility use at least one of these dose optimization techniques: automated exposure control; mA and/or kV adjustment per patient size (includes targeted exams where dose is matched to clinical indication); or iterative reconstruction.
[2025-06-16] MEDS: Lidocaine 2% Jelly 11 ML SYR (12:58)
[2025-06-16] MEDS: Polyethylene Glycol 3350 17 GM PACKET 51 GM PO (12:58)
[2025-06-16 15:15] VITALS: BP 169/98; PULSE 91; RESP 18; TEMP 36.5; O2SAT 97
== END 2025-06-16 15:16 | disposition home or self-care (01) ==
PROVIDERS: Emergency Provider Physician Assistant; PCP Family Medicine
DX: N40.1 Benign prostatic hyperplasia with lower urinary tract symptoms (principal); R33.8 Other retention of urine; R10.30 Lower abdominal pain, unspecified; K59.00 Constipation, unspecified
CPT/HCPCS: 51702; 80053; 83690; 99285; 74177; 81003; 81015; 83605; 85025; 99284; J3490

== ENCOUNTER 2025-06-23 10:12 | Emergency (ER) | payer MEDICARE, SELFPAY ==
[2025-06-23 10:17] VITALS: BP 132/76; PULSE 63; RESP 15; TEMP 36.9; O2SAT 96
--- NOTE | 2025-06-24 12:41 | ED.GENADUL_ITS ---
Discharge Plan Disposition Patient Disposition: Home Condition: Stable Discharge Details Clinical Impression: Acute urinary retention Primary Care Provider: Lobo Mc ED Provider: Fadia Lozano Home Meds and New Rx's Prescriptions: New tamsulosin [Flomax] 0.4 mg capsule 0.4 mg PO DAILY Qty: 7 0RF lidocaine HCl 2 % jelly in applicator 1 applic topical QID Qty: 125 0RF No Action vitamin X34-gazmq acid 1,000-400 mcg Tablet, Sublingual 1 tab SUBLINGUAL DAILY acetaminophen [Acetaminophen Extra Strength] 500 mg tablet 500 mg PO ONCE Discharge Instructions Instructions: Urinary Retention (DC) Additional Instructions: You may apply lidocaine jelly over the area of tenderness around the catheter site Start taking the Flomax daily, this will help with the urinary retention You have an appointment with Dr. Serrano on Saturday I spoke with urology today and they recommend you keep this appointment is at 8:30 in the morning they may try to remove your Bee catheter at this time and do a voiding trial to be sure that you are successful after the removal of the Bee catheter and do not develop urinary retention again Please return should you develop new or worsening symptoms including fever, chills, back pain Referrals: Reuben Serrano MD [ [facility] STAFF PHYSICIAN, Urology] Lobo Mc MD [Primary Care Provider, Medicine] Discharge Data Discharge Date/Time-TO BE ENTERED AT DEPARTURE: 06/23/25 12:15 HPI General Date/Time Provider Initiated Documentation: 06/23/25 10:46 . HPI Narrative: 84-year-old male presents for catheter removal. He states that he had a Bee catheter placed secondary to urinary retention and constipation a week ago. States he was told to have the catheter removed today. He has some mild pain at the tip of his penis. He states this has been since the catheter was placed. Will Related Data Home Medications ?Medication ?Instructions ?Recorded ?Confirmed vitamin B12 1,000 mcg-folic acid 1 tab sublingual DARIO Y 02/07/21 06/23/25 400 mcg sublingual tablet acetaminophen 500 mg tablet 500 mg PO ONCE 07/09/24 (Acetaminophen Extra Strength) lidocaine HCl 2 % mucosal jelly in 1 applic topical QI D #125 mL 06/23/25 applicator tamsulosin 0.4 mg capsule (Flomax) 0.4 mg PO DAILY #7 caps 06/23/25 Previous Rx's ?Medication ?Instructions ?Recorded lidocaine HCl 2 % mucosal jelly in 1 applic topical QI D #125 mL 06/23/25 applicator tamsulosin 0.4 mg capsule (Flomax) 0.4 mg PO DAILY #7 caps 06/23/25 Allergies Allergy/AdvReac Type Severity Reaction Status Date / Time oxycodone AdvReac Intermediate Agitation Verified 06/23/25 10:24 General Stated Complaint: Recheck NEFTALI: 4 Exam Narrative Exam Narrative: Alert and oriented 84-year-old male in no acute distress no abdominal tenderness patient declines assessment of his genitourinary region, no CVA tenderness Course Vital Signs Vital signs: Vital Signs Temperature 36.9 C 06/23/25 10:17 Pulse 63 06/23/25 10:17 Respiratory Rate 15 06/23/25 10:17 Blood Pressure 132/76 06/23/25 10:17 Pulse Oximetry 96 06/23/25 10:17 Temperature 36.9 C 06/23/25 10:17 Temperature Source Oral 06/23/25 10:17 Pulse 63 06/23/25 10:17 Respiratory Rate 15 06/23/25 10:17 Blood Pressure 132/76 06/23/25 10:17 Blood Pressure Position Sitting 06/23/25 10:17 Pulse Oximetry 96 06/23/25 10:17 Oxygen Delivery Method Room Air 06/23/25 10:17 Oxygen Flow Rate 0 06/23/25 10:17 Pain Level 0 06/23/25 10:17 Medical Decision Making Alert and oriented 84-year-old male in no acute distress with recent Bee catheter placement. When I reviewed the note from his prior assessment it sounds like patient was supposed to follow-up with urology in fact he does have an appointment on Saturday with Dr. Serrano. I discussed the case with Mary Ann Gonzalez, nurse practitioner and she recommends adding Flomax to the patient's regimen and having his Bee catheter left in place until Saturday's appointment. Patient denies any new complaints today no fever no chills or change in color of urine. He is encouraged to follow-up on Saturday he was started on Flomax return precautions reviewed and patient expressed understanding. I actually also gave patient some lidocaine jelly which he may apply to the tip of his penis as needed for discomfort. 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 [place]06/16[place] [facility] [place] Obstructive sleep apnea syndrome (Chronic) oral appliance uvulopalatopharyngoplasty Sciatica of right side (Chronic 02/05/17) Advanced directives, counseling/discussion (Acute) Encounter for [employer] ([employer]) examination (Acute) Onychomycosis (Acute) Anemia (Chronic) 08/2021- resolved , [id number] Leukopenia (Acute) 08/2021- [id number] Fe deficiency anemia (Acute) B12 deficiency anemia (Acute) History of total left knee replacement (Acute 09/12/21) Nocturia (Acute) History of urinary urgency (Acute) Medical History History of Mohs micrographic surgery for skin cancer R side of mouth/cheek Carpal tunnel syndrome on both sides Surgical History History of knee replacement (09/12/21) left History of esophagogastroduodenoscopy (EGD) (~02/10/21) History of colonoscopy (~02/10/21) Hx of tonsillectomy UPPP (Uvulopalatopharyngoplasty) PANCREATIC BIOPSY X 3 pt. states he is un aware of this. Biopsy, Temporal Artery (12/27/11) Family History Mother , 87 Heart disease Hyperlipidemia Stroke Father , 87 Hyperlipidemia Stroke Skin cancer Brother Hyperlipidemia Asthma Brother , 79 Hyperlipidemia Throat cancer Prostate cancer Depression Hypertension Maternal Grandfather No problems noted. Paternal Grandfather No problems noted. Maternal Grandmother No problems noted. Paternal Grandmother No problems noted. Son No problems noted. Son No problems noted. Social History Smoking/Tobacco Use Status: Never Second Hand Exposure: Yes Smoking risk assessment performed?: Yes Alcohol Intake: current Alcohol Intake frequency: a few times a month Alcohol type: beer and wine Drug use: Never Substance use type: does not use Details: alcohol: t-10 Caregiver/Support person: No Household members: spouse Housing: house Number of Children: 2 number of grandchildren: 3 Communication Needs: None Education Level: vocational Do you need help understanding health information?: Rarely current occupation: retired Pets and animals: Yes Pets and animals: dog(s) Sexually active: No Do you think of yourself as: straight/heterosexual Current gender identity: male What is your relationship status?: How often do you talk on the phone with friends or family?: once per week How often do you get together with friends or relatives?: three or more times per week How often do you attend presybeterian or bahai services?: 1-3 times per year Do you belong to any clubs or organized social groups?: yes Panel score (0-1 are the most socially isolated patients): 3 What type of physical activity do you participate in: walking and other Details: yard work Duration: 15-30 minutes/day Frequency: 5-6 times per week Charley/Catholic: Morteza Special charley needs: No Agree to transfusion: Yes Seatbelt use: always Helmet use: No Drive intox or ride w/intox fence post driver: No Working smoke detector in home: Yes Carbon monox detector in home: Yes Firearms in home: Yes Firearms unloaded and locked: Yes (loaded and locked) Do you feel safe at home: Yes Do you feel safe in your relationship?: Yes Victim of physical abuse: No Victim of emotional abuse: No Victim of sexual abuse: No Would you like helpful sources: No Additional Social history: [employer]
== END 2025-06-23 12:15 | disposition home or self-care (01) ==
PROVIDERS: Emergency Provider Physician Assistant; PCP Family Medicine
DX: R33.9 Retention of urine, unspecified (principal)
CPT/HCPCS: 99283

== ENCOUNTER → 2025-06-29 08:17 | Outpatient (BNVA) | payer MEDICARE, SELFPAY | PROVIDERS: PCP Family Medicine; Visit Provider Urology | DX: R33.8 Other retention of urine (principal) | CPT/HCPCS: 99213; 51798 ==

== ENCOUNTER → 2025-06-30 08:53 | Outpatient (BNVA) | payer MEDICARE, SELFPAY | PROVIDERS: PCP Family Medicine; Referring Provider Family Medicine; Visit Provider Nurse Practitioner Gerontology | DX: R33.8 Other retention of urine (principal) | CPT/HCPCS: 99214; 81002; 51798; 51702 ==

== ENCOUNTER 2025-06-30 10:10 | Outpatient (REF) | payer MEDICARE, SELFPAY | END 2025-06-30 10:11 | disposition home or self-care (01) | LOC: LBN 10:10 | PROVIDERS: PCP Family Medicine; Visit Provider Nurse Practitioner Gerontology | DX: R33.8 Other retention of urine (principal) | CPT/HCPCS: 87077; 87086 ==

== ENCOUNTER → 2025-07-05 08:00 | Outpatient (BNVA) | payer MEDICARE, SELFPAY | PROVIDERS: PCP Family Medicine; Referring Provider Family Medicine; Visit Provider Nurse Practitioner Gerontology | DX: N40.1 Benign prostatic hyperplasia with lower urinary tract symptoms (principal); R97.20 Elevated prostate specific antigen [PSA]; R33.8 Other retention of urine | CPT/HCPCS: 99213 ==

== ENCOUNTER → 2025-07-08 07:56 | Outpatient (BNVA) | payer MEDICARE, SELFPAY | PROVIDERS: PCP Family Medicine; Referring Provider Family Medicine; Visit Provider Nurse Practitioner Gerontology | DX: R33.8 Other retention of urine (principal) | CPT/HCPCS: 99213 ==

== ENCOUNTER 2025-07-20 09:59 | Outpatient (CLI) | payer MEDICARE, SELFPAY ==
--- NOTE | 2025-07-20 08:00 | DI.RAD_ITS ---
Exam(s) XR SHOULDER LT COMPLETE 2+V EXAM: XR SHOULDER LT COMPLETE 2+V CLINICAL HISTORY: F/U FRACTURE. TECHNIQUE: 2D digital imaging was performed. Three views. COMPARISON: No exams were available for comparison FINDINGS: BONES: No acute fracture is present. No bony destructive lesion is seen. JOINTS: No dislocation present. There is stable alignment of the reverse shoulder prosthesis. SOFT TISSUE: Normal. IMPRESSION: Stable appearance of total shoulder prosthesis DATA REPOSITORY: RADIATION DOSE DELIVERED:
== END 2025-07-20 10:00 | disposition home or self-care (01) ==
LOC: DIORS 09:59
PROVIDERS: PCP Family Medicine; Visit Provider Student in an Organized Health Care Education/Training Program
DX: Z47.1 Aftercare following joint replacement surgery (principal); Z96.612 Presence of left artificial shoulder joint
CPT/HCPCS: 99213; 73030

== ENCOUNTER → 2025-08-02 13:51 | Outpatient (BNVA) | payer MEDICARE, SELFPAY | PROVIDERS: PCP Family Medicine; Referring Provider Family Medicine; Visit Provider Nurse Practitioner Gerontology | DX: N40.0 Benign prostatic hyperplasia without lower urinary tract symptoms (principal); R97.20 Elevated prostate specific antigen [PSA]; R39.9 Unspecified symptoms and signs involving the genitourinary system | CPT/HCPCS: 99213; 51798 ==